=== PATIENT | female | born 1945 | race Caucasian/White ===

== ENCOUNTER 2022-09-14 07:12 | Outpatient (OUT) | payer MEDICARE, OTHER, SELFPAY ==
[2022-09-14 07:46] LABS: Basophils Absolute Auto 0.1 10^3/uL (0.0-0.1); Eosinophils Absolute Auto 0.2 10^3/uL (0.0-0.7); Eosinophils Percent Auto 2.8 % (0.9-7.0); Hematocrit 40.9 % (36.0-48.0); Hemoglobin 13.4 g/dL (12.0-16.0); Immature Granulocytes Abs Auto 0.01 10^3/uL (0.00-0.03); Immature Granulocytes Pct Auto 0.2 % (0.0-0.5); Lymphocytes Percent Auto 17.1 % (20.5-60.0); Mean Corpuscular HGB Conc 32.8 g/dL (29.9-35.2); Mean Corpuscular Hemoglobin 30.2 pg (26.7-34.0); Mean Corpuscular Volume 92.1 fL (81.0-99.0); Mean Platelet Volume 9.7 fL (9.5-13.5); Monocytes Absolute Auto 0.6 10^3/uL (0.3-0.8); Monocytes Percent Auto 9.7 % (1.7-12.0); Neutrophils Percent Auto 69.2 % (43.0-75.0); Platelet Count 236 10^3/uL (150-450); Red Blood Count 4.44 10^6/uL (4.20-5.40); Red Cell Distribution Width 13.9 % (11.0-15.0); White Blood Count 5.8 10^3/uL (4.0-11.0)
[2022-09-14 08:47] LABS: Bilirubin Urine NEGATIVE (NEGATIVE); Blood Urine NEGATIVE (NEGATIVE); Clarity Urine CLEAR (CLEAR); Color Urine LT. YELLOW (YELLOW); Glucose Urine UA NEGATIVE (NEGATIVE); Ketones Urine NEGATIVE (NEGATIVE); Leukocyte Esterase Urine TRACE (NEGATIVE); Nitrite Urine NEGATIVE (NEGATIVE); Protein Urine NEGATIVE (NEG/TRACE); Specific Gravity Urine 1.015 (1.005-1.025); Urobilinogen Urine 0.2 EU/dL (0.2-1.0); pH Urine 6.5 (5.0-9.0)
[2022-09-14 08:56] LABS: Bacteria Urine TRACE #/HPF (NONE SEEN); RBC Urine 0-2 #/HPF (0-2)
[2022-09-14 08:57] LABS: Cast Seen? NONE SEEN #/LPF (NONE SEEN); Crystals Seen? None Seen #/HPF (None Seen); Mucus Urine NONE SEEN (NONE SEEN); Squamous Epithelial Cell Urine RARE #/LPF (NONE/RARE); Urine Culture Indicated NO
[2022-09-14 10:08] LABS: Free T4 1.27 ng/dL (0.76-1.46)
[2022-09-14 10:13] LABS: Alanine Aminotransferase 19 U/L (14-59); Albumin Level 3.9 g/dL (3.4-5.0); Alkaline Phosphatase 87 U/L (46-116); Anion Gap 11.7; Aspartate Amino Transferase 9 U/L (15-37); BUN Creatinine Ratio 12.7; Bilirubin Total 0.4 mg/dL (0.2-1.0); Calcium 9.3 mg/dL (8.5-10.1); Carbon Dioxide 29.2 mmol/L (21.0-32.0); Chloride 101 mmol/L (98-107); Chol HDL Ratio 4.3; Cholesterol 265 mg/dL (<=200); Estimated GFR (African America >60 (>=60); Estimated GFR (Non-African Ame 53 (>=60); Free T3 2.03 pg/mL (2.18-3.98); Glucose 83 mg/dL (74-106); HDL Cholesterol 61 mg/dL (40-60); Potassium 3.9 mmol/L (3.5-5.1); Sodium 138 mmol/L (136-145); Thyroid Stimulating Hormone 2.993 uIU/mL (0.358-3.740); Total Protein 7.9 g/dL (6.4-8.2); Triglycerides 142 mg/dL (<=150); VLDL CHOLESTEROL 28.4 mg/dL
== END 2022-09-14 07:13 | disposition home or self-care (01) ==
LOC: LAB 07:17
PROVIDERS: PCP Nurse Practitioner; Visit Provider Nurse Practitioner
DX: E06.3 Autoimmune thyroiditis (principal); I73.9 Peripheral vascular disease, unspecified; Z72.0 Tobacco use
CPT/HCPCS: 36415; 80053; 80061; 81001; 84439; 84443; 84481; 85025

== ENCOUNTER 2022-09-15 08:51 | Outpatient (OUT) | payer MEDICARE, OTHER, SELFPAY ==
--- NOTE | 2022-09-15 09:15 | MM_ITS ---
Patient: MARGARITA COSME Exam Date: 09/15/2022 : 1945 Gender:F Ordering : BECKY Ruth Humphries [employer]PER[employer] HELPER Admission #: [id number] Family : Order #: [id number] CLICK HERE TO VIEW EXAM RADIOLOGY REPORT PROCEDURE: MM TOMOSYNTHESIS SCREENING BI COMPARISON: MG MAMM SCREEN ISIDRO W CAD, 07/31/2019. MG MAMM SCREEN ISIDRO W CAD, 07/19/2016. INDICATIONS: Screening Calculator Name NCI Breast Cancer Risk Assessment Tool 5 Year Breast Cancer Risk 1.70% Lifetime Breast Cancer Risk 3.50% Personal Breast Cancer No Personal Ovarian Cancer No Treatments None Family Cancers Sister with cervical cancer at age ~30. LOCATION: [facility] BREAST COMPOSITION: Heterogeneously dense,which may obscure small masses. FINDINGS: DIAGNOSTIC CATEGORY 1--NEGATIVE. NO CHANGE FROM COMPARISON ASSESSMENT. Scattered benign-appearing calcifications are present. RIGHT BREAST: No significant suspicious finding. LEFT BREAST: No significant suspicious finding. RECOMMENDATIONS: ROUTINE MAMMOGRAM AND CLINICAL EVALUATION IN 12 MONTHS. PLEASE NOTE: A NORMAL MAMMOGRAM DOES NOT EXCLUDE THE POSSIBILITY OF BREAST CANCER. A CLINICALLY SUSPICIOUS PALPABLE LUMP SHOULD BE BIOPSIED. Dictated by: Ender Hebert MD on 09/15/2022 at 10:16 Approved by: Ender Hebert MD on 09/15/2022 at 10:17
== END 2022-09-15 08:52 | disposition home or self-care (01) ==
LOC: MAMMO 08:51
PROVIDERS: PCP Nurse Practitioner; Visit Provider Nurse Practitioner
DX: Z12.31 Encounter for screening mammogram for malignant neoplasm of breast (principal); Z80.3 Family history of malignant neoplasm of breast
CPT/HCPCS: 77063; 77067

== ENCOUNTER 2023-03-14 12:58 | Outpatient (OUT) | payer MEDICARE, OTHER, SELFPAY ==
--- NOTE | 2023-03-14 13:08 | XR_ITS ---
The [address] [address] Patient Name: MARGARITA COSME MRN: [id number] date: 1945 Sex: F Assigned Patient Location: LAB Current Patient Location: LAB Accession/Order Number: [id number] Exam Date: 03/14/2023 13:15 Report Date: 03/14/2023 14:55 At the request of: CRISTIAN MCCOY Procedure: XR abdomen 1V EXAM: XR chest 2V, XR ribs LT 2V, XR abdomen 1V HISTORY: Left Side Rib Pain R07.81 COMPARISON: CT angiography abdominal aorta dated 02/07/2020. TECHNIQUE: PA and lateral views of the chest were obtained. FINDINGS: Heart and mediastinal contours are unremarkable in appearance. Findings compatible with calcified granuloma in the right midlung field posteriorly. Small faint patchy density overlying the right midlung field laterally on PA view compatible with mild atelectatic, fibrotic and/or minimal infiltrative change. No obvious pneumothorax. Mild degenerative changes in the dorsal spine with slight S-shaped convexity. AP supine view of the abdomen was obtained. FINDINGS: Bowel gas pattern is grossly nonspecific. No evidence of bowel obstruction. Mildly scattered calcifications overlying the pelvis compatible with phleboliths. Moderate degenerative changes about the visualized lower lumbar spine with mild degenerative changes about the hip joints. Left rib series was performed. FINDINGS: No obvious displaced or deforming rib fractures are seen, small undisplaced fractures may be difficult to identify acutely. No obvious focal lytic or sclerotic lesions are identified. No obvious pneumothorax. Slight S-shaped convexity of the thoracic spine. XR/XR abdomen 1V IMPRESSION: 1. Chest study demonstrates small faint patchy density overlying the right midlung field laterally on PA view compatible with mild atelectatic, fibrotic and/or minimal infiltrative changes. 2. Abdomen study demonstrates grossly nonspecific bowel gas pattern. 3. Left rib series fails to demonstrate obvious displaced or deforming fracture. No obvious pneumothorax. 4. Follow-up as needed. Electronically authenticated by: KO CALDERON Date: 03/14/2023 14:55
--- NOTE | 2023-03-14 13:08 | XR_ITS ---
The [address] [address] Patient Name: MARGARITA COSME MRN: [id number] date: 1945 Sex: F Assigned Patient Location: LAB Current Patient Location: LAB Accession/Order Number: [id number] Exam Date: 03/14/2023 13:15 Report Date: 03/14/2023 14:55 At the request of: CRISTIAN MCCOY Procedure: XR ribs LT 2V EXAM: XR chest 2V, XR ribs LT 2V, XR abdomen 1V HISTORY: Left Side Rib Pain R07.81 COMPARISON: CT angiography abdominal aorta dated 02/07/2020. TECHNIQUE: PA and lateral views of the chest were obtained. FINDINGS: Heart and mediastinal contours are unremarkable in appearance. Findings compatible with calcified granuloma in the right midlung field posteriorly. Small faint patchy density overlying the right midlung field laterally on PA view compatible with mild atelectatic, fibrotic and/or minimal infiltrative change. No obvious pneumothorax. Mild degenerative changes in the dorsal spine with slight S-shaped convexity. AP supine view of the abdomen was obtained. FINDINGS: Bowel gas pattern is grossly nonspecific. No evidence of bowel obstruction. Mildly scattered calcifications overlying the pelvis compatible with phleboliths. Moderate degenerative changes about the visualized lower lumbar spine with mild degenerative changes about the hip joints. Left rib series was performed. FINDINGS: No obvious displaced or deforming rib fractures are seen, small undisplaced fractures may be difficult to identify acutely. No obvious focal lytic or sclerotic lesions are identified. No obvious pneumothorax. Slight S-shaped convexity of the thoracic spine. XR/XR ribs LT 2V IMPRESSION: 1. Chest study demonstrates small faint patchy density overlying the right midlung field laterally on PA view compatible with mild atelectatic, fibrotic and/or minimal infiltrative changes. 2. Abdomen study demonstrates grossly nonspecific bowel gas pattern. 3. Left rib series fails to demonstrate obvious displaced or deforming fracture. No obvious pneumothorax. 4. Follow-up as needed. Electronically authenticated by: KO CALDERON Date: 03/14/2023 14:55
--- NOTE | 2023-03-14 13:08 | XR_ITS ---
The [address] [address] Patient Name: MARGARITA COSME MRN: [id number] date: 1945 Sex: F Assigned Patient Location: LAB Current Patient Location: LAB Accession/Order Number: [id number] Exam Date: 03/14/2023 13:15 Report Date: 03/14/2023 14:55 At the request of: CRISTIAN MCCOY Procedure: XR chest 2V EXAM: XR chest 2V, XR ribs LT 2V, XR abdomen 1V HISTORY: Left Side Rib Pain R07.81 COMPARISON: CT angiography abdominal aorta dated 02/07/2020. TECHNIQUE: PA and lateral views of the chest were obtained. FINDINGS: Heart and mediastinal contours are unremarkable in appearance. Findings compatible with calcified granuloma in the right midlung field posteriorly. Small faint patchy density overlying the right midlung field laterally on PA view compatible with mild atelectatic, fibrotic and/or minimal infiltrative change. No obvious pneumothorax. Mild degenerative changes in the dorsal spine with slight S-shaped convexity. AP supine view of the abdomen was obtained. FINDINGS: Bowel gas pattern is grossly nonspecific. No evidence of bowel obstruction. Mildly scattered calcifications overlying the pelvis compatible with phleboliths. Moderate degenerative changes about the visualized lower lumbar spine with mild degenerative changes about the hip joints. Left rib series was performed. FINDINGS: No obvious displaced or deforming rib fractures are seen, small undisplaced fractures may be difficult to identify acutely. No obvious focal lytic or sclerotic lesions are identified. No obvious pneumothorax. Slight S-shaped convexity of the thoracic spine. XR/XR chest 2V IMPRESSION: 1. Chest study demonstrates small faint patchy density overlying the right midlung field laterally on PA view compatible with mild atelectatic, fibrotic and/or minimal infiltrative changes. 2. Abdomen study demonstrates grossly nonspecific bowel gas pattern. 3. Left rib series fails to demonstrate obvious displaced or deforming fracture. No obvious pneumothorax. 4. Follow-up as needed. Electronically authenticated by: KO CALDERON Date: 03/14/2023 14:55
[2023-03-14 13:36] LABS: Bilirubin Urine NEGATIVE (NEGATIVE); Blood Urine NEGATIVE (NEGATIVE); Clarity Urine CLEAR (CLEAR); Color Urine LT. YELLOW (YELLOW); Glucose Urine UA NEGATIVE (NEGATIVE); Ketones Urine NEGATIVE (NEGATIVE); Leukocyte Esterase Urine SMALL (NEGATIVE); Nitrite Urine NEGATIVE (NEGATIVE); Protein Urine NEGATIVE (NEG/TRACE); Urobilinogen Urine 0.2 EU/dL (0.2-1.0); pH Urine 5.5 (5.0-9.0)
[2023-03-14 14:02] LABS: Urine Microscopic Indicated YES
[2023-03-14 14:09] LABS: Bacteria Urine TRACE #/HPF (NONE SEEN); Mucus Urine NONE SEEN (NONE SEEN); RBC Urine NONE SEEN #/HPF (0-2); Squamous Epithelial Cell Urine FEW #/LPF (NONE/RARE)
[2023-03-14 14:10] LABS: Urine Culture Indicated YES
== END 2023-03-14 12:59 | disposition home or self-care (01) ==
LOC: LAB 13:00
PROVIDERS: PCP Nurse Practitioner; Visit Provider Nurse Practitioner
DX: R10.9 Unspecified abdominal pain (principal); R07.81 Pleurodynia; K62.5 Hemorrhage of anus and rectum
CPT/HCPCS: 71046; 71100; 74018; 81001; 87086

== ENCOUNTER 2023-03-16 12:17 | Outpatient (OUT) | payer MEDICARE, OTHER, SELFPAY ==
--- OUTSIDE RECORDS SUMMARY | 2023-03-16 12:20 | XMS_ITS | CCD ---
Author Name Unknown Address [address] [facility] [address] [place] [address] Organization [facility] Care Team Providers Care Data Migration Consultant Name Role Phone House, Sr Kvng Gutierrez Primary Care Provider JARROD BRADLEY Referring Unavailable HOUSE, SR KVNG P Primary Care Unavailable JARROD BRADLEY Referring Unavailable HOUSE, SR KVNG P Primary Care Unavailable JARROD BRADLEY Referring Unavailable HOUSE, SR KVNG P Primary Care Unavailable House DO, Sr Kvng P Primary Care Provider Amber PA-C, Jayla Tavares Attending Unavai lable Coppell, Kvng Primary Care Unavailable Gayhart PA-C, Jayla Tavares Attending Unavai lable Coppell, Kvng Primary Care Unavailable Gayhart PA-C, Jayla Tavares Attending Unavai lable Coppell, Kvng Primary Care Unavailable Cornelio AuD, Angelica Alfaro Attending Unavaila ble Copp[place], [facility] Primary Care Unavailable Eris Hartman, Purnima Sanders Attending Unavailable Coppell, Kvng Primary Care Unavailable Gayhart PA-C, Jayla Tavares Referring Unavasteve Harley MD, Germain Haines Attending Unavailable [place], Kvng Primary Care Unavailable Gayhart PA-C, Jayla Tavares Attending Unavai lable Coppell, Kvng Primary Care Unavailable Gayhart PA-C, Jayla Tavares Attending Unavai lable Gayhart PA-C, Jayla Tavares Referring Unavai lable Coppell, Kvng Primary Care Unavailable Gayhart PA-C, Jayla Tavares Attending Unavai lable Coppell, Kvng Primary Care Unavailable Cornelio AuD, Angelica Alfaro Attending Unavaila ble Coppell, Kvng Primary Care Unavailable Gayhart PA-C, Jayla Tavares Referring Unavai lable Gayhart PA-C, Jayla Tavares Attending [facility], Kvng Primary Care Unavailable Amber RODRIGUEZ, Jayla Tavares Attending [facility], Kvng [facility] Unavailable ULICES CLARKE Attending Unavailable ULICES CLARKE Consulting Unavailable ULICES CLARKE Admitting Unavailable MARICHUY, DR COLON Primary Care Unavailable KRYSTAL WEST Consulting Unavailable ULICES CLARKE Attending Unavailable ULICES CLARKE Consulting Unavailable ULICES CLARKE Admitting Unavailable MARICHUY, DR COLON Primary Care Unavailable DIAB ., BENEDICT Attending Unavailable DIAB ., BENEDICT Admitting Unavailable DRY RUN, DR COLON Primary Care Unavailable ANGEL LA Consulting UnavailNuzhat Nguyen Unavailable Reyna Santos Unavailable Pao Terry Unavailable CRISTIAN MCCOY Attending Unavailable AICCRISTIAN OLIVARES Attending Unavailable AICHCRISTIAN OCAMPO Attending Unavailable Allergies Allergy Classification Reported Allergen(s) Allergy Type Date of Onset Reaction(s) Facility (4 sources) Aluminum aspirin; Translations: [aspirin] Drug Allergy 06-30-19 16 [place] (6 sources) moxifloxacin Drug Allergy 07-17-19 15 Anaphylaxis [place] (3 sources) Sulfamethoxazole / Trimethoprim Drug Allergy 12-09-19 22 Other (See Comments) [facility] Work Phone: (2 sources) moxifloxacin; Translations: [Avelox] Drug Allergy [facility] Repository (1 source) Penicillin; Translations: [penicillin] Drug Allergy [facility] Repository (1 source) Aspirin Drug Allergy [facility] Repository (3 sources) Aspirin Drug Allergy heart rate increased Variable Other (3 sources) Penicillin G Drug Allergy feels funky Variable Other Medications Current Medications Medication Drug Class(es) Dates Sig (Normalized) Sig (Original) acetaminophen 325 mg oral tablet (6 sources) take 1 tablet by dayana th every four hours Tylenol 325 MG 1 tablet as needed Orally every 4 hrs Active take 1 tablet by dayana th every six hours as needed for pain acetaminophen (TYLENOL) 500 MG tablet Ta ke 500 mg by mouth every 6 hours as needed for Pain 0 Active clindamycin 20 mg/ml vaginal cream (1 source) Lincosamide Antibacterial Start: 12-20-2019 clindamycin (CLEOCIN) 2 % vaginal cream Indications: Group B streptococcal infection Place vaginally nightly for 7 nights. 1 Tube 0 12/20/2019 Active clobetasol propionate 0.5 mg/ml topical cream (2 sources) Corticosteroid Start: 08-10-2016 clobetasol (TEMOVATE) 0.05 % cream Indications: Vaginal irritation Apply topically 2 times daily. 1 Tube 1 08/10/2016 Active clopidogrel 75 mg oral tablet (4 sources) P2Y12 Platelet Inhibitor take 1 tablet by mouth every twenty-four hours Plavix 75 MG 1 tablet Orally Once a day Active Clopidogrel Bisu lfate (PLAVIX PO) Take by mouth 0 Active famotidine 20 mg oral tablet (3 sources) Histamine-2 Receptor Antagonist take 1 tablet by mouth every twenty-four hours Pepcid 20 MG 1 tablet at bedtime as needed Orally Once a day Active fluticasone propionate 0.05 mg/actuat metered dose nasal spray (1 source) Corticosteroid Start: take 1 spray(s) nasal route once daily Fluticasone Propionate 50 MCG/ACT 1 spray in each nostril Nasally Once a day for Feb, Active levothyroxine sodium 0.075 mg oral capsule (6 sources) l-Thyroxine Levothyroxine Sodium 75 MCG as directed Orally Active Levothyroxine So dium 75 MCG as directed Orally Active take 1 tablet by mouth once sejal y levothyroxine (SYNTHROID) 50 MCG tablet Take 50 mcg by mouth Daily 0 Active LORazepam 1 mg oral tablet (6 sources) Benzodiazepine Start: 06-27-2015 LORazepam (ATIVAN) 1 MG tablet omeprazole 10 mg delayed release oral capsule (3 sources) Proton Pump Inhibitor take 1 capsule by mouth once daily omeprazole (PRILOSEC) 10 MG capsule Take 10 mg by mouth daily 0 Active Probiotic (3 sources) Completed/Discontinued Medications Medication Drug Class(es) Dates Sig (Normalized) Sig (Original) atorvastatin 40 mg oral tablet (3 sources) HMG-CoA Reductase Inhibitor Start: 03-12-2020 take 1 tablet by mouth every twenty-four hours Atorvastatin Calcium 40 MG 1 tablet Orally Once a day for 30 day(s) Feb, Not-Taking/PRN Problems Problem Classification Problem Date Documented Date Episodic/Chronic Abdominal pain (1 source) Lower abdominal pain, unspecified Episodic Administrative/social admission (4 sources) Encounter for issue of repeat prescription; Translations: [ENC FOR ISSUE REPEAT PRESCRIPTION] Onset: 07-23-2022 Episodic Aortic and peripheral arterial embolism or thrombosis (3 sources) 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; Translations: [Embolism and thrombosis of arteries of the lower extremities] Chronic Chronic kidney disease (3 sources) Chronic kidney disease stage 3; Translations: [Chronic kidney disease, stage 3 (moderate)] Chronic Esophageal disorders (3 sources) Gastroesophageal reflux disease; Translations: [Gastro-esophageal reflux disease without esophagitis] Chronic Genitourinary symptoms and ill-defined conditions (4 sources) Increased frequency of urination; Translations: [Dysuria] Onset: 12-08-2021 Episodic Immunizations and screening for infectious disease (4 sources) Exposure to sexually transmissible disorder; Translations: [Encounter for immunization] Onset: 08-25-2021 Episodic Inflammatory diseases of female pelvic organs (1 source) Infective vaginitis ; Translations: [Vaginal infection] Episodic Other aftercare (1 source) Other retirement (current) drug therapy; Translations: [OTH INTERMEDIATE CURRENT DRUG THERAPY] Onset: 07-26-2022 Episodic Other female genital disorders (1 source) Vaginal irritation; Translations: [Vaginal irritation] Episodic Other upper respiratory infections (4 sources) Streptococcal sore throat; Translations: [Strep throat] Episodic Peripheral and visceral atherosclerosis (3 sources) Peripheral vascular disease; Translations: [Peripheral vascular disease, unspecified] Chronic Substance-related disorders (1 source) Nicotine dependence, cigarettes, uncomplicated; Translations: [NICOTINE DEPEND CIGARETTES UNCOMP] Onset: 07-26-2022 Chronic Thyroid disorders (12 sources) Autoimmune thyroiditis; 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] Onset: 07-16-2014 08-10-2016 Chronic Unclassified (1 source) LOW BACK PAIN, UNSPECIFIED; Translations: [LOW BACK PAIN, UNSPECIFIED] Onset: 08-21-2021 Viral infection (4 sources) COVID-19; Translations: [COVID-19] Onset: 08-21-2021 Results Test Name Value Interpretation Reference Range Facility COVID + FLU Quick Testingon 03-08-2023 SARS-CoV-2 (COVID-19) RNA ISABELA+probe Ql (Unsp spec) Negative Variable Other COVID + FLU Quick Testing Negative Variable Other Urinalysis - AUTOMATEDon Appearance (U) clear [facility] Other Bilirubin Ql (U) Negative [facility] Other Color (U) yellow Variable Other Glucose Ql (U) Negative [facility] Other Hemoglobin Ql (U) Negative [facility] Other Ketones Ql (U) Negative [facility] Other Leukocyte esterase Test strip Ql (U) Negative Variable Other Nitrite Ql (U) Negative [facility] Other pH (U) 5.5 [pH] Variable Other Protein Ql (U) Negative [facility] Other Specific gravity (U) [Rel density] >1.030 Variable Other Urobilinogen (U) [Mass/Vol] 0.2 mg/dL Variable Other Urinalysis - AUTOMATED Variable Other Urinalysis - AUTOMATEDon Appearance (U) cloudy [facility] Other Bilirubin Ql (U) Negative [employer] Other Color (U) yellow Variable Other Glucose Ql (U) Negative [facility] Other Hemoglobin Ql (U) Negative [facility] Other Ketones Ql (U) Negative [facility] Other Leukocyte esterase Test strip Ql (U) trace Variable Other Nitrite Ql (U) Negative [facility] Other pH (U) 6.0 [pH] Variable Other Protein Ql (U) Negative [facility] Other Specific gravity (U) [Rel density] 1.025 Variable Other Urobilinogen (U) [Mass/Vol] 0.2 E.U d/l Variable Other Urinalysis - AUTOMATED Variable Other Otolaryngology Office/Clinic Noteon 05-26-2022 Otolaryngology Office/Clinic Note Chief Complaint Pt states I am here for rt ear. History of Present Illness History of Present Illness HPI: Pt is a 77 yr old female in office for ear drainage. Pt states decreased hearing, since recent infection. This required ear drops and she has improved. HEaring is not quite as good as it was prior to infection Review of Systems General Adult ROS Fatigue: No Appetite change: No Other General: No Weakness: No Weight gain: No Weight Loss: No Cardiovascular Chest pain/pressure: No Claudication: No Edema: No Orthopnea: No Other Cardiovascular: No Palpitations: No Syncope: No EENMT Bleeding gums: No Dental pain: No Ear drainage: No Ear pain: No Facial pain: No Hearing loss: Yes Hoarseness: No Mouth lesions: No Nasal congestion: No Nasal discharge: No Nosebleeds: No Other EENMT: No Postnasal drainage: No Sore_throat: No Tinnitus: No Vision Changes: No Gastrointestinal Abdominal pain: No Constipation: No Diarrhea: No Dysphagia: No Fecal incontinence: No Heartburn: No Nausea: No Other GI: No Stools, black/bloody: No Vomiting: No Vomiting blood: No Genitourinary Decreased urine output: No Dysuria: No Frequency: No Genital irritation: No Hematuria: No Hesitancy: No Impaired urge sensation: No Other Genitourinary: No Polyuria: No Sexual dysfunction: No Urgency: No Urinary Incontinence: No Vaginal discharge: No Hematologic/Lymphatic Musculoskeletal Neurological Psychiatric Respiratory Apnea: No Cough: No Hemoptysis: No Other Respiratory: No Shortness_of_breath: No Snoring: No Sputum production: No Wheezing: No Skin Physical Exam Additional Vitals No qualifying data available. Overall:[Communication mode is clear, normal] [Appearance- no acute distress, appears stated age and is well nourished] Assistive device:[ none] Head:[normocephalic, no trauma, lesions or asymmetry] Ocular appearance:[ Conjuctiva- clear and bright, no drainage or infection. EOM intact] Ears:[ external ear- normal shape, no signs of infection, mass, lesion or asymmetry bilaterally. Ear canal is healthy, free from wax and infection, bilaterally] [Eardrum-healthy, no sign of infection, trauma, perforation or infection, left. RIght has clean dry central TM perf] [Middle ear- healthy, no obvious fluid present or infection] Nose:[ External- healthy, no sign of asymmetry, lesion or infection]]. Mental Status:[Alert and oriented x3][Mood and affect normal][Gait is normal]. Assessment/Plan 1. Perforation of right tympanic membrane Pt has TM perf on the right. Pt reassured there is no infection present. Hole may close and fluid may recur so pt is to notify office if issues arise. Otherwise keep ear clean and dry Medical Decision Making Chronic conditions NOT treated during this visit that affected my overall medical decision making: [] Treatment plans discussed but not opted for at this time: [] Prescribed medication that requires intensive monitoring for toxicity: [] I have reviewed the patient?s medication list for medication interactions/contraindi cations and/or for upcoming procedures: [yes or no] Time Spent with the Patient I have personally spent [23] minutes on this date, directly related to today's patient visit, including pre and post visit work, for this date of service. Time listed does not include time spent on separately billable services. Problem List/Past Medical History Ongoing Acid reflux Sussy disease Historical No qualifying data Procedure/Surgical History appendectomy bowel scar tissue removed hysterectomy Medications clopidogrel 75 mg oral tablet levothyroxine 50 mcg (0.05 mg) oral capsule, 50 mcg= 1 caps, Oral, Daily levothyroxine 75 mcg (0.075 mg) oral tablet LORazepam 0.5 mg oral tablet, 0.5 mg= 1 tabs, Oral, TID, PRN LORazepam 1 mg oral tablet PriLOSEC 20 mg oral delayed release capsule, 20 mg= 1 caps, Oral, Daily Tylenol 325 mg oral capsule, 650 mg= 2 caps, Oral, q4hr, PRN Allergies Avelox (throat swell) aspirin (Tachycardia) penicillin (pt states she felt off) Social History Tobacco 5-9 cigarettes (between 1/4 to 1/2 pack)/day in last 30 days Use:. Cigarettes, 10 per day. 20 year(s). Family History Diabetes mellitus: Mother, Grandchild and Sibling. Heart attack: Father. Electronically signed by ___ Jayla Clark PA-C 05/28/22 22:27 EDT Normal [facility] Otolaryngology Office/Clinic Noteon 05-11-2022 Otolaryngology Office/Clinic Note Chief Complaint Pt states I am here for rt ear drainage. History of Present Illness History of Present Illness HPI: Pt is a 77 yr old female in office for rt ear drainage. Pt denies any other symptoms. Pt has sig hx of ME issues with fluid bilat, she was bordering on and planning for PET placement but she flet her ears pop open and hearing improved. SHe has for the last week however developed right ear drainage. Review of Systems General Adult ROS Fatigue: No Appetite change: No Other General: No Weakness: No Weight gain: No Weight Loss: No Cardiovascular Chest pain/pressure: No Claudication: No Edema: No Orthopnea: No Other Cardiovascular: No Palpitations: No Syncope: No EENMT Bleeding gums: No Dental pain: No Ear drainage: Yes Ear pain: No Facial pain: Yes Hearing loss: No Hoarseness: No Mouth lesions: No Nasal congestion: No Nasal discharge: No Nosebleeds: No Other EENMT: No Postnasal drainage: No Sore_throat: No Tinnitus: No Vision Changes: No Gastrointestinal Abdominal pain: No Constipation: No Diarrhea: No Dysphagia: No Fecal incontinence: No Heartburn: No Nausea: No Other GI: No Stools, black/bloody: No Vomiting: No Vomiting blood: No Genitourinary Decreased urine output: No Dysuria: No Frequency: No Genital irritation: No Hematuria: No Hesitancy: No Impaired urge sensation: No Other Genitourinary: No Polyuria: No Sexual dysfunction: No Urgency: No Urinary Incontinence: No Vaginal discharge: No Hematologic/Lymphatic Musculoskeletal Neurological Psychiatric Respiratory Apnea: No Cough: No Hemoptysis: No Other Respiratory: No Shortness_of_breath: No Snoring: No Sputum production: No Wheezing: No Skin Physical Exam Additional Vitals No qualifying data available. Overall:[Communication mode is clear, normal] [Appearance- no acute distress, appears stated age and is well nourished] Assistive device:[ none] Head:[normocephalic, no trauma, lesions or asymmetry] Ocular appearance:[ Conjuctiva- clear and bright, no drainage or infection. EOM intact] Ears:[ external ear- normal shape, no signs of infection, mass, lesion or asymmetry bilaterally. Ear canal is healthy, free from wax and infection, left. Right has drainage in the canal] [Eardrum-left drum is retracted, right has wetness with perf present] Mental Status:[Alert and oriented x3][Mood and affect normal][Gait is normal]. Assessment/Plan 1. Otorrhea of right ear Pt has chronic ME issues with drainage in the right ear. Perf present and is infected. Drops given to treat this infection. Recheck in 2 weeks to ensure resolution 2. Chronic serous otitis media, bilateral Medical Decision Making Chronic conditions NOT treated during this visit that affected my overall medical decision making: [] Treatment plans discussed but not opted for at this time: [] Prescribed medication that requires intensive monitoring for toxicity: [] I have reviewed the patient?s medication list for medication interactions/contraindi cations and/or for upcoming procedures: [yes or no] Time Spent with the Patient I have personally spent [27] minutes on this date, directly related to today's patient visit, including pre and post visit work, for this date of service. Time listed does not include time spent on separately billable services. Problem List/Past Medical History Ongoing Acid reflux Sussy disease Historical No qualifying data Procedure/Surgical History appendectomy bowel scar tissue removed hysterectomy Medications clopidogrel 75 mg oral tablet levothyroxine 50 mcg (0.05 mg) oral capsule, 50 mcg= 1 caps, Oral, Daily levothyroxine 75 mcg (0.075 mg) oral tablet LORazepam 0.5 mg oral tablet, 0.5 mg= 1 tabs, Oral, TID, PRN LORazepam 1 mg oral tablet PriLOSEC 20 mg oral delayed release capsule, 20 mg= 1 caps, Oral, Daily Tylenol 325 mg oral capsule, 650 mg= 2 caps, Oral, q4hr, PRN Allergies Avelox (throat swell) aspirin (Tachycardia) penicillin (pt states she felt off) Social History Tobacco 5-9 cigarettes (between 1/4 to 1/2 pack)/day in last 30 days Use:. Cigarettes, 10 per day. 20 year(s). Family History Diabetes mellitus: Mother, Grandchild and Sibling. Heart attack: Father. Electronically signed by ___ Jayla Clark PA-C 05/14/22 15:32 EDT Normal [facility] Otolaryngology Office/Clinic Noteon 04-13-2022 Otolaryngology Office/Clinic Note Chief Complaint Pt states I am here for ear check. History of Present Illness History of Present Illness HPI: Pt is a 76 yr old female in office for ears. Pt still cant hear out of ears. SHe has hx of PET multiple times in the past. THe last PET was placed in the office several years ago and while in place she does well. Ears have recently plugged back up and hearing is significantly reduced. Pt states the last time PET placed was incredibly painful when placed Review of Systems General Adult ROS Fatigue: No Appetite change: No Other General: No Weakness: No Weight gain: No Weight Loss: No Cardiovascular Chest pain/pressure: No Claudication: No Edema: No Orthopnea: No Other Cardiovascular: No Palpitations: No Syncope: No EENMT Bleeding gums: No Dental pain: No Ear drainage: No Ear pain: No Facial pain: No Hearing loss: Yes Hoarseness: No Mouth lesions: No Nasal congestion: No Nasal discharge: No Nosebleeds: No Other EENMT: No Postnasal drainage: No Sore_throat: No Tinnitus: No Vision Changes: No Gastrointestinal Abdominal pain: No Constipation: No Diarrhea: No Dysphagia: No Fecal incontinence: No Heartburn: No Nausea: No Other GI: No Stools, black/bloody: No Vomiting: No Vomiting blood: No Genitourinary Decreased urine output: No Dysuria: No Frequency: No Genital irritation: No Hematuria: No Hesitancy: No Impaired urge sensation: No Other Genitourinary: No Polyuria: No Sexual dysfunction: No Urgency: No Urinary Incontinence: No Vaginal discharge: No Hematologic/Lymphatic Musculoskeletal Neurological Psychiatric Respiratory Apnea: No Cough: No Hemoptysis: No Other Respiratory: No Shortness_of_breath: No Snoring: No Sputum production: No Wheezing: No Skin Physical Exam Vitals & Measurements T: 36.8 ?C (Temporal Artery) HT: 160.8 cm WT: 55.8 kg WT: 55.8 kg (Dosing) BMI: 21.58 Additional Vitals No qualifying data available. Overall:[Communication mode is clear, normal] [Appearance- no acute distress, appears stated age and is well nourished] Assistive device:[ none] Head:[normocephalic, no trauma, lesions or asymmetry] Ocular appearance:[ Conjuctiva- clear and bright, no drainage or infection. EOM intact] Ears:[ external ear- normal shape, no signs of infection, mass, lesion or asymmetry bilaterally. Ear canal is healthy, free from wax and infection, bilaterally] [Eardrum-sig retraction bilat ] [Middle ear- fluid bilat] Nose:[ External- healthy, no sign of asymmetry, lesion or infection] Septum:[ Midline, no sign of perforation, infection or deviation] Turbinates:[ normal, no hypertrophy, mass or polyp] Nasal passages:[ clear, no infection, drainage or obstruction] Oral cavity:[ Normal, tongue healthy no mass, lesion or infection. Soft and hard palate normal. Bimanual palpation is normal. Mucosa moist, free from infection][ Benign gingiva, good dental hygiene][Tonsil size is normal, no asymmetry, mass or lesionn][oropharynx- clear, no evidence of post nasal drip, cobblestoning or other abnormalities] Mental Status:[Alert and oriented x3][Mood and affect normal][Gait is normal]. Tympanogram: flat bilat] Assessment/Plan 1. Chronic serous otitis media, bilateral Pt has sig issues with hx of ME issues and multiple PET placed. THe last set placed was significantly uncomfortable to do in office. Once PETs fallout, fluid recurs very quickly. This markedly affects hearing. Discussed options. PETs need replaced. Pt initially insisted on office replacement but T TUbes are needed this time due to repetitive issues, so appt was made with Dr. Harley. AFter some thought due to pain with last placement, sedated T tubes planed.Risk benefit alternative reviewed and informed consent obtained Medical Decision Making Chronic conditions NOT treated during this visit that affected my overall medical decision making: [] Treatment plans discussed but not opted for at this time: [] Prescribed medication that requires intensive monitoring for toxicity: [] I have reviewed the patient?s medication list for medication interactions/contraindi cations and/or for upcoming procedures: [yes or no] Time Spent with the Patient I have personally spent [28] minutes on this date, directly related to today's patient visit, including pre and post visit work, for this date of service. Time listed does not include time spent on separately billable services. Problem List/Past Medical History Ongoing Acid reflux Sussy disease Historical No qualifying data Procedure/Surgical History appendectomy bowel scar tissue removed hysterectomy Medications clopidogrel 75 mg oral tablet levothyroxine 50 mcg (0.05 mg) oral capsule, 50 mcg= 1 caps, Oral, Daily levothyroxine 75 mcg (0.075 mg) oral tablet LORazepam 0.5 mg oral tablet, 0.5 mg= 1 tabs, Oral, TID, PRN LORazepam 1 mg oral tablet PriLOSEC 20 mg oral delayed releas (more content not included)... Normal [facility] Otolaryngology Office/Clinic Noteon 03-29-2022 Otolaryngology Office/Clinic Note Chief Complaint Pt states here for ear cleaning History of Present Illness History of Present Illness HPI: Daphne is here today for ear cleaning. Pt feels she cannot hear well out of her right ear and her left ear has been draining alot. She has hx of PET in the past and is unsure if still in place Review of Systems General Adult ROS Fatigue: No Appetite change: No Other General: No Weakness: No Weight gain: No Weight Loss: No Cardiovascular Chest pain/pressure: No Claudication: No Edema: No Orthopnea: No Other Cardiovascular: No Palpitations: No Syncope: No EENMT Bleeding gums: No Dental pain: No Ear drainage: No Ear pain: No Facial pain: No Hearing loss: No Hoarseness: No Mouth lesions: No Nasal congestion: No Nasal discharge: No Nosebleeds: No Other EENMT: No Postnasal drainage: No Sore_throat: No Tinnitus: No Vision Changes: No Gastrointestinal Abdominal pain: No Constipation: No Diarrhea: No Dysphagia: No Fecal incontinence: No Heartburn: No Nausea: No Other GI: No Stools, black/bloody: No Vomiting: No Vomiting blood: No Genitourinary Decreased urine output: No Dysuria: No Frequency: No Genital irritation: No Hematuria: No Hesitancy: No Impaired urge sensation: No Other Genitourinary: No Polyuria: No Sexual dysfunction: No Urgency: No Urinary Incontinence: No Vaginal discharge: No Hematologic/Lymphatic Musculoskeletal Neurological Psychiatric Respiratory Apnea: No Cough: No Hemoptysis: No Other Respiratory: No Shortness_of_breath: No Snoring: No Sputum production: No Wheezing: No Skin Physical Exam Vitals & Measurements T: 36.8 ?C (Temporal Artery) WT: 56.2 kg WT: 56.2 kg (Dosing) Additional Vitals No qualifying data available. Overall:[Communication mode is clear, normal] [Appearance- no acute distress, appears stated age and is well nourished] Assistive device:[ none] Head:[normocephalic, no trauma, lesions or asymmetry] Ocular appearance:[ Conjuctiva- clear and bright, no drainage or infection. EOM intact] Ears:[ external ear- normal shape, no signs of infection, mass, lesion or asymmetry bilaterally. Ear canal is healthy, free from wax and infection, right. Left has purulence] [Eardrum-right drum is dull, left has patent PET iwth infection noted] [Middle ear- infection noted bilat] Mental Status:[Alert and oriented x3][Mood and affect normal][Gait is normal]. Assessment/Plan 1. Otorrhea of left ear Pt has current left ear drainage. Pt advised PET is in place and currently is infected. Plan to treat with drops. Recheck in 2 weeks to ensure improvement 2. Chronic serous otitis media, bilateral Pt has hearing loss right side. Pt advised,wax is not the issue. ME fluid is present and pt likely needs PET replaced. She states last attempt was very painful. Will discuss further at next appt Orders: ciprofloxacin-dexametha sone otic, 3 drops, Ear-Left, BID, X 10 days, # 7.5 mL, 0 Refill(s), 04/08/22 10:26:00 EST, Pharmacy: [id number] Medical Decision Making Chronic conditions NOT treated during this visit that affected my overall medical decision making: [] Treatment plans discussed but not opted for at this time: [] Prescribed medication that requires intensive monitoring for toxicity: [] I have reviewed the patient?s medication list for medication interactions/contraindi cations and/or for upcoming procedures: [yes or no] Time Spent with the Patient I have personally spent [28] minutes on this date, directly related to today's patient visit, including pre and post visit work, for this date of service. Time listed does not include time spent on separately billable services. Problem List/Past Medical History Ongoing Acid reflux Sussy disease Historical No qualifying data Procedure/Surgical History appendectomy bowel scar tissue removed hysterectomy Medications Ciprodex 0.3%-0.1% otic suspension, 3 drops, Ear-Left, BID clopidogrel 75 mg oral tablet levothyroxine 50 mcg (0.05 mg) oral capsule, 50 mcg= 1 caps, Oral, Daily levothyroxine 75 mcg (0.075 mg) oral tablet LORazepam 0.5 mg oral tablet, 0.5 mg= 1 tabs, Oral, TID, PRN LORazepam 1 mg oral tablet PriLOSEC 20 mg oral delayed release capsule, 20 mg= 1 caps, Oral, Daily Tylenol 325 mg oral capsule, 650 mg= 2 caps, Oral, q4hr, PRN Allergies Avelox (throat swell) aspirin (Tachycardia) penicillin (pt states she felt off) Social History Tobacco 5-9 cigarettes (between 1/4 to 1/2 pack)/day in last 30 days Use:. Cigarettes, 10 per day. 20 year(s). Family History Diabetes mellitus: Mother, Grandchild and Sibling. Heart attack: Father. Electronically signed by ___ Jayla Clark PA-C 04/01/22 12:51 EST Normal [facility] Audiology Office/Clinic Note on 03-11-2022 Audiology Office/Clinic Note Patient was seen today for hearing aid recheck after attempted cerumen removal from the right ear. She notes that her right-sided hearing is poorer than her left, which is consistent with today's tympanometry results of a flat tympanogram for the right ear with normal ear canal volume, suggesting middle ear dysfunction. Patient was scheduled for ear cleaning and evaluation with Jayla Clark PA-C. Hearing evaluation was not completed today, due to abnormal tympanometry results. Hearing aids were cleaned, and wax traps and domes were replaced. Listening check good. No further concerns. Plan: Following ear cleaning and medical management of right ear, return for updated hearing evaluation and programming of hearing aids. $50 paid in full today for hearing aid recheck. Electronically signed by ___ Angelica Sommer 03/11/22 11:20 EST Normal [facility] Audiology Office/Clinic Note HISTORY: Patient was seen today for updated audiological assessment. 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 At patient's most recent appointment with Jayla Clark PA-C, right tube had extruded and middle ear effusion was present; therefore, placement of new PE tube was recommended. Patient was unable to undergo this procedure in the office and would require sedation. She chose not to schedule PE tube placement and was instructed to contact the clinic to schedule this procedure under sedation. PE tube was never placed and now patient returns with complaint of difficulty hearing from the right ear. She is interested in having her hearing aids cleaned and checked, as well. AUDIOMETRICS: Otoscopy suggested near-occluding cerumen in the right ear and minimal cerumen in the left ear. Cerumen removal was attempted for the right ear using lighted curette; however, patient experienced significant discomfort and cerumen was not able to be removed successfully. Extruded PE tube was visible encased in the cerumen. After attempted cerumen removal, right TM was more visible than upon initial otoscopy; therefore, tympanometry was completed. Tympanometry still revealed flat tympanogram with normal ear canal volume for the right ear, even with TM visible and not completely occluded with cerumen, suggesting middle ear dysfunction. Hyper-complaince for the left ear. Additional testing was not completed today, due to abnormal tympanometry results. SUMMARY: Tympanometry results suggest middle ear dysfunction of the right ear; therefore, referral to ENT is recommended, for cerumen removal and medical management of middle ear dysfunction. RECOMMENDATIONS: 1. Referral to ENT for ear cleaning and medical management of right-sided middle ear dysfunction. 2. Return for hearing evaluation and hearing aid recheck following medical management of right ear. Electronically signed by ___ Angelica Sommer 03/11/22 11:14 EST Normal [facility] Otolaryngology Office/Clinic Noteon 09-30-2021 Otolaryngology Office/Clinic Note Chief Complaint Pt states I am here for f/u on rt ear. History of Present Illness History of Present Illness HPI: Pt is a 76 year old women in the office for a follow up on rt ear. Pt wants to get her tube in rt ear looked at. Pt denies any symptoms. SHe feels her right ear may be becoming plugged. She has known ME issues with PET placement and fluid in the past. PReviously unresponsive to medication Review of Systems General Adult ROS Fatigue: No Appetite change: No Other General: No Weakness: No Weight gain: No Weight Loss: No Cardiovascular Chest pain/pressure: No Claudication: No Edema: No Orthopnea: No Other Cardiovascular: No Palpitations: No Syncope: No EENMT Bleeding gums: No Dental pain: No Ear drainage: No Ear pain: No Facial pain: No Hearing loss: No Hoarseness: No Mouth lesions: No Nasal congestion: No Nasal discharge: No Nosebleeds: No Other EENMT: No Postnasal drainage: No Sore_throat: No Tinnitus: No Vision Changes: No Gastrointestinal Abdominal pain: No Constipation: No Diarrhea: No Dysphagia: No Fecal incontinence: No Heartburn: No Nausea: No Other GI: No Stools, black/bloody: No Vomiting: No Vomiting blood: No Genitourinary Decreased urine output: No Dysuria: No Frequency: No Genital irritation: No Hematuria: No Hesitancy: No Impaired urge sensation: No Other Genitourinary: No Polyuria: No Sexual dysfunction: No Urgency: No Urinary Incontinence: No Vaginal discharge: No Hematologic/Lymphatic Musculoskeletal Neurological Psychiatric Respiratory Apnea: No Cough: No Hemoptysis: No Other Respiratory: No Shortness_of_breath: No Snoring: No Sputum production: No Wheezing: No Skin Physical Exam Vitals & Measurements T: 36.9 ?C (Temporal Artery) HT: 161.4 cm WT: 56.2 kg WT: 56.2 kg (Dosing) BMI: 21.57 Additional Vitals No qualifying data available. Overall:[Communication mode is clear, normal] [Appearance- no acute distress, appears stated age and is well nourished] Assistive device:[ none] Head:[normocephalic, no trauma, lesions or asymmetry] Ocular appearance:[ Conjuctiva- clear and bright, no drainage or infection. EOM intact] Ears:[ external ear- normal shape, no signs of infection, mass, lesion or asymmetry bilaterally. Ear canal is healthy, free from wax and infection, bilaterally]Old Right PET in canal, this was removed with microinstrumentation [Eardrum-healthy, no sign of infection, trauma, perforation or infection, left. Right is dull] [Middle ear- healthy, no obvious fluid present or infection, left. right has ME fluid present] Nose:[ External- healthy, no sign of asymmetry, lesion or infection] Septum:[ Midline, no sign of perforation, infection or deviation] Turbinates:[ normal, no hypertrophy, mass or polyp] Nasal passages:[ clear, no infection, drainage or obstruction] Oral cavity:[ Normal, tongue healthy no mass, lesion or infection. Soft and hard palate normal. Bimanual palpation is normal. Mucosa moist, free from infection][ Benign gingiva, good dental hygiene][Tonsil size is normal, no asymmetry, mass or lesionn][oropharynx- clear, no evidence of post nasal drip, cobblestoning or other abnormalities] Mental Status:[Alert and oriented x3][Mood and affect normal][Gait is normal]. Assessment/Plan 1. Chronic serous otitis media, right ear Pt has chronic issues with right ear and ME fluid presence in the past with PET placement in the past.Symptoms are recurring at this point, exam confirms ME fluid. Suggest replacement of PET for fluid removal. pt was intolerant to have this done in the office and would likely needed sedated. She wishes to consider this and will let office know if wanting to proceed Medical Decision Making Chronic conditions NOT treated during this visit that affected my overall medical decision making: [] Treatment plans discussed but not opted for at this time: [] Prescribed medication that requires intensive monitoring for toxicity: [] I have reviewed the patient?s medication list for medication interactions/contraindi cations and/or for upcoming procedures: [yes or no] Time Spent with the Patient I have personally spent [22] minutes on this date, directly related to today's patient visit, including pre and post visit work, for this date of service. Time listed does not include time spent on separately billable services. Problem List/Past Medical History Ongoing Acid reflux Sussy disease Historical No qualifying data Procedure/Surgical History appendectomy bowel scar tissue removed hysterectomy Medications levothyroxine 50 mcg (0.05 mg) oral capsule, 50 mcg= 1 caps, Oral, Daily LORazepam 0.5 mg oral tablet, 0.5 mg= 1 tabs, Oral, TID, PRN PriLOSEC 20 mg oral delayed release capsule, 20 mg= 1 caps, Oral, Daily Tylenol 325 mg oral capsule, 650 mg= 2 caps, Oral, q4hr, PRN Allergies Avelox (throat swell) aspirin (Tachyc (more content not included)... Normal [facility] Covid-19 PCR (CVDTBH)on 07-30 SARS-CoV-2 (COVID-19) RNA ISABELA+probe Ql (Unsp spec) Detected Critically abnormal NOT DETECTED The [facility] Comment on above: Result Comment: This test is not yet approved or cleared by the [place] FDA. When there are no FDA-approved or cleared tests available, and other criteria are met, FDA can make tests available under an emergency access mechanism called an Emergency Use Authorization (EUA). The EUA for this test is supported by the [place] C[employer] of Health and Human Service's declaration that circumstances exist to justify the emergency use of in vitro diagnostics for the detection and/or diagnosis of the virus that causes COVID-19. This EUA will remain in effect for the duration of the COVID-19 declaration justifying emergency of IVDs, unless it is terminated or revoked by the FDA (after which the test may no longer be used). Performed By: #### C VDTB #### [facility] [address] [place] [address] Dr. Dirk Patton ER URINE PROFILEon 2 Bilirubin Ql (U) Negative Normal NEGATIVE [facility] Comment on above: Performed By: #### E RUR #### [facility] [address] [place] [address] Dr. Dirk Patton Clarity (U) CLEAR Normal CLEAR [facility] Comment on above: Performed By: #### E RUR #### [facility] [address] [place] [address] Dr. Dirk Patton Color (U) YELLOW Normal YELLOW [facility] Comment on above: Performed By: #### E RUR #### [facility] [address] [place] [address] Dr. Dirk JARRELLAraceli A micrscopic examination will be performed if indicated. Normal [facility] Comment on above: Performed By: #### E RUR #### [facility] [address] [place] [address] Dr. Dirk Patton Glucose Ql (U) Negative Normal NEGATIVE [facility] Comment on above: Performed By: #### E RUR #### [facility] [address] [place] [address] Dr. Dirk Patton Hemoglobin Ql (U) Negative Normal NEGATIVE [facility] Comment on above: Performed By: #### E RUR #### [facility] [address] [place] [address] Dr. Dirk Patton Ketones Ql (U) Negative Normal NEGATIVE [facility] Comment on above: Performed By: #### E RUR #### [facility] [address] [place] [address] Dr. Dirk Patton LEUKOCYTES Negative Normal NEGATIVE [facility] Comment on above: Performed By: #### E RUR #### [facility] [address] [place] [address] Dr. Dirk Patton Nitrite Ql (U) Negative Normal NEGATIVE [facility] Comment on above: Performed By: #### E RUR #### [facility] [address] [place] [address] Dr. Dirk Patton pH (U) 6.0 [pH] Normal 5-9 [facility] Comment on above: Performed By: #### E RUR #### [facility] [address] [place] [address] Dr. Dirk Patton SPEC GRAVITY 1.015 Normal 1.005-<=1.02 5 [facility] Comment on above: Performed By: #### E RUR #### [facility] [address] [place] [address] Dr. Dirk Patton UA PROTEIN Negative Normal NEGATIVE/ TRACE [facility] Comment on above: Performed By: #### E RUR #### [facility] [address] [place] [address] Dr. Dirk Patton UR MICRO IND NOT INDICATED Normal [facility] Comment on above: Performed By: #### E RUR #### [facility] [address] [place] [address] Dr. Dirk Patton Urobilinogen Qn (U) 0.2 {Jairo'U}/dL Normal 0.2 - 1.0 [facility] Comment on above: Performed By: #### E RUR #### [facility] [address] [place] [address] Dr. Dirk Patton XR LSPINE 2_3 VIEWSon 2021 XR LSPINE 2_3 VIEWS EXAM: XR LSPINE 2_3 VIEWS INDICATION: Pain COMPARISON: None. TECHNIQUE: Lumbar spine - frontal and lateral views FINDINGS: Diffuse osteopenia. The lumbar spine is normally aligned. No vertebral compression fracture. The disc spaces are preserved. Mild to moderate facet joint degenerative changes, worse in the lower lumbar spine. Mild degenerative changes of the sacroiliac joints. IMPRESSION: 1. No acute lumbar spine fracture or malalignment. 2. 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 Electronically authenticated by: KRYSTAL WEST Date: 2021-08-20 08:50 Normal [facility] Otolaryngology Office/Clinic Noteon 07-01-2021 Otolaryngology Office/Clinic Note Chief Complaint Pt states Im here for a follow up History of Present Illness History of Present Illness HPI: 76yr old Female presents to clinic for an evaluation of her right ear. Pt states that this is just a follow up and her ear just needs to be checked.NO further drainage Review of Systems General Adult ROS Fatigue: No Weakness: No Weight gain: No Weight Loss: No Cardiovascular EENMT Ear drainage: No Ear pain: No Hearing loss: No Hoarseness: No Nasal congestion: No Nasal discharge: No Nosebleeds: No Postnasal drainage: No Sore_throat: No Tinnitus: No Gastrointestinal Genitourinary Hematologic/Lymphatic Musculoskeletal Neurological Psychiatric Respiratory Cough: No Shortness_of_breath: No Skin Physical Exam Vitals & Measurements T: 36.4 ?C (Temporal Artery) HT: 157 cm WT: 57.2 kg WT: 57.2 kg (Dosing) BMI: 23.21 Additional Vitals No qualifying data available. Overall:[Communication mode is clear, normal] [Appearance- no acute distress, appears stated age and is well nourished] Assistive device:[ none] Head:[normocephalic, no trauma, lesions or asymmetry] Ocular appearance:[ Conjuctiva- clear and bright, no drainage or infection. EOM intact] Ears:[ external ear- normal shape, no signs of infection, mass, lesion or asymmetry bilaterally. Ear canal is healthy, free from wax and infection, bilaterally] [Eardrum-healthy, no sign of infection, trauma, perforation or infection, left. Right drum is retracted with PET extruding] [Middle ear- healthy, no obvious fluid present or infection] Mental Status:[Alert and oriented x3][Mood and affect normal][Gait is normal]. Assessment/Plan 1. Dysfunction of both eustachian tubes Pt has resolving ET issues, PET extruding and infection cleared. Plan to monitor for recurrence.Recheck in 3 m Medical Decision Making Chronic conditions NOT treated during this visit that affected my overall medical decision making: [] Treatment plans discussed but not opted for at this time: [] Prescribed medication that requires intensive monitoring for toxicity: [] I have reviewed the patient?s medication list for medication interactions/contraindi cations and/or for upcoming procedures: [yes or no] Time Spent with the Patient I have personally spent [15] minutes on this date, directly related to today's patient visit, including pre and post visit work, for this date of service. Time listed does not include time spent on separately billable services. Problem List/Past Medical History Ongoing Acid reflux Sussy disease Historical No qualifying data Procedure/Surgical History appendectomy bowel scar tissue removed hysterectomy Medications levothyroxine 50 mcg (0.05 mg) oral capsule, 50 mcg= 1 caps, Oral, Daily LORazepam 0.5 mg oral tablet, 0.5 mg= 1 tabs, Oral, TID, PRN PriLOSEC 20 mg oral delayed release capsule, 20 mg= 1 caps, Oral, Daily Tylenol 325 mg oral capsule, 650 mg= 2 caps, Oral, q4hr, PRN Allergies Avelox (throat swell) aspirin (Tachycardia) Social History Tobacco 5-9 cigarettes (between 1/4 to 1/2 pack)/day in last 30 days Use:. Cigarettes, 10 per day. 20 year(s). Family History Diabetes mellitus: Mother, Grandchild and Sibling. Heart attack: Father. Electronically signed by ___ Jayla Clark PA-C 07/02/21 09:20 EDT Normal [facility] Otolaryngology Office/Clinic Noteon 06-17-2021 Otolaryngology Office/Clinic Note Chief Complaint I am in for rt ear issues. History of Present Illness History of Present Illness HPI: Pt is in for rt ear pain & drainage. Pt states she had drainage about 1 wk ago for 1 1/2 days. She complains of hearing loss and occasional ear pain. She has hx of ear issues with PET placement in the past. Hearing is reduced and there is an odor. No other associated symptoms noted Review of Systems General Adult ROS Fatigue: No Appetite change: No Other General: No Weakness: No Weight gain: No Weight Loss: No Cardiovascular Chest pain/pressure: No Claudication: No Edema: No Orthopnea: No Other Cardiovascular: No Palpitations: No Syncope: No EENMT Bleeding gums: No Dental pain: No Ear drainage: No Ear pain: Yes Facial pain: No Hearing loss: Yes Hoarseness: No Mouth lesions: No Nasal congestion: No Nasal discharge: No Nosebleeds: No Other EENMT: No Postnasal drainage: No Sore_throat: No Tinnitus: No Vision Changes: No Gastrointestinal Genitourinary Hematologic/Lymphatic Musculoskeletal Neurological Psychiatric Respiratory Apnea: No Cough: No Hemoptysis: No Other Respiratory: No Shortness_of_breath: No Snoring: No Sputum production: No Wheezing: No Skin Physical Exam Vitals & Measurements T: 36.9 ?C (Temporal Artery) HT: 155.5 cm WT: 57.3 kg WT: 57.3 kg (Dosing) BMI: 23.7 Additional Vitals No qualifying data available. Overall:[Communication mode is clear, normal] [Appearance- no acute distress, appears stated age and is well nourished] Assistive device:[ none] Head:[normocephalic, no trauma, lesions or asymmetry] Ocular appearance:[ Conjuctiva- clear and bright, no drainage or infection. EOM intact] Ears:[ external ear- normal shape, no signs of infection, mass, lesion or asymmetry bilaterally. Ear canal is healthy, free from wax and infection,left. Right has drainage] [Eardrum-healthy, no sign of infection, trauma, perforation or infection, left. right unable to be viewed] [Middle ear- healthy, no obvious fluid present or infection, left. right unable to be viewed] Nose:[ External- healthy, no sign of asymmetry, lesion or infection] Septum:[ Midline, no sign of perforation, infection or deviation] Turbinates:[ normal, no hypertrophy, mass or polyp] Nasal passages:[ clear, no infection, drainage or obstruction] Oral cavity:[ Normal, tongue healthy no mass, lesion or infection. Soft and hard palate normal. Bimanual palpation is normal. Mucosa moist, free from infection][ Benign gingiva, good dental hygiene][Tonsil size is normal, no asymmetry, mass or lesionn][oropharynx- clear, no evidence of post nasal drip, cobblestoning or other abnormalities] Nasopharynx:[ unable to view with mirror due to gagging] Larynx:[ Unable to view with mirror due to gagging] Neck:[ Salivary gland exam is normal, no enlargement or tenderness. No lymph node enlargement. TMJ exam is normal, no tenderness noted][ Thyroid exam is normal, no masses or tenderness] Mental Status:[Alert and oriented x3][Mood and affect normal][Gait is normal]. Assessment/Plan 1. Otorrhea of right ear Pt has recent onset of draining right ear with hx of PET placement in the past. Unable to determine if still in place due to level of inflammation. Plan to treat with drops and recheck in several weeks to identify improvement. Keep ear dry and avoid qtips Orders: tobramycin-dexamethason e ophthalmic, 3 drops, Ear-Right, Daily, X 10 days, # 5 mL, 0 Refill(s), 06/27/21 13:12:00 EDT, [facility]acy: [facility] Medical Decision Making Chronic conditions NOT treated during this visit that affected my overall medical decision making: [] Treatment plans discussed but not opted for at this time: [] Prescribed medication that requires intensive monitoring for toxicity: [] I have reviewed the patient?s medication list for medication interactions/contraindi cations and/or for upcoming procedures: [yes or no] Time Spent with the Patient I have personally spent [30] minutes on this date, directly related to today's patient visit, including pre and post visit work, for this date of service. Time listed does not include time spent on separately billable services. Problem List/Past Medical History Ongoing Acid reflux Sussy disease Historical No qualifying data Procedure/Surgical History appendectomy bowel scar tissue removed hysterectomy Medications levothyroxine 50 mcg (0.05 mg) oral capsule, 50 mcg= 1 caps, Oral, Daily LORazepam 0.5 mg oral tablet, 0.5 mg= 1 tabs, Oral, TID, PRN PriLOSEC 20 mg oral delayed release capsule, 20 mg= 1 caps, Oral, Daily Tobradex 0.3%-0.1% ophthalmic suspension, 3 drops, Ear-Right, Daily Tylenol 325 mg oral capsule, 650 mg= 2 caps, Oral, q4hr, PRN Allergies Avelox (throat swell) aspirin (Tachycardia) Social History Tobacco 5-9 cigarettes (between 1/4 to 1/2 pack)/day in last 30 days Use:. Cigarettes, 10 per day. 20 year( (more content not included)... Normal [facility] US carotid doppler BIon - US carotid doppler BI [facility] [place] [address] Ultrasound Report Signed Patient: Daphne Fermin MR#: [id number] 6 : 1945 Acct:[id number] Age/Sex: 75 / F ADM Date: 05/22/20 Loc: [facility] Room: Type: [facility] Attending Dr: Montana Mora MD Ordering Provider: Montana Mora MD Date of Service: 05/22/20 US/US carotid doppler BI: I65.23 Copies to: Montana Mora MD CAROTID DUPLEX INDICATION: Carotid bruit PROCEDURE: Color-flow duplex scanning is used to interrogate the extracranial carotid arterial system, as well as both vertebral arteries. The proximal right internal carotid artery shows a highest peak systolic velocity of 65.1 cm/s with an end-diastolic velocity of 24 cm/s . The mid internal carotid artery measures 75.6 cm/s peak systolic with an end-diastolic velocity of 31.7 cm/s . The distal segment measures 75.6 cm/s peak systolic with an end diastolic velocity of 29.3 cm/s . The velocities of the right common carotid artery are 73.3 cm/s peak systolic and 13.5 cm/s end- diastolic proximally and 75.6 cm/s peak systolic and 25.8 cm/s end-diastolic distally. The peak systolic velocity ratio of the internal to the common carotid artery is 1 . The right external carotid artery measures 117 cm/s peak systolic. The right vertebral artery is patent at 43.4 cm/s peak systolic and with antegrade flow. The proximal left internal carotid artery shows a highest peak systolic velocity of 75 cm/s with an end-diastolic velocity of 29.3 cm/s . The mid internal carotid artery measures 88.8 cm/s peak systolic with an end-diastolic velocity of 34.6 cm/s . The velocities of the left common carotid artery are 78 cm/s peak systolic and 25.8 cm/s end-diastolic proximally and 65.7 cm/s peak systolic and 28.1 cm/s end-diastolic distally. The peak systolic velocity ratio of the internal to the common carotid artery is 1.14 . The left external carotid artery measures 78 cm/s peak systolic. The left vertebral artery is patent at 47.5 cm/s peak systolic with antegrade flow. US/US carotid doppler BI IMPRESSION: NO HEMODYNAMICALLY SIGNIFICANT STENOSIS OF EITHER EXTRACRANIAL INTERNAL CAROTID ARTERY. BOTH VERTEBRAL ARTERIES ARE PATENT WITH ANTEGRADE FLOW. Impression dictated by: Montana Mora MD05/23/2020 4:31 PM Dictation Location: [place] [address] Tech: Dorie Rossi Transcribed By: [facility] 05/23/20 163 Dictated By: Montana Mora MD 05/23/20 1630 Signed By: 05/23/20 163 [facility] Cult,Genitalon 05-18-2020 Cult,Genital Specimen Description .VAGINA Special Requests NOT REPORTED Culture NORMAL URO-GENITAL KARLENE NEGATIVE FOR NEISSERIA GONORRHOEAE NEGATIVE FOR BETA HEMOLYTIC STREPTOCOCCI Report Status FINAL 05/18/2020 [facility] Comment on above: Performed By: #### G EC #### [facility] [address] [place] [address] [phone] Landscaping Supervisor: Tim Blair MD [facility] [address] [place] [address] Landscaping Supervisor: Ender Thomas MD Cult,Urineon 05-17-2020 Cult,Urine Specimen Description .CLEAN CATCH URINE Special Requests NOT REPORTED Culture NO GROWTH Report Status FINAL 05/16/2020 [facility] Comment on above: Performed By: #### U RC #### [facility] [address] [place] [address] [phone] Landscaping Supervisor: Tim Blair MD [facility] [address] [place] [address] Landscaping Supervisor: Ender Thomas MD Chlamydia/GC,DNA Ampon 05-16 Chlamydia Probe Negative Normal NEG [facility] Comment on above: Result Comment: CHLA MYDIA TRACHOMATIS DNA not detected by nucleic acid amplification. This test is intended for medical purposes only and is not valid for the evaluation of suspected sexual abuse or for other forensic purposes. In certain contexts, culture may be required to meet applicable laws and regulations for diagnosis of C. trachomatis and N. gonorrhoeae infections. Per 2014 CDC recommendations, this test does not include confirmation of positive results by an alternative nucleic acid target. Performed By: #### S WCGP #### [address] [phone] Landscaping Supervisor: Tim Blair MD Gonorrhea Probe Negative Normal [place] Comment on above: Result Comment: NEIS SERIA GONORRHOEAE DNA not detected by nucleic acid amplification. This test is intended for medical purposes only and is not valid for the evaluation of suspected sexual abuse or for other forensic purposes. In certain contexts, culture may be required to meet applicable laws and regulations for diagnosis of C. trachomatis and N. gonorrhoeae infections. Per 2014 CDC recommendations, this test does not include confirmation of positive results by an alternative nucleic acid target. Performed By: #### S WCGP #### [address] [phone] Landscaping Supervisor: Tim Blair MD Microscopic Urinalysison Amorphous, UA NOT REPORTED None [facility] Work Phone: Bacteria, UA 1+ Abnormal None [facility] Work Phone: Casts UA NOT REPORTED /LPF [facility] Work Phone: Crystals, UA NOT REPORTED None /HPF [employer] [facility] Work Phone: Epithelial Cells UA 0 TO 2 [facility] Work Phone: Interpretation and review of laboratory results Abnormal [facility] Work Phone: Mucus, UA NOT REPORTED None [facility] Work Phone: Other Observations UA NOT REPORTED NOT REQ. [facility] Work Phone: RBC (U) [#/Vol] None [employer] [facility] Work Phone: Renal Epithelial, UA NOT REPORTED 0 /HPF [facility] [employer] Work Phone: Trichomonas, UA NOT REPORTED None [facility] Work Phone: WBC, UA 10 TO 20 [facility] Work Phone: Yeast, UA NOT REPORTED None [facility] Work Phone: - [facility] Work Phone: UA w/Reflex Cultureon 2020 Acetoacetic Acid,Ur Negative Normal NEG [facility] Comment on above: Performed By: #### U MICAO, UAX #### [facility] [address] [place] [address] Dr. [place], [place] [phone] Landscaping Supervisor: Ender Thomas MD Bilirubin, SemiQt,Ur Negative Normal NEG [facility] Comment on above: Performed By: #### U MICAO, UAX #### [facility] [address] [place] [address] Dr. [place], [place] [phone] Landscaping Supervisor: Ender Thomas MD Color (U) YELLOW Normal YEL [facility] Comment on above: Performed By: #### U MICAO, UAX #### [facility] [address] [place] [address] [place] [address] Landscaping Supervisor: Ender Thomas MD Glucose Ql (U) Negative Normal NEG [facility] Comment on above: Performed By: #### U MICAO, UAX #### [facility] [address] [place], [place] [phone] Landscaping Supervisor: Ender Thomas MD Hemoglobin, Ur Negative Normal NEG [facility] Comment on above: Performed By: #### U MICAO, UAX #### [facility] [address] [place], [place] [phone] Landscaping Supervisor: Ender Thomas MD Leukocyte esterase Test strip Ql (U) MODERATE Abnormal NEG [facility] Comment on above: Performed By: #### U MICAO, UAX #### [facility] [address] [place], [place] [phone] Landscaping Supervisor: Ender Thomas MD Nitrite,Ur Negative Normal NEG [facility] Comment on above: Performed By: #### U MICAO, UAX #### [facility] [address] [place] [address] Dr. [place], [place] [phone] Landscaping Supervisor: Ender Thomas MD pH (U) 6.0 [pH] Normal 5.0-9.[address] [facility] Comment on above: Performed By: #### U MICAO, UAX #### [facility] [address] [place] [address] Dr. [place], [place] [phone] Landscaping Supervisor: Ender Thomas MD Protein Ql (U) Negative Normal NEG [facility] in Hospital Comment on above: Performed By: #### U MICAO, UAX #### [facility] [address] [place] [address] Dr. [place], [place] [phone] Landscaping Supervisor: Ender Thomas MD Specific gravity (U) [Rel density] 1.020 Normal 1.010-1.[address] [facility] Comment on above: Performed By: #### U MICAO, UAX #### [facility] [address] [place] [address] Dr. [place], [place] [phone] Landscaping Supervisor: Ender Thomas MD Turbidity CLEAR Normal CLEAR [facility] Comment on above: Performed By: #### U MICAO, UAX #### [facility] [address] [place] [address] Dr. [place], [place] [phone] Landscaping Supervisor: Ender Thomas MD Urobilinogen,Ur Normal Normal NORM [facility] Comment on above: Performed By: #### U MICAO, UAX #### [facility] [address] [place] [address] Landscaping Supervisor: Ender Thomas MD Comment NOT REPORTED Normal [facility] Comment on above: Performed By: #### U MICAO, UAX #### [facility] [address] [place] [address] Landscaping Supervisor: Ender Thomas MD Urinalysis Reflex to Culture on 05-15-2020 Bilirubin Urine Negative NEGATIVE [facility] Work Phone: Color, UA YELLOW YELLOW [facility] [employer] Work Phone: Glucose, Ur Negative NEGATIVE [facility] Work Phone: Interpretation and review of laboratory results Abnormal [facility] [employer] Work Phone: Ketones Ql (U) Negative NEGATIVE [facility] Work Phone: Leukocyte esterase Test strip Ql (U) MODERATE Abnormal NEGATIVE [facility] Phone: Nitrite, Urine Negative NEGATIVE [facility] Work Phone: pH, UA 6.0 [facility] Work Phone: Protein (U) [Mass/Vol] Negative NEGATIVE [facility] [employer] Phone: Specific [place], UA 1.020 [facility] Work Phone: Turbidity UA CLEAR CLEAR [facility] Phone: Urinalysis Comments NOT REPORTED [facility] Phone: Urine Hgb Negative NEGATIVE [facility] [employer] Work Phone: Urobilinogen, Urine Normal Normal [facility] Work Phone: Urinalysis,Microon 1 ----- Normal [facility] Comment on above: Performed By: #### U MICAO, UAX #### [facility] [address] [place], [place] [phone] Landscaping Supervisor: Ender Thomas MD Bacteria LM.HPF (Urine sed) [#/Area] 1+ Abnormal [facility] Comment on above: Performed By: #### U MICAO, UAX #### [facility] [address] [place], [place] [phone] Landscaping Supervisor: Ender Thomas MD Epithelial cells LM.HPF (Urine sed) [#/Area] 0 TO 2 Normal 0-[address] [facility] Comment on above: Performed By: #### U MICAO, UAX #### [address] [place], [place] [phone] Landscaping Supervisor: Ender Thomas MD RBC (U) [#/Vol] None Normal 0-2 [facility] Comment on above: Performed By: #### U MICAO, UAX #### [address] [place], [place] [phone] Landscaping Supervisor: Ender Thomas MD WBC (U) [#/Vol] 10 TO 20 Normal 0-5 [facility] Comment on above: Performed By: #### U MICAO, UAX #### [address] [place], [place] [phone] Landscaping Supervisor: Ender Thomas MD Amorphous sediment LM Ql (Urine sed) NOT REPORTED Normal [facility] Comment on above: Performed By: #### U MICAO, UAX #### [facility] [address] [place], [place] [phone] Landscaping Supervisor: Ender Thomas MD Casts LM.LPF (Urine sed) [#/Area] NOT REPORTED Normal [facility] Comment on above: Performed By: #### U MICAO, UAX #### [facility] [address] [place], [place] [phone] Landscaping Supervisor: Ender Thomas MD Crystals LM Nom (Urine sed) NOT REPORTED Normal NONE [facility] Comment on above: Performed By: #### U OSMELO, UAX #### [facility] [address] [place], [place] [phone] Landscaping Supervisor: Ender Thomas MD Epithelial, Renal NOT REPORTED Normal [address] [facility] Comment on above: Performed By: #### U MICAO, UAX #### [facility] [address] [place] [address] Landscaping Supervisor: Ender Thomas MD Mucus Strands NOT REPORTED Normal [facility] Comment on above: Performed By: #### U OSMELO, UAX #### [facility] [address] [place] [address] Landscaping Supervisor: Ender Thomas MD Other Observations NOT REPORTED Normal NREQ [facility] Comment on above: Performed By: #### U OSMELO, UAX #### [facility] [address] [place] [address] Landscaping Supervisor: Ender Thomas MD Trichomonas NOT REPORTED Normal [facility] Comment on above: Performed By: #### U OSMELO, UAX #### [facility] [address] [place], [place] [phone] Landscaping Supervisor: Ender Thomas MD Yeast LM Ql (Urine sed) NOT REPORTED Normal [facility] Comment on above: Performed By: #### U MICAO, UAX #### [facility] [address] [place], [place] [phone] Landscaping Supervisor: Ender Thomas MD US ankle/arm indiceson 04-03 US ankle/arm indices [facility] Main [address] [address] Ultrasound Report Signed Patient: Daphne Fermin MR#: [id number] 6 : 1945 Acct:[id number] Age/Sex: 74 / F ADM Date: 04/03/20 Loc: Room: Type: [facility] Attending Dr: Montana Mora MD Ordering Provider: Montana Mora MD Date of Service: 04/03/20 US/US ankle/arm indices: I70.213 Copies to: Montana Mora MD Bilateral lower extremity arterial study at rest INDICATIONS: Leg pain FINDINGS: Right leg: Right arm brachial pressure is 1 17 mmHg. Ankle pressures 86 mmHg. The right lower extremity GENEVIEVE is 0.72. Biphasic waveforms are identified distally. Left leg: Left arm blood pressure is 1 20 mmHg. Left ankle pressure is 1 16 mmHg. The left lower extremity GENEVIEVE is 0.97. Multiphasic waveforms are identified distally. US/US ankle/arm indices Impression: Right leg: Moderate peripheral artery disease present. Left leg: Mild peripheral artery disease present. Impression dictated by: Montana Mora MD04/03/2020 1:38 PM Dictation Location: [place] [address] Tech: Daphne Hernandez Transcribed By: HAIDER 04/03/20 1338 Dictated By: Montana Mora MD 04/03/20 1330 Signed By: 04/03/20 1338 [facility] Cult,Genitalon 12-20-2019 Cult,Genital Specimen Description .VAGINA Special Requests NOT REPORTED Culture STREPTOCOCCI, BETA HEMOLYTIC GROUP B MODERATE GROWTH NORMAL URO-GENITAL KARLENE NEGATIVE FOR NEISSERIA GONORRHOEAE Report Status FINAL 12/20/[address] [facility] Comment on above: Performed By: #### G EC #### [facility] [employer] [address] [place] [address] Landscaping Supervisor: Tim Blair MD [facility] [address] [place] [address] Landscaping Supervisor: Juarez Skinner MD Vital Signs Date Time Vital Sign Value Performing Clinician Facility 03-08-2023 16:15-0500 Body height 158.75 cm Pao Harrison Other Variable Other 03-08-2023 16:15-0500 Body mass index (BMI) [Ratio] 23.83 kg/m2 Pao Harrison Other Variable Other 03-08-2023 16:15-0500 Body temperature 98.3 [degF] Pao Harrison Other Variable Other 03-08-2023 16:15-0500 Body weight 60.06 kg Pao Harrison Other Variable Other 03-08-2023 16:15-0500 Respiratory rate 18 /min Pao Harrison Other Variable Other 03-08-2023 16:15-0500 SaO2% (BldA) [Mass fraction] 96 % Pao Harrison Other Variable Other 12-02-2022 14:45-0400 Body height 158.75 cm Reyna Santos Other Variable Other 12-02-2022 14:45-0400 Body mass index (BMI) [Ratio] 23.9 kg/m2 Reyna Santos Other Variable Other 12-02-2022 14:45-0400 Body temperature 98.1 [degF] Reyna Santos Other Variable Other 12-02-2022 14:45-0400 Body weight 60.24 kg Reyna Santos Other Variable Other 12-02-2022 14:45-0400 Diastolic blood pressure 88 mm[Hg] Reyna Santos Other Variable Other 12-02-2022 14:45-0400 Respiratory rate 18 /min Reyna Santos Other Variable Other 12-02-2022 14:45-0400 SaO2% (BldA) [Mass fraction] 100 % Reyna Bartholomewley Other Variable Other 12-02-2022 14:45-0400 Systolic blood pressure 152 mm[Hg] Reyna Danielle Other Variable Other 07-29-2022 16:15-0400 Body height 158.75 cm Nuzhat Liz Other Variable Other 07-29-2022 16:15-0400 Body mass index (BMI) [Ratio] 23.22 kg/m2 Nuzhat Liz Other Variable Other 07-29-2022 16:15-0400 Body temperature 97.7 [degF] Nuzhat Liz Other Variable Other 07-29-2022 16:15-0400 Body weight 58.51 kg Nuzhat Liz Other Variable Other 07-29-2022 16:15-0400 Respiratory rate 18 /min Nuzhat Liz Other Variable Other 07-29-2022 16:15-0400 SaO2% (BldA) [Mass fraction] 92 % Nuzhat Liz Other Variable Other Encounters Encounter Date Encounter Type Care Provider Facility Start: 03-14-2023 End: 03-14-2023 ambulatory CRISTIAN AICHHOLZ Not Available Start: 03-10-2023 End: 03-10-2023 ambulatory CRISTIAN AICHHOLZ Not Available Start: 03-08-2023 End: 03-08-2023 ambulatory Pao Harrison Other Variable Other Start: 03-08-2023 Office outpatient vi sit 15 minutes Pao Harrison [facility] Start: 01-24-2023 End: 01-24-2023 ambulatory CRISTIAN MCCOY Not Available Start: 12-02-2022 End: 12-02-2022 ambulatory Reyna Santos Other Variable Other Start: 12-02-2022 Office outpatient vi sit 15 minutes Reyna Santos [facility] Start: 11-24-2022 ambulatory Jayla brown PA-C Facility[facility] Start: 07-29-2022 End: 07-29-2022 ambulatory Nuzhat Liz Other Variable Other Start: 07-29-2022 Office outpatient vi sit 15 minutes Nuzhat Liz [facility] Start: 07-23-2022 End: 07-23-2022 ambulatory BENEDICT DIAB . Facility:[facility] Start: 05-26-2022 End: 05-27-2022 ambulatory Jayla Clark PA-C Facility[facility] Start: 05-11-2022 End: 05-12-2022 ambulatory Jayla Clark PA-C Facility[facility] Start: 04-20-2022 ambulatory Germain Harley MD Facilit y:[facility] Start: 04-13-2022 End: 04-14-2022 ambulatory Jayla Clark PA-C Facility[facility] Start: 03-29-2022 End: 03-30-2022 ambulatory Jayla Clark PA-C Facility[facility] Start: 03-11-2022 End: 03-12-2022 ambulatory Angelica Hartman Facility:[facility] Start: 12-08-2021 End: 12-09-2021 [facility] Start: 12-08-2021 End: 12-08-2021 Subsequent hospital visit by physician Sr Marichuy MIRANDA Work Phone: [facility] Laboratory Comment on above: Dysuria Start: 09-30-2021 End: 10-01-2021 ambulatory Jayla Clark PA-C Facility[facility] Start: 08-21-2021 End: 08-21-2021 ambulatory ULICES CLARKE Facility:[facility] Start: 08-20-2021 End: 08-20-2021 ambulatory ULICES Charles FEMIKERON Facility:[facility] Start: 07-01-2021 End: 07-02-2021 ambulatory Jayla Anusha Clark PA-C Facility[facility] Start: 06-17-2021 End: 06-18-2021 ambulatory Jayla Clark PA-C Facility[facility] Start: 05-15-2020 End: 05-16-2020 Patient encounter procedure [facility] Start: 05-15-2020 End: 05-15-2020 Subsequent hospital visit by physician Sr Urbina [facility] Laboratory Comment on above: Frequency of urinati on; Vaginal infection; STD exposure Start: 12-17-2019 End: 12-18-2019 Patient encounter procedure [facility] Start: 12-17-2019 End: 12-17-2019 Subsequent hospital visit by physician Sr Urbina [facility] Laboratory Comment on above: Vaginal irritation Procedures Date Procedure Procedure Detail Performing Clinician Start: 05-15-2020 Urinalysis microscop ic only Jarrod Bradley Work Phone: Start: 05-15-2020 Urnls dip stick/tabl et rgnt auto w/o microscopy Jarrod Bradley Work Phone: Start: 12-17-2019 Cul bact xcpt urine blood/stool aerobic isol JARROD BRADLEY Plan of Treatment Date Care Activity Detail Author Start: 09-28-2021 Influenza vaccination Flu vaccine (# 1) [facility] Start: 09-04-2021 DTaP/Tdap/Td vaccine (2 - Td or Tdap) DTaP/Tdap/Td vaccine (2 - Td or Tdap) [facility] Start: 09-04-2021 DTaP/Tdap/Td vaccine (2 - Td) DTaP/Tdap/Td vaccine (2 - Td) [place] Start: 10-30-2019 Influenza vaccination Flu vaccine (# 1) [place] Start: 08-20-2018 Annual Wellness Visi t (AWV) Annual Wellness Visit (AWV) [facility] Start: 05-07-2011 Pneumococcal 65+ yea rs Vaccine (1 of 1 - PPSV23) Pneumococcal 65+ years Vaccine (1 of 1 - PPSV23) [place], [place] Start: 2001 Screening for osteoporosis DEXA (modify frequency per FRAX score) [facility] Start: 1996 Screening for malign ant neoplasm of breast Breast cancer screen [place], [place] Start: 1996 Screening for malign ant neoplasm of colon Colon cancer screen colonoscopy [place], [place] Start: 1996 Shingles Vaccine (1 of 2) Shingles Vaccine (1 of 2) [facility] Start: 05-07-1991 Screening for malign ant neoplasm of colon [facility] Start: 1986 Lipid panel [facility] Start: 1962 COVID-19 Vaccine (1) COVID-19 Vaccin e (1) [facility] [employer] Phone: Start: 1958 Depression Screen Depression Screen [facility] Start: 1952 Pneumococcal 65+ yea rs Vaccine (1 - PCV) Pneumococcal 65+ years Vaccine (1 - PCV) [facility] Start: 1945 COVID-19 Vaccine (#1) COVID-19 Vacci ne (#1) [facility] Start: 1945 TSH Qn TSH testing [place], [place] End: 05-15-2020 C.trachomatis N.gonorrhoeae DNA C.trachomatis N.gonorrhoeae DNA Microbiology Routine Once for 1 Occurrences starting 05/15/2020 until 05/15/2020 [facility] [employer] Phone: Comment on above: Once for 1 Occurrenc es starting 05/15/2020 until 05/15/2020 C.trachomatis N.gonorrhoeae DNA C.trachomatis N.gonorrhoeae DNA Microbiology Routine 05/15/2020 11:57 AM EDT [employer] Phone: End: 12-17-2019 Culture, Genital Culture, Genital Microbiology Routine Vaginal irritation 1 Occurrences starting 12/17/2019 until 12/17/2019 [place] Comment on above: 1 Occurrences starti ng 12/17/2019 until 12/17/2019 Culture, Genital [place], [place] End: 05-15-2020 Culture, Genital Culture, Genital Microbiology Routine Vaginal infection STD exposure 1 Occurrences starting 05/15/2020 until 05/15/2020 [employer] Phone: Comment on above: 1 Occurrences starti ng 05/15/2020 until 05/15/2020 End: 05-15-2020 Culture, Urine Culture, Urine Microbiology Routine Once for 1 Occurrences starting 05/15/2020 until 05/15/2020 [employer] Phone: Comment on above: Once for 1 Occurrenc es starting 05/15/2020 until 05/15/2020 Culture, Urine Culture, Urine Microbiology Routine 05/15/2020 12:54 PM EDT [employer] Phone: End: 12-08-2021 Culture, Urine [facility] [employer] Phone: Comment on above: 1 Occurrences starti ng 12/08/2021 until 12/08/2021 Immunizations Immunization Date Immunization Notes Care Provider Niurka mcallister 09-05-2011 tetanus toxoid, redu latisha diphtheria toxoid, and acellular pertussis vaccine, adsorbed Sr [place], [place] Payers Date Payer Category Payer Unknown [id number] [id number] [id number] 2014 Unknown 2011 Medicare 1958 Medicare [id number] 1959 Unknown [id number] 1946 Unknown [id number] 2.16.8 [id number] 1946 Unknown [id number] 2.16.8 [id number] 1946 Unknown [id number] 2.16.8 [id number] 1946 Unknown [id number] 2.16. [id number] 1946 Unknown [id number] 2.16. [id number] 1946 Unknown [id number] 2.16. [id number] 1946 Unknown [id number] 2.16. [id number] 1946 Unknown [id number] 2.16. [id number] 1946 Unknown [id number] 2.16. [id number] 1945 Unknown [id number] 2.16. 840.1.711691.3.579.2.196 1945 Unknown [id number] 2.16. 840.1.557562.3.579.2.196 1945 Unknown [id number] 2.16. 840.1.309693.3.579.2.196 1945 Unknown [id number] 2.16. 840.1.423925.3.579.2.196 1945 Unknown [id number] 2.16. 840.1.417287.3.579.2.196 1945 Unknown [id number] 2.16. 840.1.419621.3.579.2.196 1945 Unknown [id number] 2.16.84 0.1.303705.3.579.2.593 1945 Unknown [id number] 2.16.84 0.1.299005.3.579.2.593 1945 Unknown [id number] 2.16.84 0.1.067020.3.579.2.593 1945 Unknown [id number] 2.16.84 0.1.758956.3.579.2.1259 1945 Unknown [id number] 2.16.84 0.1.038451.3.579.2.1259 1945 Unknown [id number] 2.16.840 .1.763638.3.579.2.1259 Self-pay Social History Date Type Detail Facility Start: 12-17-2019 End: 12-08-2021 Tobacco smoking status NHIS Current every day [facility] Start: 12-17-2019 End: 12-08-2021 Tobacco use and exposure Never used [place] Start: 12-17-2019 End: 12-08-2021 Alcohol intake Current drinker of alcohol (finding) [place] Start: 1945 Sex Assigned At Not on file [place] Start: 12-08-2021 Alcohol intake STEVEN GUERIN [facility] [employer] Work Phone: Sex Assigned At Sex Assigned At [facility] Variable Other Evaluation note 03-08-2023 Note Date & Type Note Facility 03-08-2023 Evaluation note Encounter Date Diagnosis Assessment Notes Feb, Contact with and (suspected) exposure to other viral communicable diseases (ICD-10 - Z20.828) Feb, Viral URI (ICD-10 - J06.9) Rest. Drink plenty of fluids. Avoid excess dairy. Take Tylenol for pain or discomfort. Use the Flonase nasal spray one spray each nostril daily for 14 days. Follow up with your primary care provider on for your scheduled appointment. Patient is a 77 yo female who presents with complaints of cough, congestion, runny nose and mild sinus tenderness for the past 3 days. Patient endorses pain the left side on the ribs with coughing, reproducible with palpation, not present with deep breathing. Patient state Tylenol helps the pain. She was tested for covid and flu in the office and tested negative. She is being diagnosed with a viral URI. She is prescribed Flonase nasal spray once daily for 14 days for her nasal congestion. She is following up with her PCP on with a scheduled appointment. Variable Other Evaluation note 12-02-2022 Note Date & Type Note Facility 12-02-2022 Evaluation note Encounter Date Diagnosis Assessment Notes Nov, Lower abdominal pain (ICD-10 - R10.30) Reassured UA without abnormality. No signs of UTI. Discussed left lower quadrant tenderness is consistent with recent GI spasms, diarrhea. Diarrhea has improved. Discussed may use probiotic supplement. Discussed bland diet. May use Tylenol as needed for discomfort. Abdominal discomfort should be improving as diarrhea continues to improve. Follow-up with PCP if not improving over the next 5 days or any significantly worsening pain. Patient verbalized understanding of treatment plan. Variable Other Evaluation note 07-29-2022 Note Date & Type Note Facility 07-29-2022 Evaluation note Encounter Date Diagnosis Assessment Notes Jul, Urinary frequency (ICD-10 - R35.0) Discussed diagnosis and dipstick findings with patient. Will hold off on treatment at this time. Offered to send patient culture, however, patient declines at this time. Patient instructed to push fluids. Patient symptoms should improve in the next 48 hours, if symptoms persist follow up with PCP. Immediate eval by ER if back or flank pain, fever, chills, N/V, or any other concerning symptoms arise. Patient verbalizes understanding and is agreeable to treatment plan Variable Other Evaluation note Note Date & Type Note Facility Evaluation note Diagnosis Dysuria documented in this encounter [facility] [employer] Phone: History general Narrative - Reported Note Date & Type Note Facility History general Narrative - Reported Type Medical History anxiety Medical History Esophageal reflux Medical History Hypothyroidism Medical History peripheral vascular disease Surgical History appendectomy Surgical History partial hysterectomy Surgical History bowel surgery Surgical History colonoscopy Hospitalization History see above Hospitalization History abdominal pain Variable Other Assessments Diagnosis Vaginal irritation Unspecified noninflammatory disorder of vagina Diagnosis Frequency of urination Urinary frequency Vaginal infection Vaginitis and vulvovaginitis, unspecified STD exposure Advance Directives No Advanced Directives Records FoundDocuments on File Type Date Recorded Patient Compliance Associate Expl anation ACP-Advance Directive 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 Summary Purpose Family History No Family History Records FoundNo Family History Records FoundNo Family History Records FoundNo Family History Records FoundNo Family History Records FoundNo Family History Records Found Additional Source Comments INFORMATION SOURCE (unrecogn ized section and content) DATE CREATED AUTHOR 05/18/2020 [facility] DATE CREATED AUTHOR AUTHOR'S ORGANIZ ATION 03/18/2021 [facility] DATE CREATED AUTHOR AUTHOR'S ORGANIZ ATION 12/08/2021 [facility] DATE CREATED AUTHOR AUTHOR'S ORGANIZ ATION 05/30/2022 [facility] DATE CREATED AUTHOR AUTHOR'S ORGANIZ ATION 08/06/2022 [facility] DATE CREATED AUTHOR AUTHOR'S ORGANIZ ATION 03/14/2023 [facility] [employer] Care Teams (unrecognized sec tion and content) Data Migration Consultant Relationship Specialty Start Date End Date Sr Kvng U[place], DO [address] [place] [address] PCP - General Family Medicine 06/30/15 REASON FOR VISIT (unrecogniz ed section and content) utiBLADDER INFECTIONPOSS SIN US INFECTION, RIB PAIN FOR RECORDS PERTAINING TO PATIENTS WHO ARE OR HAVE BEEN ENROLLED IN A CHEMICAL DEPENDENCY/SUBSTANCEABUSE PROGRAM, SOME INFORMATION MAY BE OMITTED. This clinical summary was aggregated from multiple sources. Caution should be exercised in using it in the provision of clinical care. This summary normalizes information from multiple sources, and as a consequence, information in this document may materially change the coding, format and clinical context of patient data. In addition, data may be omitted in some cases. CLINICAL DECISIONS SHOULD BE BASED ON THE PRIMARY CLINICAL RECORDS. [employer] [facility]. provides no warranty or guarantee of the accuracy or completeness of information in this document.
--- NOTE | 2023-03-16 13:21 | CA_ITS ---
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: : 1945 Requested By: CRISTIAN MCCOY Order Number: [id number] Reading MD: JAIMIE CUMMINGS Interpretive Statements Biphasic doppler waveforms PVR waveforms with normal upstroke, blunted amplitude and loss of dicrotic notch Right: - no significant pressure gradient between cuffs - normal GENEVIEVE and TBI Left: - significant pressure gradient between the calf and DP cuff - abnormal GENEVIEVE w/ normal TBI Impression: - normal arterial evaluation of the right lower extremity without hemodynamic impairment of the right lower extremity at rest (right GENEVIEVE 0.97) - significant left outflow (tibioperoneal) arterial disease with mild hemodynamic impairment of the left lower extremity at rest (left GENEVIEVE 0.96) Electronically Signed On 03-17-2023 7:15:58 EST by JAIMIE CUMMINGS
== END 2023-03-16 12:18 | disposition home or self-care (01) ==
LOC: CARD 12:18
PROVIDERS: PCP Nurse Practitioner; Visit Provider Nurse Practitioner
DX: I73.9 Peripheral vascular disease, unspecified (principal)
CPT/HCPCS: 93923

== ENCOUNTER 2023-03-24 10:42 | Outpatient (OUT) | payer MEDICARE, OTHER, SELFPAY ==
--- NOTE | 2023-03-24 10:45 | US_ITS ---
The [address] [address] Patient Name: MARGARITA COSME MRN: [id number] date: 1945 Sex: F Assigned Patient Location: [place] Current Patient Location: [place] Accession/Order Number: [id number] Exam Date: 03/24/2023 11:00 Report Date: 03/24/2023 12:47 At the request of: CRISTIAN MCCOY Procedure: US arterial duplex LE LT EXAMINATION: US arterial duplex LE LT HISTORY: peripheral vascular disease I73.9 COMPARISON: No relevant comparison available. TECHNIQUE: Color duplex Doppler ultrasound evaluation analysis was performed in the usual manner. FINDINGS: No significant soft or calcific atherosclerotic plaque is observed Flow velocities range from 53 cm/s in the proximal common femoral artery to 62 cm/s in the distal posterior tibial artery. Normal triphasic waveforms proximally with biphasic waveform in and distal to the popliteal artery US/US arterial duplex LE LT IMPRESSION: No focal flow significant stenosis, occlusion or aneurysm Mild ischemic biphasic waveform within and distal to the popliteal artery Electronically authenticated by: JUWAN NAVA Date: 03/24/2023 12:47
--- OUTSIDE RECORDS SUMMARY | 2023-03-24 10:45 | XMS_ITS | CCD ---
Author Name Unknown Address [address] [facility] [address] [place] [address] Organization [facility] Care Team Providers Care Reed Fixer Name Role Phone House, Sr Kvng Gutierrez Primary Care Provider JARROD BRADLEY Referring Unavailable HOUSE, SR KVNG P Primary Care Unavailable JARROD BRADLEY Referring Unavailable HOUSE, SR KVNG P Primary Care Unavailable JARROD BRADLEY Referring Unavailable HOUSE, SR KVNG P Primary Care Unavailable House DO, Sr Kvng P Primary Care Provider [phone] Amber PA-C, Jayla Tavares Attending Unavai lable [place], Kvng Primary Care Unavailable Gayhart PA-C, Jayla Tavares Attending Unavai lable [place], Kvng Primary Care Unavailable Gayhart PA-C, Jayla Tavares Attending Unavai lable [place], Kvng Primary Care Unavailable Cornelio AuD, Angelica Alfaro Attending Unavaila ble [place], [facility] Primary Care Unavailable Eris Hartman, Purnima Sanders Attending Unavailable [place], Kvng Primary Care Unavailable Gayhart PA-C, Jayla Tavares Referring Unavasteve Harley MD, Germain Haines Attending Unavailable [place], Kvng Primary Care Unavailable Gayhart PA-C, Jayla Tavares Attending Unavai lable [place], Kvng Primary Care Unavailable Gayhart PA-C, Jayla Tavares Attending Unavai lable Gayhart PA-C, Jayla Tavares Referring Unavai lable [place], Kvng Primary Care Unavailable Gayhart PA-C, Jayla Tavares Attending Unavai lable [place], Kvng Primary Care Unavailable Cornelio AuD, Angelica Alfaro Attending Unavaila ble [place], Kvng Primary Care Unavailable Gayhart PA-C, Jayla Tavares Referring Unavai lable Gayhart PA-C, Jayla Tavares Attending [facility], Kvng Primary Care Unavailable Amber RODRIGUEZ, Jayla Tavares Attending [facility], Kvng [facility] Unavailable ULICES CLARKE Attending Unavailable ULICES CLARKE Consulting Unavailable ULICES CLARKE Admitting Unavailable MARICHUY, DR COLON Primary Care Unavailable KRYSTAL WEST Consulting Unavailable ULICES CLARKE Attending Unavailable ULICES CLARKE Consulting Unavailable ULICES CLARKE Admitting Unavailable MARICHUY, DR COLON Primary Care Unavailable DIAB ., BENEDICT Attending Unavailable DIAB ., BENEDICT Admitting Unavailable [place] CAPISTRANO, DR COLON Primary Care Unavailable ANGEL LA Consulting UnavailNuzhat Nguyen Unavailable Reyna Santos Unavailable Pao Terry Unavailable CRISTIAN MCCOY Attending Unavailable AICCRISTIAN OLIVARES Attending Unavailable AICHCRISTIAN OCAMPO Attending Unavailable Allergies Allergy Classification Reported Allergen(s) Allergy Type Date of Onset Reaction(s) Facility (4 sources) Aluminum aspirin; Translations: [aspirin] Drug Allergy 06-30-19 16 [place], [place] (6 sources) moxifloxacin Drug Allergy 07-17-19 15 Anaphylaxis [place], [place] (3 sources) Sulfamethoxazole / Trimethoprim Drug Allergy 12-09-19 22 Other (See Comments) [facility] Work Phone: (2 sources) moxifloxacin; Translations: [Avelox] Drug Allergy [facility] Repository (1 source) Penicillin; Translations: [penicillin] Drug Allergy [facility] Repository (1 source) Aspirin Drug Allergy [facility] Repository (3 sources) Aspirin Drug Allergy heart rate increased [facility] Other (3 sources) Penicillin G Drug Allergy feels funky [facility] Other Medications Current Medications Medication Drug Class(es) [...] infection] Episodic Other aftercare (1 source) Other half-way (current) drug therapy; Translations: [OTH [facility] CURRENT DRUG THERAPY] Onset: 07-26-2022 Episodic Other [...] (COVID-19) RNA ISABELA+probe Ql (Unsp spec) Negative [facility] Other COVID + FLU Quick Testing Negative [facility] Other Urinalysis - AUTOMATEDon Appearance (U) clear [facility] Other Bilirubin Ql (U) Negative [employer] Other Color (U) yellow [facility] Other Glucose Ql (U) Negative [facility] Other Hemoglobin Ql (U) Negative [employer] Other Ketones Ql (U) Negative [facility] Other Leukocyte esterase Test strip Ql (U) Negative [facility] Other Nitrite Ql (U) Negative [employer] Other pH (U) 5.5 [pH] [facility] Other Protein Ql (U) Negative [employer] Other Specific gravity (U) [Rel density] >1.030 [facility] Other Urobilinogen (U) [Mass/Vol] 0.2 mg/dL [facility] Other Urinalysis - AUTOMATED [facility] Other Urinalysis - AUTOMATEDon Appearance (U) cloudy [facility] Other Bilirubin Ql (U) Negative [employer] Other Color (U) yellow [facility] Other Glucose Ql (U) Negative [facility] Other Hemoglobin Ql (U) Negative [employer] Other Ketones Ql (U) Negative [employer] Other Leukocyte esterase Test strip Ql (U) trace [facility] Other Nitrite Ql (U) Negative [employer] Other pH (U) 6.0 [pH] [facility] Other Protein Ql (U) Negative [employer] Other Specific gravity (U) [Rel density] 1.025 [facility] Other Urobilinogen (U) [Mass/Vol] 0.2 E.U d/l [facility] Other Urinalysis - AUTOMATED [facility] Other Otolaryngology Office/Clinic Noteon 05-26-2022 Otolaryngology Office/Clinic [...] Jayla Clark PA-C 05/28/22 22:27 EDT Normal [facility] Otolaryngology Office/Clinic Noteon 05-11-2022 Otolaryngology Office/Clinic [...] Jayla Clark PA-C 05/14/22 15:32 EDT Normal [facility] Otolaryngology Office/Clinic Noteon 04-13-2022 Otolaryngology Office/Clinic [...] delayed releas (more content not included)... Normal [facility] Otolaryngology Office/Clinic Noteon 03-29-2022 Otolaryngology Office/Clinic [...] mL, 0 Refill(s), 04/08/22 10:26:00 EST, Pharmacy: [facility] #[id number] Medical Decision Making Chronic conditions NOT treated [...] Jayla Clark PA-C 04/01/22 12:51 EST Normal [facility] Audiology Office/Clinic Note on 03-11-2022 Audiology [...] ___ Angelica Sommer 03/11/22 11:20 EST Normal [facility] Audiology Office/Clinic Note HISTORY: Patient was [...] ___ Angelica Sommer 03/11/22 11:14 EST Normal [facility] Otolaryngology Office/Clinic Noteon 09-30-2021 Otolaryngology Office/Clinic [...] aspirin (Tachyc (more content not included)... Normal [facility] Covid-19 PCR (CVDTBH)on 07-30 SARS-CoV-2 (COVID-19) RNA ISABELA+probe Ql (Unsp spec) Detected Critically abnormal NOT DETECTED [facility] Comment on above: Result Comment: This test is not yet approved or cleared by the [place] FDA. When there are no FDA-approved or cleared tests available, and other criteria are met, FDA can make tests available under an emergency access mechanism called an Emergency Use Authorization (EUA). The EUA for this test is supported by the Supervisor [employer] of Health and Human Service's declaration that [...] used). Performed By: #### C VDTB #### [facility] [address] [place] [address] Dr. Dirk Patton ER URINE PROFILEon 2 Bilirubin Ql (U) Negative Normal NEGATIVE [facility] Comment on above: Performed By: #### E RUR #### [facility] [address] [place] [address] Dr. Dirk Patton Clarity (U) CLEAR Normal CLEAR [facility] Comment on above: Performed By: #### E RUR #### [facility] [address] [place] [address] Dr. Dirk Patton Color (U) YELLOW Normal YELLOW [facility] Comment on above: Performed By: #### E RUR #### [facility] [address] [place] [address] Dr. Dirk JARRELLAraceli A micrscopic examination will be performed if indicated. Normal [facility] Comment on above: Performed By: #### E RUR #### [facility] [address] [place] [address] Dr. Dirk Patton Glucose Ql (U) Negative Normal NEGATIVE [facility] Comment on above: Performed By: #### E RUR #### [facility] [address] [place] [address] Dr. Dirk Patton Hemoglobin Ql (U) Negative Normal NEGATIVE [facility] Comment on above: Performed By: #### E RUR #### [facility] [address] [place] [address] Dr. Dirk Patton Ketones Ql (U) Negative Normal NEGATIVE [facility] Comment on above: Performed By: #### E RUR #### [facility] [address] [place] [address] Dr. Dirk Patton LEUKOCYTES Negative Normal NEGATIVE [facility] Comment on above: Performed By: #### E RUR #### [facility] [address] [place] [address] Dr. Dirk Patton Nitrite Ql (U) Negative Normal NEGATIVE [facility] Comment on above: Performed By: #### E RUR #### [facility] [address] [place] [address] Dr. Dirk Patton pH (U) 6.0 [pH] Normal 5-9 [facility] Comment on above: Performed By: #### E RUR #### [facility] [address] [place] [address] Dr. Dirk Patton SPEC GRAVITY 1.015 Normal 1.005-<=1.02 5 [facility] Comment on above: Performed By: #### E RUR #### [facility] [address] [place] [address] Dr. Dirk Patton UA PROTEIN Negative Normal NEGATIVE/ TRACE [facility] Comment on above: Performed By: #### E RUR #### [facility] [address] [place] [address] Dr. Dirk Patton UR MICRO IND NOT INDICATED Normal [facility] Comment on above: Performed By: #### E RUR #### [facility] [address] [place] [address] Dr. Dirk Patton Urobilinogen Qn (U) 0.2 {Jairo'U}/dL Normal 0.2 - 1.0 [facility] Comment on above: Performed By: #### E RUR #### [facility] [address] [place] [address] Dr. Dirk Patton XR LSPINE 2_3 VIEWSon [...] KRYSTAL WEST Date: 2021-08-20 08:50 Normal [facility] Otolaryngology Office/Clinic Noteon 07-01-2021 Otolaryngology Office/Clinic [...] Jayla Clark PA-C 07/02/21 09:20 EDT Normal [facility] Otolaryngology Office/Clinic Noteon 06-17-2021 Otolaryngology Office/Clinic [...] 06/27/21 13:12:00 EDT, Pharmacy: [facility] Medical Decision Making Chronic conditions NOT treated [...] 20 year( (more content not included)... Normal [facility] US carotid doppler BIon - US carotid doppler BI [facility] [place] [address] Ultrasound Report Signed Patient: Daphne Fermin MR#: [id number] 6 : 1945 Acct:[id number] Age/Sex: 75 / F ADM Date: 05/22/20 [facility]: [facility] Room: Type[facility] Attending Dr: Montana Mora MD Ordering [...] Montana Mora MD05/23/2020 4:31 PM Dictation Location: [place] [address] Tech: Dorie Rossi Transcribed By: [facility] 05/23/20 163 Dictated By: Montana Mora MD 05/23/20 1630 Signed By: 05/23/20 163 [facility] Cult,Genitalon 05-18-2020 Cult,Genital Specimen Description .VAGINA Special Requests NOT REPORTED Culture NORMAL URO-GENITAL KARLENE NEGATIVE FOR NEISSERIA GONORRHOEAE NEGATIVE FOR BETA HEMOLYTIC STREPTOCOCCI Report Status FINAL 05/18/2020 [facility] Comment on above: Performed By: #### G EC #### [employer] [address] [place] [address] [phone] Top Stop Attacher: Tim Blair MD [facility] [address] [place] [address] Top Stop Attacher: Ender Thomas MD Cult,Urineon 05-17-2020 Cult,Urine Specimen Description .CLEAN CATCH URINE Special Requests NOT REPORTED Culture NO GROWTH Report Status FINAL 05/16/2020 [facility] Comment on above: Performed By: #### U RC #### [employer] [address] [place] [address] [phone] Top Stop Attacher: Tim Blair MD [facility] [address] [place] [place] [address] Top Stop Attacher: Ender Thomas MD Chlamydia/GC,DNA Ampon 05-16 Chlamydia Probe Negative Normal NEG [facility] Comment on above: Result Comment: CHLA [...] target. Performed By: #### S WCGP #### [address] [phone] Top Stop Attacher: Tim Blair MD Gonorrhea Probe Negative Normal [facility] Comment on above: Result Comment: NEIS SERIA [...] target. Performed By: #### S WCGP #### [address] [phone] Top Stop Attacher: Tim Blair MD Microscopic Urinalysison Amorphous, UA NOT REPORTED None [facility] Work Phone: Bacteria, UA 1+ Abnormal None [facility] Work Phone: Casts UA NOT REPORTED /LPF [facility] Work Phone: Crystals, UA NOT REPORTED None /HPF [employer] [facility] Work Phone: Epithelial Cells UA 0 TO 2 [facility] Work Phone: Interpretation and review of laboratory results Abnormal [facility] Work Phone: Mucus, UA NOT REPORTED None [facility] Work Phone: Other Observations UA NOT REPORTED NOT REQ. [facility] Work Phone: RBC (U) [#/Vol] None [employer] [facility] Work Phone: Renal Epithelial, UA NOT REPORTED 0 /HPF [facility] [employer] Work Phone: Trichomonas, UA NOT REPORTED None [facility] Work Phone: WBC, UA 10 TO 20 [facility] Work Phone: Yeast, UA NOT REPORTED None [facility] Work Phone: - [facility] Work Phone: UA w/Reflex Cultureon 2020 Acetoacetic Acid,Ur Negative Normal NEG [facility] Comment on above: Performed By: #### U MICAO, UAX #### [facility] [address] [place] [address] Dr[place], [place] [phone] Top Stop Attacher: Ender Thomas MD Bilirubin, SemiQt,Ur Negative Normal NEG [facility] Comment on above: Performed By: #### U MICAO, UAX #### [facility] [address] [place] [address] Dr. [place], [place] [phone] Top Stop Attacher: Ender Thomas MD Color (U) YELLOW Normal YEL [facility] Comment on above: Performed By: #### U MICAO, UAX #### [facility] [address] [place] [address] [place] [address] Top Stop Attacher: Ender Thomas MD Glucose Ql (U) Negative Normal NEG [facility] Comment on above: Performed By: #### U MICAO, UAX #### [facility] [address] [place], [place] [phone] Top Stop Attacher: Ender Thomas MD Hemoglobin, Ur Negative Normal NEG [facility] Comment on above: Performed By: #### U MICAO, UAX #### [facility] [address] [place], [place] [phone] Top Stop Attacher: Ender Thomas MD Leukocyte esterase Test strip Ql (U) MODERATE Abnormal NEG [facility] Comment on above: Performed By: #### U MICAO, UAX #### [facility] [address] [place], [place] [phone] Top Stop Attacher: Ender Thomas MD Nitrite,Ur Negative Normal NEG [facility] Comment on above: Performed By: #### U MICAO, UAX #### [facility] [address] [place] [address] Dr. [place], [place] [phone] Top Stop Attacher: Ender Thomas MD pH (U) 6.0 [pH] Normal 5.0-9.0 [facility] Comment on above: Performed By: #### U MICAO, UAX #### [facility] [address] [place] [address] Dr. [place], [place] [phone] Top Stop Attacher: Ender Thomas MD Protein Ql (U) Negative Normal NEG [facility] Comment on above: Performed By: #### U MICAO, UAX #### [facility] [address] [place] [address] Dr. [place], [place] [phone] Top Stop Attacher: Ender Thomas MD Specific gravity (U) [Rel density] 1.020 Normal 1.010-1.020 [facility] Comment on above: Performed By: #### U MICAO, UAX #### [facility] [address] [place] [address] Dr. [place], [place] [phone] Top Stop Attacher: Ender Thomas MD Turbidity CLEAR Normal CLEAR [facility] Comment on above: Performed By: #### U MICAO, UAX #### [facility] [address] [place] [address] Dr[place], [place] [phone] Top Stop Attacher: Ender Thomas MD Urobilinogen,Ur Normal Normal NORM [facility] Comment on above: Performed By: #### U MICAO, UAX #### [facility] [address] [place] [address] Top Stop Attacher: Ender Thomas MD Comment NOT REPORTED Normal [facility] Comment on above: Performed By: #### U MICAO, UAX #### [facility] [address] [place] [address] Top Stop Attacher: Ender Thomas MD Urinalysis Reflex to Culture on 05-15-2020 Bilirubin Urine Negative NEGATIVE [facility] [place] [facility] Work Phone: Color, UA YELLOW YELLOW [facility] [employer] Work Phone: Glucose, Ur Negative NEGATIVE [facility] Work Phone: Interpretation and review of laboratory results Abnormal [facility] [employer] Work Phone: Ketones Ql (U) Negative NEGATIVE [facility] Work Phone: Leukocyte esterase Test strip Ql (U) MODERATE Abnormal NEGATIVE [facility] Phone: Nitrite, Urine Negative NEGATIVE [facility] Work Phone: pH, UA 6.0 [employer] Work Phone: Protein (U) [Mass/Vol] Negative NEGATIVE [facility] [employer] Phone: Specific [place], UA 1.020 [employer] Work Phone: Turbidity UA CLEAR CLEAR [facility] Phone: Urinalysis Comments NOT REPORTED [facility] Phone: Urine Hgb Negative NEGATIVE [facility] [employer] Work Phone: Urobilinogen, Urine Normal Normal [facility] Work Phone: Urinalysis,Microon 1 ----- Normal [facility] Comment on above: Performed By: #### U MICAO, UAX #### [facility] [address] [place], [place] [phone] Top Stop Attacher: Ender Thomas MD Bacteria LM.HPF (Urine sed) [#/Area] 1+ Abnormal [facility] Comment on above: Performed By: #### U MICAO, UAX #### [facility] [address] [place], [place] [phone] Top Stop Attacher: Ender Thomas MD Epithelial cells LM.HPF (Urine sed) [#/Area] 0 TO 2 Normal 0-25 [facility] Comment on above: Performed By: #### U MICAO, UAX #### [address] [place], [place] [phone] Top Stop Attacher: Ender Thomas MD RBC (U) [#/Vol] None Normal 0-2 [facility] Comment on above: Performed By: #### U MICAO, UAX #### [address] [place], [place] [phone] Top Stop Attacher: Ender Thomas MD WBC (U) [#/Vol] 10 TO 20 Normal 0-5 [facility] Comment on above: Performed By: #### U MICAO, UAX #### [address] [place], [place] [phone] Top Stop Attacher: Ender Thomas MD Amorphous sediment LM Ql (Urine sed) NOT REPORTED Normal [facility] Comment on above: Performed By: #### U MICAO, UAX #### [facility] [address] [place], [place] [phone] Top Stop Attacher: Ender Thomas MD Casts LM.LPF (Urine sed) [#/Area] NOT REPORTED Normal [facility] Comment on above: Performed By: #### U MICAO, UAX #### [facility] [address] [place], [place] [phone] Top Stop Attacher: Ender Thomas MD Crystals LM Nom (Urine sed) NOT REPORTED Normal NONE [facility] Comment on above: Performed By: #### U OSMLEO, UAX #### [facility] [address] [place], [place] [phone] Top Stop Attacher: Ender Thomas MD Epithelial, Renal NOT REPORTED Normal 0 [facility] Comment on above: Performed By: #### U MICAO, UAX #### [facility] [address] [place] [address] Top Stop Attacher: Ender Thomas MD Mucus Strands NOT REPORTED Normal [facility] Comment on above: Performed By: #### U OSMELO, UAX #### [facility] [address] [place] [address] Top Stop Attacher: Ender Thomas MD Other Observations NOT REPORTED Normal NREQ [facility] Comment on above: Performed By: #### U OSMELO, UAX #### [facility] [address] [place] [address] Top Stop Attacher: Ender Thomas MD Trichomonas NOT REPORTED Normal [facility] Comment on above: Performed By: #### U OSMELO, UAX #### [facility] [address] [place], [place] [phone] Top Stop Attacher: Ender Thomas MD Yeast LM Ql (Urine sed) NOT REPORTED Normal [facility] Comment on above: Performed By: #### U MICAO, UAX #### [facility] [address] [place], [place] [phone] Top Stop Attacher: Ender Thomas MD US ankle/arm indiceson 04-03 US ankle/arm indices [facility] [address] [address] Ultrasound Report Signed Patient: Daphne Fermin MR#: [id number] 6 : 1945 Acct:[id number] Age/Sex: 74 / F ADM Date: 04/03/20 Loc: Room: Type: [facility] Attending Dr: Montana Mora MD Ordering [...] Montana Mora MD04/03/2020 1:38 PM Dictation Location: [place] [address] Tech: Daphne Hernandez Transcribed By: HAIDER 04/03/20 1338 Dictated By: Montana Mora MD 04/03/20 1330 Signed By: 04/03/20 1338 [facility] Cult,Genitalon 12-20-2019 Cult,Genital Specimen Description .VAGINA Special Requests NOT REPORTED Culture STREPTOCOCCI, BETA HEMOLYTIC GROUP B MODERATE GROWTH NORMAL URO-GENITAL KARLENE NEGATIVE FOR NEISSERIA GONORRHOEAE Report Status FINAL 12/20/2019 Normal [facility] Comment on above: Performed By: #### G EC #### [facility] [address] [place] [address] Top Stop Attacher: Tim Blair MD [facility] [address] [place] [address] Top Stop Attacher: Juarez Skinner MD Vital Signs Date Time Vital Sign Value Performing Clinician Facility 03-08-2023 16:15-0500 Body height 158.75 cm Pao Harrison Other [facility] Other 03-08-2023 16:15-0500 Body mass index (BMI) [Ratio] 23.83 kg/m2 Pao Harrison Other [facility] Other 03-08-2023 16:15-0500 Body temperature 98.3 [degF] Pao Harrison Other [facility] Other 03-08-2023 16:15-0500 Body weight 60.06 kg Pao Harrison Other [facility] Other 03-08-2023 16:15-0500 Respiratory rate 18 /min Pao Harrison Other [facility] Other 03-08-2023 16:15-0500 SaO2% (BldA) [Mass fraction] 96 % Pao Harrison Other [facility] Other 12-02-2022 14:45-0400 Body height 158.75 cm Reyna Santos Other [facility] Other 12-02-2022 14:45-0400 Body mass index (BMI) [Ratio] 23.9 kg/m2 Reyna Santos Other [facility] Other 12-02-2022 14:45-0400 Body temperature 98.1 [degF] Reyna Santos Other [facility] Other 12-02-2022 14:45-0400 Body weight 60.24 kg Reyna Santos Other [facility] Other 12-02-2022 14:45-0400 Diastolic blood pressure 88 mm[Hg] Reyna Santos Other [facility] Other 12-02-2022 14:45-0400 Respiratory rate 18 /min Reyna Santos Other [facility] Other 12-02-2022 14:45-0400 SaO2% (BldA) [Mass fraction] 100 % Reyna Bartholomewley Other [facility] Other 12-02-2022 14:45-0400 Systolic blood pressure 152 mm[Hg] Reyna Danielle Other [facility] Other 07-29-2022 16:15-0400 Body height 158.75 cm Nuzhat Liz Other [facility] Other 07-29-2022 16:15-0400 Body mass index (BMI) [Ratio] 23.22 kg/m2 Nuzhat Liz Other [facility] Other 07-29-2022 16:15-0400 Body temperature 97.7 [degF] Nuzhat Liz Other [facility] Other 07-29-2022 16:15-0400 Body weight 58.51 kg Nuzhat Liz Other [facility] Other 07-29-2022 16:15-0400 Respiratory rate 18 /min Nuzhat Liz Other [facility] Other 07-29-2022 16:15-0400 SaO2% (BldA) [Mass fraction] 92 % Nuzhat Liz Other [facility] Other Encounters Encounter Date Encounter Type Care Provider Facility Start: 03-14-2023 End: 03-14-2023 ambulatory CRISTIAN AICHHOLZ Not Available Start: 03-10-2023 End: 03-10-2023 ambulatory CRISTIAN AICHHOLZ Not Available Start: 03-08-2023 End: 03-08-2023 ambulatory Pao Harrison Other [facility] Start: 03-08-2023 Office outpatient vi sit 15 minutes Pao Harrison [facility] Start: 01-24-2023 End: 01-24-2023 ambulatory CRISTIAN MCCOY Not Available Start: 12-02-2022 End: 12-02-2022 ambulatory Reyna Santos Other [facility] Start: 12-02-2022 Office outpatient vi sit 15 minutes Reyna Santos [facility] Start: 11-24-2022 ambulatory Jayla brown PA-C [facility] Start: 07-29-2022 End: 07-29-2022 ambulatory Nuzhat Liz Other [facility] Start: 07-29-2022 Office outpatient vi sit [...] Start: 12-08-2021 End: 12-09-2021 [facility] Start: 12-08-2021 End: 12-08-2021 Subsequent hospital visit by physician Sr Marichuy MIRANDA Work Phone: [facility] Laboratory Comment on above: Dysuria Start: 09-30-2021 End: 10-01-2021 ambulatory Jayla Clark PA-C Facility[facility] Start: 08-21-2021 End: 08-21-2021 ambulatory ULICES CLARKE Facility:[facility] Start: 08-20-2021 End: 08-20-2021 ambulatory ULICES Charles FEMIKERON Facility:[facility] Start: 07-01-2021 End: 07-02-2021 ambulatory Jayla Anusha Clark PA-C Facility[facility] Start: 06-17-2021 End: 06-18-2021 ambulatory Jayla Clark PA-C Facility[facility] Start: 05-15-2020 End: 05-16-2020 Patient encounter procedure [facility] Start: 05-15-2020 End: 05-15-2020 Subsequent hospital visit by physician Sr Urbina [facility] Laboratory Comment on above: Frequency of urinati on; Vaginal infection; STD exposure Start: 12-17-2019 End: 12-18-2019 Patient encounter procedure [facility] Start: 12-17-2019 End: 12-17-2019 Subsequent hospital visit by physician Sr Urbina [facility] Laboratory Comment on above: Vaginal irritation Procedures [...] 09-28-2021 Influenza vaccination Flu vaccine (# 1) [facility] Start: 09-04-2021 DTaP/Tdap/Td vaccine (2 - Td or Tdap) DTaP/Tdap/Td vaccine (2 - Td or Tdap) [facility] Start: 09-04-2021 DTaP/Tdap/Td vaccine (2 - Td) DTaP/Tdap/Td vaccine (2 - Td) [place] Start: 10-30-2019 Influenza vaccination Flu vaccine (# 1) [place] Start: 08-20-2018 Annual Wellness Visi t (AWV) Annual Wellness Visit (AWV) [facility] Start: 05-07-2011 Pneumococcal 65+ yea rs Vaccine (1 of 1 - PPSV23) Pneumococcal 65+ years Vaccine (1 of 1 - PPSV23) [place], [place] Start: 2001 Screening for osteoporosis DEXA (modify frequency per FRAX score) [facility] Start: 1996 Screening for malign ant neoplasm of breast Breast cancer screen [place], [place] Start: 1996 Screening for malign ant neoplasm of colon Colon cancer screen colonoscopy [place], [place] Start: 1996 Shingles Vaccine (1 of 2) Shingles Vaccine (1 of 2) [facility] Start: 05-07-1991 Screening for malign ant neoplasm of colon [facility] Start: 1986 Lipid panel [facility] Start: 1962 COVID-19 Vaccine (1) COVID-19 Vaccin e (1) [facility] [employer] Phone: Start: 1958 Depression Screen Depression Screen [facility] Start: 1952 Pneumococcal 65+ yea rs Vaccine (1 - PCV) Pneumococcal 65+ years Vaccine (1 - PCV) [facility] Start: 1946 COVID-19 Vaccine (#1) COVID-19 Vacci ne (#1) [facility] Start: 1946 TSH Qn TSH testing [place], [place] End: 05-15-2020 C.trachomatis N.gonorrhoeae DNA C.trachomatis N.gonorrhoeae DNA Microbiology Routine Once for 1 Occurrences starting 05/15/2020 until 05/15/[address] [facility] [employer] Phone: Comment on above: Once for 1 Occurrenc es starting 05/15/2020 until 05/15/2020 C.trachomatis N.gonorrhoeae DNA C.trachomatis N.gonorrhoeae DNA Microbiology Routine 05/15/2020 11:57 AM EDT [email or web address] Phone: End: 12-17-2019 Culture, Genital Culture, Genital Microbiology Routine Vaginal irritation 1 Occurrences starting 12/17/2019 until 12/17/2019 [place], [place] Comment on above: 1 Occurrences starti ng 12/17/2019 until 12/17/2019 Culture, Genital [place], [place] End: 05-15-2020 Culture, Genital Culture, Genital Microbiology Routine Vaginal infection STD exposure 1 Occurrences starting 05/15/2020 until 05/15/2020 [email or web address] Phone: Comment on above: 1 Occurrences starti ng 05/15/2020 until 05/15/2020 End: 05-15-2020 Culture, Urine Culture, Urine Microbiology Routine Once for 1 Occurrences starting 05/15/2020 until 05/15/2020 [email or web address] Phone: Comment on above: Once for 1 Occurrenc es starting 05/15/2020 until 05/15/2020 Culture, Urine Culture, Urine Microbiology Routine 05/15/2020 12:54 PM EDT [email or web address] Phone: End: 12-08-2021 Culture, Urine [facility] [employer] Phone: Comment on above: 1 Occurrences starti ng 12/08/2021 until 12/08/2021 Immunizations Immunization Date Immunization Notes Care Provider Niurka mcallister 09-05-2011 tetanus toxoid, redu latisha diphtheria toxoid, and acellular pertussis vaccine, adsorbed Sr [place] Payers Date Payer Category Payer Unknown [id number] 1.2.8 [id number] 2014 Unknown 2011 Medicare 1958 Medicare [id number] 1959 Unknown [id number] 1946 Unknown [id number] 2.16.8 40.1.606100.3.579.2.173 1946 Unknown [id number] 2.16.8 40.1.434841.3.579.2.173 1946 Unknown [id number] 2.16.8 40.1.066628.3.579.2.174 1946 Unknown [id number] 2.16. 840.1.527816.3.579.2.196 1946 Unknown [id number] 2.16. 840.1.736873.3.579.2.196 1946 Unknown [id number] 2.16. 840.1.367943.3.579.2.196 1946 Unknown [id number] 2.16. 840.1.695904.3.579.2.196 1946 Unknown [id number] 2.16. 840.1.458429.3.579.2.196 1946 Unknown [id number] 2.16. 840.1.628039.3.579.2.196 1946 Unknown [id number] 2.16. 840.1.745413.3.579.2.196 1946 Unknown [id number] 2.16. 840.1.595812.3.579.2.196 1946 Unknown [id number] 2.16. 840.1.502399.3.579.2.196 1946 Unknown [id number] 2.16. 840.1.738190.3.579.2.196 1946 Unknown [id number] 2.16. 840.1.649629.3.579.2.196 1946 Unknown [id number] 2.16. 840.1.435233.3.579.2.196 1946 Unknown [id number] 2.16.84 0.1.537910.3.579.2.593 1946 Unknown [id number] 2.16.84 0.1.706338.3.579.2.593 1946 Unknown [id number] 2.16.84 0.1.287046.3.579.2.593 1946 Unknown [id number] 2.16.84 0.1.147157.3.579.2.1259 1946 Unknown [id number] 2.16.84 0.1.793827.3.579.2.1259 1946 Unknown [id number] 2.16.840 .1.716159.3.579.2.1259 Self-pay Social History Date Type Detail Facility Start: 12-17-2019 End: 12-08-2021 Tobacco smoking status NHIS Current every day [facility] Start: 12-17-2019 End: 12-08-2021 Tobacco use and exposure Never used [place], [place] Start: 12-17-2019 End: 12-08-2021 Alcohol intake Current drinker of alcohol (finding) [place], [place] Start: 1945 Sex Assigned At Not on file [place], [place] Start: 12-08-2021 Alcohol intake [facility] [employer] Work Phone: Sex Assigned At Sex Assigned At [facility] Other Evaluation note 03-08-2023 Note Date & [...] her PCP on with a scheduled appointment. [facility] Evaluation note 12-02-2022 Note Date & [...] pain. Patient verbalized understanding of treatment plan. [facility] Other Evaluation note 07-29-2022 Note Date & [...] understanding and is agreeable to treatment plan [facility] Other Evaluation note Note Date & Type Note Facility Evaluation note Diagnosis Dysuria documented in this encounter [facility] [employer] Phone: History general Narrative - Reported Note Date & Type Note Facility History general Narrative - Reported Type Medical History anxiety Medical History Esophageal reflux Medical History Hypothyroidism Medical History peripheral vascular disease Surgical History appendectomy Surgical History partial hysterectomy Surgical History bowel surgery Surgical History colonoscopy Hospitalization History see above Hospitalization History abdominal pain [facility] Other Assessments Diagnosis Vaginal irritation Unspecified noninflammatory disorder of vagina Diagnosis Frequency of urination Urinary frequency Vaginal infection Vaginitis and vulvovaginitis, unspecified STD exposure Advance Directives No Advanced Directives Records FoundDocuments on File Type Date Recorded Patient 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 Expl anation ACP-Advance Directive ACP-Power of Picking Supervisor Summary Purpose Family History No Family History Records FoundNo Family History Records FoundNo Family History Records FoundNo Family History Records FoundNo Family History Records FoundNo Family History Records Found Additional Source Comments INFORMATION SOURCE (unrecogn ized section and content) DATE CREATED AUTHOR 05/18/2020 [facility] DATE CREATED AUTHOR AUTHOR'S ORGANIZ ATION 03/18/2021 [facility] DATE CREATED AUTHOR AUTHOR'S ORGANIZ ATION 12/08/2021 [facility] DATE CREATED AUTHOR AUTHOR'S ORGANIZ ATION 05/30/2022 [facility] DATE CREATED AUTHOR AUTHOR'S ORGANIZ ATION 08/06/2022 [facility] DATE CREATED AUTHOR AUTHOR'S ORGANIZ ATION 03/14/2023 [facility] [employer] Care Teams (unrecognized sec tion and content) Reed Fixer Relationship Specialty Start Date End Date Sr Kvng Urbina, DO [address] [place] [address] PCP - General Family Medicine 06/30/15 REASON [...] BE BASED ON THE PRIMARY CLINICAL RECORDS. [employer] [facility]. provides no warranty or guarantee of the accuracy or completeness of information in this document.
== END 2023-03-24 10:43 | disposition home or self-care (01) ==
LOC: US 10:42
PROVIDERS: PCP Nurse Practitioner; Visit Provider Nurse Practitioner
DX: I73.9 Peripheral vascular disease, unspecified (principal)
CPT/HCPCS: 93926

== ENCOUNTER 2023-06-04 11:26 | Emergency (ER) | payer MEDICARE, OTHER, SELFPAY ==
--- OUTSIDE RECORDS SUMMARY | 2023-06-04 11:34 | XMS_ITS | CCD ---
Author Organization [facility] Care Team Providers Care Mri Technologist Name Role Phone House, Sr Kvng Gutierrez Primary Care Provider JARROD BRADLEY Referring Unavailable HOUSE, SR KVNG Gutierrez Primary Care Unavailable JARROD BRADLEY Referring Unavailable HOUSE, SR KVNG Gutierrez Primary Care Unavailable JARROD BRADLEY Referring Unavailable HOUSE, SR KVNG Gutierrez Primary Care Unavailable House DO, Sr Kvng Gutierrez Primary Care Provider [phone] ULICES CLARKE Attending Unavailable ULICES CLARKE Consulting Unavailable ULICES CLARKE Admitting Unavailable HOUSE, DR COLON Primary Care Unavailable KRYSTAL WEST Consulting Unavailable ULICES CLARKE Attending Unavailable ULICES CLARKE Consulting Unavailable ULICES CLARKE Admitting Unavailable HOUSE, DR COLON Primary Care Unavailable STEVEN .BENEDICT Attending Unavailable DIAB .BENEDICT Admitting Unavailable HOUSE, DR COLON Primary Care Unavailable GRECHNY ., ANGEL FLORES Consulting UnavailNuzhat Nguyen Unavailable Reyna Satnos Unavailable Pao Terry Unavailable Norman Matias MD Primary Care Provider Rebecca AuD, No Minaya Attending Unavai lable House DO, Kvng Alfaro Primary Care Aretha Fernandez AuD, No Minaya Attending Unavai lable Mize DO, Kvng Alfaro Primary Care Aretha Clark PA-C, Jayla Tavares Attending Unavai lable Mize DO, Kvng Alfaro Primary Care Unavai lable Mize DO, Kvng Dominic Primary Care Jennyvasteve Fernandez AuD, No Minaya Attending Unavai lable Mize DO, Kvng Alfaro Primary Care Aretha Clark PA-C, Jayla Tavares Attending Unavai lable House DO, [facility] Primary Care Unavai lable Amber RODRIGUEZ, Jayla Tavares Attending Unavai lable Amber RODRIGUEZ, Jayla Tavares Attending Unavai lable House DO, [facility] Primary Care Unavai lable Jones AuD, Isabelle Attending Unavailable House DO, [facility] Unavai lable House DO, [facility] Unavai lable Jones AuD, Isabelle Attending Unavailable House DO, [facility] Primary [facility] [place] Unavai lable Edgarton AuD, No Minaya Attending Unavai lable AICHHOLZ, RUTH Attending Unavailable AICHHOLZ, RUTH Attending Unavailable AICHHOLZ, RUTH Attending Unavailable AICHHOLZ, RUTH Attending Unavailable AICHHOLZ, RUTH Attending Unavailable Allergies Allergy Classification Reported Allergen(s) Allergy Type Date of Onset Reaction(s) Facility (8 sources) Aluminum aspirin; Translations: [aspirin] Drug Allergy 06-30-19 16 TACHYCARDIA, heart rate increased [place], [place] (10 sources) moxifloxacin Drug Allergy 07-17-19 15 Anaphylaxis [place], [place] (6 sources) Sulfamethoxazole / Trimethoprim Drug Allergy 12-09-19 22 Other (See Comments) STEVEN [employer]EL[employer] [facility] Work Phone: (1 source) Aspirin Drug Allergy [facility] Repository (2 sources) moxifloxacin; Translations: [Avelox] Drug Allergy [facility] Repository (3 sources) Aspirin Drug Allergy heart rate increased [facility] Other (4 sources) Penicillin G Drug Allergy 05-26-19 24 feels funky [facility] (1 source) Penicillin; Translations: [penicillin] Drug Allergy [facility] Repository (1 source) Sulfamethoxazole Drug Allergy 05-26-19 24 patient states will not take it because it killed her si... [facility] (1 source) Trimethoprim Drug Allergy 05-26-19 24 patient states will not take it because it killed her si... [facility] Medications Current Medications Medication Drug Class(es) Dates Sig (Normalized) Sig (Original) acetaminophen 325 mg oral tablet (9 sources) acetaminophen (T ylenol) 325 MG tablet Take by mouth. 0 Active take 1 tablet by dayana th every six hours as needed for pain acetaminophen (TYLENOL) 500 MG tablet Ta ke 500 mg by mouth every 6 hours as needed for Pain 0 Active azithromycin 250 mg oral tablet (3 sources) Macrolide Antimicrobial Start: 03-10-2023 End: 04-13-2023 azithromycin (Zithromax) 250 MG tablet Indications: Other acute sinusitis, recurrence not specified 2 pills day #1, 1 pill day #2-#5 6 tablet 0 03/10/2023 04/13/2023 Discontinued (Therapy completed) clindamycin 20 mg/ml vaginal cream (1 source) Lincosamide Antibacterial Start: 12-20-2019 clindamycin (CLEOCIN ) 2 % vaginal cream Indications: Group B streptococcal infection Place vaginally nightly for 7 nights. 1 Tube 0 12/20/2019 Active clobetasol propionate 0.5 mg/ml topical cream (2 sources) Corticosteroid Start: 08-10-2016 clobetasol (TE MOVATE) 0.05 % cream Indications: Vaginal irritation Apply topically 2 times daily. 1 Tube 1 08/10/2016 Active clopidogrel 75 mg oral tablet (8 sources) P2Y12 Platelet Inhibitor Start: 05-26-2023 Clopidogrel Active M G PO May 26, 2023 12:00am clopidogrel (Wali vix) 75 MG tablet Take by mouth Daily. 0 Active Clopidogrel Bisu lfate (PLAVIX PO) Take by mouth 0 Active Famotidine (7 sources) Histamine-2 Receptor Antagonist Start: 05-26-2023 famotidine (Pepcid) Active PO May 26, 2023 12:00am famotidine (Pepc id) 10 MG tablet Take by mouth. 0 Active take 1 tablet by dayana th every twenty-four hours Pepcid 20 MG 1 tablet at bedtime as need ed Orally Once a day Active fluticasone propionate 0.05 mg/actuat metered dose nasal spray (1 source) Corticosteroid Start: 03-08-2023 take 1 spray(s) nasal route once daily Fluticasone Propionate 50 MCG/ACT 1 spray in each nostril Nasally Once a day for 14 Feb, Active ibuprofen 600 mg oral tablet (1 source) Nonsteroidal Anti-inflammatory Drug Start: 09-04-2019 Ibuprofen Active 600 MG PO Every 6 hours September 04, 2019 12:00am do not exceed 4 doses in a 24 hour period levothyroxine sodium 0.075 mg oral tablet (10 sources) l-Thyroxine Start: 05-26-2023 Levothyroxine Active MCG PO May 26, 2023 12:00am levothyroxine (S ynthroid, Levoxyl) 75 MCG tablet Take by mouth Daily before meals. 0 Active Levothyroxine So dium 75 MCG as directed Orally Active Levothyroxine So dium 75 MCG as directed Orally Active take 1 tablet by mouth once sejal y levothyroxine (SYNTHROID) 50 MCG tablet Take 50 mcg by mouth Daily 0 Active loratadine 10 mg oral tablet (2 sources) Start: 04-13-2023 End: 05-13-2023 take 1 tablet by mouth in the morning loratadine (Claritin) 10 MG tablet Indications: Dysfunction of both eustachian tubes Take 1 tablet (10 mg) by mouth in the morning. 30 tablet 2 04/13/2023 05/13/2023 Active LORazepam 1 mg oral tablet (12 sources) Benzodiazepine Start: 09-04-2019 End: 05-13-2023 take 1 tablet by mouth every eight hours as needed for anxiety and anxiety and anxiety LORazepam (Ativan) 1 MG tablet Indications: Anxiety Take 1 tablet (1 mg) by mouth every 8 (eight) hours if needed for anxiety Take by mouth. 90 tablet 2 04/13/2023 05/13/2023 Active Start: 06-27-2015 End: 04-13-2023 LORazepam (ATIVAN) 1 MG tabl et omeprazole 10 mg delayed release oral capsule (3 sources) Proton Pump Inhibitor take 1 capsule by mouth once daily omeprazole (PRILOSEC) 10 MG capsule Take 10 mg by mouth daily 0 Active Probiotic (3 sources) tiZANidine 2 mg oral tablet (4 sources) Central alpha-2 Adrenergic Agonist Start: 05-26-2023 Tizanidine Active MG PO May 26, 2023 12:00am Start: 03-14-2023 take 1 tablet by mouth once ti ZANidine (Zanaflex) 2 MG tablet Indications: Rib pain on left side Take 1 tablet (2 mg) by mouth every 12 (twelve) hours if needed for muscle spasms for up to 7 days 14 tablet 0 03/14/2023 Active Completed/Discontinued Medications Medication Drug Class(es) Dates Sig (Normalized) Sig (Original) acetaminophen 325 mg / HYDROcodone bitartrate 5 mg oral tablet (1 source) Opioid Agonist Start: 09-04-2019 End: 05-26-2023 take 1 tablet by mouth every four to six hours Hydrocodone-Acetam inophen (Hildreth) 5-325 mg Tablet Discontinued 1 TAB PO EVERY 4-6 HOURS 7 3 September 04, 2019 May 26, 2023 5:13pm atorvastatin 40 mg oral tablet (3 sources) HMG-CoA Reductase Inhibitor Start: 03-12-2020 take 1 tablet by mouth every twenty-four hours Atorvastatin Calcium 40 MG 1 tablet Orally Once a day for 30 day(s) Feb, Not-Taking/PRN Problems Problem Classification Problem Date Documented Da te Episodic/Chronic Abdominal pain (4 sources) Lower abdominal pain, unspecified; Translations: [Flank pain] Onset: 4 Episodic Administrative/social admission (4 sources) Encounter for issue of repeat prescription; Translations: [ENC FOR ISSUE REPEAT PRESCRIPTION] Onset: 3 Episodic Anxiety disorders (5 sources) Anxiety; Translations: [Anxiety disorder, unspecified] Onset: 3 01-24-2023 Chronic Aortic and peripheral arterial embolism or thrombosis (3 sources) 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; Translations: [Embolism and thrombosis of arteries of the lower extremities] Chronic Chronic kidney disease (3 sources) Chronic kidney disease stage 3; Translations: [Chronic kidney disease, stage 3 (moderate)] Chronic Disorders of lipid metabolism (4 sources) Mixed hyperlipidemia; Translations: [Mixed hyperlipidemia] Onset: 4 04-13-2023 Chronic Esophageal disorders (6 sources) Gastroesophageal reflux disease; Translations: [Gastro-esophageal reflux disease without esophagitis] Onset: 4 04-13-2023 Chronic Gastrointestinal hemorrhage (3 sources) Rectal hemorrhage; Translations: [Hemorrhage of anus and rectum] Onset: 4 03-14-2023 Episodic Genitourinary symptoms and ill-defined conditions (5 sources) Increased frequency of urination; Translations: [Dysuria] Onset: 2 Episodic Immunizations and screening for infectious disease (4 sources) Exposure to sexually transmissible disorder; Translations: [Encounter for immunization] Onset: 2 Episodic Inflammatory diseases of female pelvic organs (1 source) Infective vaginitis ; Translations: [Vaginal infection] Episodic Osteoarthritis (3 sources) Arthritis; Translations: [Unspecified osteoarthritis, unspecified site] Onset: 4 04-13-2023 Chronic Other acquired deformities (3 sources) Contracture of joint of right ankle; Translations: [Contracture, right ankle] Onset: 3 01-24-2023 Chronic Other aftercare (1 source) Other long term care phlebotomist (current) drug therapy; Translations: [OTH VAMP PRESSER CURRENT DRUG THERAPY] Onset: 3 Episodic Other circulatory disease (3 sources) Raynaud's disease; Translations: [Raynaud's syndrome without gangrene] Onset: 3 01-24-2023 Chronic Other ear and sense organ disorders (3 sources) Mixed conductive and sensorineural hearing loss, bilateral; Translations: [Mixed conductive and sensorineural hearing loss, bilateral] Onset: 3 01-24-2023 Chronic Other ear and sense organ disorders (3 sources) Sensorineural hearing loss; Translations: [Unspecified sensorineural hearing loss] Onset: 4 04-13-2023 Chronic Other female genital disorders (1 source) Vaginal irritation; Translations: [Vaginal irritation] Episodic Other lower respiratory disease (3 sources) Rib pain; Translations: [Pleurodynia] Onset: 4 Resolved: 4 03-14-2023 Episodic Other upper respiratory disease (3 sources) Chronic rhinitis; Translations: [Chronic rhinitis] Onset: 3 01-24-2023 Chronic Other upper respiratory infections (7 sources) Streptococcal sore throat; Translations: [Strep throat] Onset: 4 Episodic Otitis media and related conditions (5 sources) Dysfunction of eustachian tube; Translations: [Unspecified Eustachian tube disorder, unspecified ear] Onset: 4 04-13-2023 Episodic Peripheral and visceral atherosclerosis (8 sources) Peripheral vascular disease; Translations: [Peripheral vascular disease, unspecified] Onset: 3 01-24-2023 Chronic Residual codes; unclassified (3 sources) Tobacco user; Translations: [Tobacco use] Onset: 4 03-10-2023 Episodic Residual codes; unclassified (3 sources) Body mass index 20-24 - normal; Translations: [Body mass index (BMI) 24.0-24.9, adult] Onset: 4 03-10-2023 Episodic Substance-related disorders (1 source) Nicotine dependence, cigarettes, uncomplicated; Translations: [NICOTINE DEPEND CIGARETTES UNCOMP] Onset: 3 Chronic Superficial injury; contusion (1 source) Contusion of rib; Translations: [Contusion of unspecified front wall of thorax, initial encounter] 02-09-2023 Episodic Thyroid disorders (20 sources) Autoimmune thyroiditis; 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 Binaural hearing aid user. Patient reported her ears cleared up and her hearing aids are now too loud. Assessment Hearing aids connected to the fitting software and programmed to settings from 09/21/22. Patient requested a slight increase in volume from these settings; therefore, overall gain increased 3 additional steps. No feedback elicited in office. Patient able to increase and decrease the volume manually. Advised an updated hearing test for more precise hearing aid programming. Patient expressed understanding and agreement, but would like to schedule at a later date. Plan Follow up for hearing test and hearing aid recheck as needed. $50 Electronically signed by Isabelle Kenney 05/05/23 10:54 EST Normal [facility] Audiology Office/Clinic Note on 04-21-2023 Audiology Office/Clinic Note Discussion Patient was seen for a hearing aid recheck. Binaural hearing aid user. Patient was seen by Devan Noland, yesterday and updated hearing test and hearing aid settings completed. Patient was advised at that time that to see either ENT or her PCP due to suspected bilateral ear infections. Patient presented today stating she could not hear despite the change in her hearing aid settings from yesterday. Assessment Otoscopy revealed abnormal tympanic membranes and drainage in the right ear canal. Hearing aids were attempted to connect to the fitting software. When the left hearing aid did not connect, it was restarted. Prior to changing any hearing aid settings, patient reported she was hearing well again. Once hearing aids connected to the fitting software, it was shown that the left battery was low. During conversation, the battery . Once replaced, patient stated she was able to hear well again. No programming changes made today. Strongly recommended patient be seen by ENT or call her PCP when able to be seen for her suspected ear infections. Plan Follow up for further programming once ears are clear. No change today as no programming or changes were made. Electronically signed by Isabelle Kenney 04/21/23 14:02 EST Normal [facility] Audiology Office/Clinic Note on 04-20-2023 Audiology Office/Clinic Note Patient seen today for hearing aid recheck appointment. Patient was seen prior to this appointment for an updated audiological assessment. Audiological assessment suggested her hearing has changed. Hearing Aids: Hearing aids were reprogrammed for today's hearing test results. Patient was advised, if her otitis media resolves, the hearing aids will most likely be too loud. She was advised to call in for adjustments when that occurs. Plan: 1. Return for adjustments as needed. Electronically signed by No Donato 04/20/23 16:01 EST Normal [facility] Audiology Office/Clinic Note History: Patient seen today for an audiological assessment. She reported a significant change in hearing since a recent sinus infection that is not resolving. Patient's most recent hearing test was completed in 2018. Results suggested a mild sloping to severe sensorineural hearing loss, bilaterally. Patient has history of otitis media. She also reported her left ear has been itching and is getting worse. She is interested in being fit with a pair of earplugs for showering. Otoscopy: Right Ear:Abnormal tympanic membrane Left Ear: Abnormal tympanic membrane. Possible green drainage. Tympanometry: Right Ear: Type B tympanogram, suggesting abnormal middle ear function. Left Ear: Type B tympanogram, suggesting abnormal middle ear function. Test Results: Right Ear:Pure tone audiometry suggested a moderately severe to profound mixed hearing loss. Word recognition score was good at 80%. Left Ear: Pure tone audiometry suggested a moderately severe to profound mixed hearing loss. Word recognition score was good at 84% Summary: Results were reviewed with patient/family. Patient is a candidate for amplification. Patient was encouraged to schedule with ENT due to abnormal tympanometry, decrease in hearing, mixed hearing loss and itchy ear. She prefers to follow up with her family PCP for treatment. Plan: 1. Follow up with hearing aid recheck. 2. She was counseled to schedule earmold impressions for swim plugs following medical management of her ears. Electronically signed by No Donato 04/20/23 17:07 EST Normal [facility] Audiology Office/Clinic Note on 04-05-2023 Audiology Office/Clinic Note Patient seen today for hearing aid recheck appointment. She reported she recently had a sinus infection and has not been able to hear well. She would like to be able to hear better with her hearing aids. She has binaural [employer] hearing aids that were fit in a practice in [place]. Patient has history of bilateral middle ear effusion. She was seen by ENT in this past year but decided not to proceed with PE tubes. Hearing Aids: Hearing aids were cleaned and wax traps were replaced. Listening check was good. Overall gain was increased x4. Patient reported she was able to hear better.Otoscopy suggested dull tympanic membranes, bilaterally. Plan: 1. Return for updated hearing test and further adjustments if necessary. $50 hearing aids out of warranty. Electronically signed by Rebecca No Hartman 04/05/23 16:28 EST Normal [facility] COVID + FLU Quick Testingon 03-08-2023 SARS-CoV-2 (COVID-19) RNA ISABELA+probe Ql (Unsp spec) Negative [facility] Other COVID + FLU Quick Testing Negative [facility] Other Urinalysis - AUTOMATEDon Appearance (U) clear [employer] Other Bilirubin Ql (U) Negative [employer] Other Color (U) yellow [facility] Other Glucose Ql (U) Negative [employer] Other Hemoglobin Ql (U) Negative [employer] Other Ketones Ql (U) Negative [employer] Other Leukocyte esterase Test strip Ql (U) Negative [facility] Other Nitrite Ql (U) Negative [employer] Other pH (U) 5.5 [pH] [facility] Other Protein Ql (U) Negative [employer] Other Specific gravity (U) [Rel density] >1.030 [facility] Other Urobilinogen (U) [Mass/Vol] 0.2 mg/dL [facility] Other Urinalysis - AUTOMATED [facility] Other Audiology Office/Clinic Note on 09-21-2022 Audiology Office/Clinic Note Patient seen today for hearing aid recheck appointment. Patient reported the right button was not communicating with the left hearing aid. Both hearing aids were cleaned, wax traps and domes were replaced. Listening check was good. Batteries were replaced. Following all of this changes, the right hearing aid was able to communicate with the left hearing aid. Plan: Return as needed. $50 for recheck. Electronically signed by [place] No Hartman 09/21/22 17:55 EDT Normal [facility] Urinalysis - AUTOMATEDon Appearance (U) cloudy [employer] Other Bilirubin Ql (U) Negative [employer] [facility] [employer] Other Color (U) yellow [facility] Other Glucose Ql (U) Negative [employer] Other Hemoglobin Ql (U) Negative [employer] Other Ketones Ql (U) Negative [employer] Other Leukocyte esterase Test strip Ql (U) trace [facility] Other Nitrite Ql (U) Negative [employer] Other pH (U) 6.0 [pH] [facility] Other Protein Ql (U) Negative [employer] Other Specific gravity (U) [Rel density] 1.025 [facility] Other Urobilinogen (U) [Mass/Vol] 0.2 E.U d/l [facility] Other Urinalysis - AUTOMATED [facility] Other Otolaryngology Office/Clinic Noteon 05-26-2022 Otolaryngology Office/Clinic [...] No Urinary Incontinence: No Vaginal discharge: No Hematologic/Lymphat ic Musculoskeletal Neurological Psychiatric Respiratory Apnea: No Cough: No Hemoptysis: No Other Respiratory: No Shortness_of_breath : No Snoring: No Sputum production: No Wheezing: No Skin Physical Exam Additional Vitals No qualifying data available. Overall:[Communicat ion mode is clear, normal] [Appearance- no acute distress, appears stated age and is well nourished] Assistive device:[ none] Head:[normocephalic , no trauma, lesions or asymmetry] Ocular appearance:[ [...] reviewed the patient?s medication list for medication interactions/contra indications and/or for upcoming procedures: [yes or no] [...] Sibling. Heart attack: Father. Electronically signed by Amber RODRIGUEZ Jayla Anusha 05/28/22 22:27 EDT Normal [facility] Otolaryngology Office/Clinic Noteon 05-11-2022 Otolaryngology Office/Clinic Note [...] No Urinary Incontinence: No Vaginal discharge: No Hematologic/Lymphat ic Musculoskeletal Neurological Psychiatric Respiratory Apnea: No Cough: No Hemoptysis: No Other Respiratory: No Shortness_of_breath : No Snoring: No Sputum production: No Wheezing: No Skin Physical Exam Additional Vitals No qualifying data available. Overall:[Communicat ion mode is clear, normal] [Appearance- no acute distress, appears stated age and is well nourished] Assistive device:[ none] Head:[normocephalic , no trauma, lesions or asymmetry] Ocular appearance:[ [...] reviewed the patient?s medication list for medication interactions/contra indications and/or for upcoming procedures: [yes or no] [...] Sibling. Heart attack: Father. Electronically signed by Amber RODRIGUEZ Jayla Almodovarn 05/14/22 15:32 EDT Normal [facility] SARS-CoV-2 (COVID-19) RNA ISABELA+probe Ql (Unsp spec) Detected Critically abnormal NOT DETECTED [facility] Comment on above: Result Comment: This test is not yet approved or cleared by the [place] FDA. When there are no FDA-approved or cleared tests available, and other criteria are met, FDA can make tests available under an emergency access mechanism called an Emergency Use Authorization (EUA). The EUA for this test is supported by the Environmental Lawyer of Health and Human Service's declaration that [...] longer be used). Performed By: #### C VDTBH #### [facility] [address] [place] [address] Dr. Dirk Patton ER URINE PROFILEon 2 Bilirubin Ql (U) Negative Normal NEGATIVE [facility] Comment on above: Performed By: #### E RUR #### [facility] [address] [place] [address] Dr. Dirk Patton Clarity (U) CLEAR Normal CLEAR [facility] Comment on above: Performed By: #### E RUR #### [facility] [address] [place] [address] Dr. Dirk Patton Color (U) YELLOW Normal YELLOW [facility] Comment on above: Performed By: #### E RUR #### [facility] [address] [place] [address] Dr. Dirk PATEL A micrscopic examination will be performed if indicated. Normal [facility] Comment on above: Performed By: #### E RUR #### [facility] [address] [place] [address] Dr. Dirk Patton Glucose Ql (U) Negative Normal NEGATIVE [facility] Comment on above: Performed By: #### E RUR #### [facility] [address] [place] [address] Dr. Dirk Patton Hemoglobin Ql (U) Negative Normal NEGATIVE [facility] Comment on above: Performed By: #### E RUR #### [facility] [address] [place] [address] Dr. Dirk Patton Ketones Ql (U) Negative Normal NEGATIVE The [facility] Comment on above: Performed By: #### E RUR #### [facility] [address] [place] [address] Dr. Dirk Patton LEUKOCYTES Negative Normal NEGATIVE [facility] Comment on above: Performed By: #### E RUR #### [facility] [address] [place] [address] Dr. Dirk Patton Nitrite Ql (U) Negative Normal NEGATIVE [facility] Comment on above: Performed By: #### E RUR #### [facility] [address] [place] [address] Dr. Dirk Patton pH (U) 6.0 [pH] Normal 5-9 [facility] Comment on above: Performed By: #### E RUR #### [facility] [address] [place] [address] Dr. Dirk Patton SPEC GRAVITY 1.015 Normal 1.005-<=1.025 [facility] Comment on above: Performed By: #### E RUR #### [facility] [address] [place] [address] Dr. Dirk Patton UA PROTEIN Negative Normal NEGATIVE/ TRACE [facility] Comment on above: Performed By: #### E RUR #### [facility] [address] [address] [address] Dirk Patton UR MICRO IND NOT INDICATED Normal [facility] Comment on above: Performed By: #### E RUR #### [facility] [address] [address] [address] Dirk Patton Urobilinogen Qn (U) 0.2 {Jaior'U}/dL Normal 0.2 - 1. 0 [facility] Comment on above: Performed By: #### E RUR #### [facility] [address] [address] [address] Dirk Patton XR LSPINE 2_3 VIEWSon [...] by: KRYSTAL WEST Date: 2021-08-20 08:50 Normal [facility] US carotid doppler BIon 03-2 US carotid doppler BI [facility] Main [place] [address] [place] [address] Ultrasound Report Signed Patient: Daphne Fermin MR#: [id number] 6 : 1945 Acct:[id number] Age/Sex: 75 / F ADM Date: 05/22/20 Loc: [facility] Room: Type: [facility] Attending Dr: Montana Mora MD Ordering [...] Montana Mora MD05/23/2020 4:31 PM Dictation Location: RAD-DOC-04 Tech: Dorie Enid Transcribed By: HAIDER 05/23/201630 Dictated By: Montana Mora MD 05/23/20 163 Signed By: 05/23/20 163 [facility] Cult,Genitalon 05-18-2020 Cult,Genital Specimen Description .VAGINA Special Requests NOT REPORTED Culture NORMAL URO-GENITAL KARLENE NEGATIVE FOR NEISSERIA GONORRHOEAE NEGATIVE FOR BETA HEMOLYTIC STREPTOCOCCI Report Status FINAL 05/18/[address] [facility] Comment on above: Performed By: #### G #### [address] [id number] Sheet Metal Apprentice: Tim Blair MD [facility] [address] [place] [address] Sheet Metal Apprentice: Ender Thomas MD Cult,Urineon 05-17-2020 Cult,Urine Specimen Description .CLEAN CATCH URINE Special Requests NOT REPORTED Culture NO GROWTH Report Status FINAL 05/16/[address] [facility] Comment on above: Performed By: #### U #### [address] [id number] Sheet Metal Apprentice: Tim Blair MD [facility] [address] [place] [address] Sheet Metal Apprentice: Ender Thomas MD Chlamydia/GC,DNA Ampon 05-16 Chlamydia Probe Negative Normal [facility] Comment on above: Result Comment: CHLA [...] nucleic acid target. Performed By: #### S WC #### [address] [id number] Sheet Metal Apprentice: Tim Blair MD Gonorrhea Probe Negative Normal [facility] Comment on above: Result Comment: NEIS [...] nucleic acid target. Performed By: #### S WC #### [facility] [address] [place] [address] Sheet Metal Apprentice: Tim Blair MD Microscopic Urinalysison Amorphous, UA NOT REPORTED None [employer] Work Phone: Bacteria, UA 1+ Abnormal None [facility] Work Phone: Casts UA NOT REPORTED /LPF [employer] Work Phone: Crystals, UA NOT REPORTED None /HPF angelMD [facility] Work Phone: Epithelial Cells UA 0 TO 2 [employer] Work Phone: Interpretation and review of laboratory results Abnormal [employer] Work Phone: Mucus, UA NOT REPORTED None [employer] Phone: Other Observations UA NOT REPORTED NOT REQ. [employer] Work Phone: RBC (U) [#/Vol] None [employer] [facility] Work Phone: Renal Epithelial, UA NOT REPORTED 0 /HPF [employer] Work Phone: Trichomonas, UA NOT REPORTED None angel[employer] Work Phone: WBC, UA 10 TO 20 [employer] Work Phone: Yeast, UA NOT REPORTED None [facility] Work Phone: - [employer] Work Phone: UA w/Reflex Cultureon 2020 Acetoacetic Acid,Ur Negative Normal NEG [facility] Comment on above: Performed By: #### U MICAO, UAX #### [facility] [address] [place] [address] Sheet Metal Apprentice: Ender Thomas MD Bilirubin, SemiQt,Ur Negative Normal NEG [facility] Comment on above: Performed By: #### U MICAO, UAX #### [facility] [address] [place], [place] [phone] Sheet [employer] Apprentice: Ender Thomas MD Color (U) YELLOW Normal YEL [facility] Comment on above: Performed By: #### U MICAO, UAX #### [facility] [address] [place], [place] [phone] Sheet Metal Apprentice: Ender Thomas MD Glucose Ql (U) Negative Normal NEG [facility] Comment on above: Performed By: #### U MICAO, UAX #### [facility] [address] [place], [place] [phone] Sheet Metal Apprentice: Ender Thomas MD Hemoglobin, Ur Negative Normal NEG [facility] Comment on above: Performed By: #### U MICAO, UAX #### [facility] [address] [place] [address] Dr. [place], [place] [id number] Sheet [employer] Apprentice: Ender Thomas MD Leukocyte esterase Test strip Ql (U) MODERATE Abnormal NEG [facility] Comment on above: Performed By: #### U MICAO, UAX #### [address] [place], [place] [phone] Sheet Metal Apprentice: Ender Thomas MD Nitrite,Ur Negative Normal NEG [facility] Comment on above: Performed By: #### U MICAO, UAX #### [facility] [address] [place], [place] [phone] Sheet Metal Apprentice: Ender Thomas MD pH (U) 6.0 [pH] Normal 5.0-9.0 [facility] Comment on above: Performed By: #### U MICAO, UAX #### [facility] [address] [place], [place] [phone] Sheet [employer] Apprentice: Ender Thomas MD Protein Ql (U) Negative Normal NEG [facility] Comment on above: Performed By: #### U MICAO, UAX #### [facility] [address] [place], [place] [phone] Sheet [employer] Apprentice: Ender Thomas MD Specific gravity (U) [Rel density] 1.020 Normal 1.010-1.020 [facility] Comment on above: Performed By: #### U MICAO, UAX #### [facility] [address] [place], [place] [phone] Sheet [employer] Apprentice: Ender Thomas MD Turbidity CLEAR Normal CLEAR [facility] Comment on above: Performed By: #### U MICAO, UAX #### [facility] [address] [place], [place] [phone] Sheet [employer] Apprentice: Ender Thomas MD Urobilinogen,Ur Normal Normal NORM [facility] Comment on above: Performed By: #### U MICAO, UAX #### [facility] [address] [place], [place] [phone] Sheet [employer] Apprentice: Ender Thomas MD Comment NOT REPORTED Normal [facility] Comment on above: Performed By: #### U MICAO, UAX #### [facility] [address] [place], [place] [phone] Sheet [employer] Apprentice: Ender Thomas MD Urinalysis Reflex to Culture on 05-15-2020 Bilirubin Urine Negative NEGATIVE [facility] Work Phone: Color, UA YELLOW YELLOW [facility] Work Phone: Glucose, Ur Negative NEGATIVE [facility] Work Phone: Interpretation and review of laboratory results Abnormal [facility] Work Phone: Ketones Ql (U) Negative NEGATIVE [facility] Work Phone: Leukocyte esterase Test strip Ql (U) MODERATE Abnormal NEGATIVE [facility] Work Phone: Nitrite, Urine Negative NEGATIVE [facility] Work Phone: pH, UA 6.0 [facility] Work Phone: Protein (U) [Mass/Vol] Negative NEGATIVE [facility] [employer] Phone: Specific [place], UA 1.020 [facility] [employer] Phone: Turbidity UA CLEAR CLEAR [facility] [employer] Phone: Urinalysis Comments NOT REPORTED [facility] [employer] Phone: Urine Hgb Negative NEGATIVE [facility] [employer] Phone: Urobilinogen, Urine Normal Normal [facility] [employer] Phone: Urinalysis,Microon 1 ----- Normal [facility] Comment on above: Performed By: #### U MICAO, UAX #### [facility] [address] [place] [address] [place] [address] Sheet Metal Apprentice: Ender Thomas MD Bacteria LM.HPF (Urine sed) [#/Area] 1+ Abnormal [facility] Comment on above: Performed By: #### U MICAO, UAX #### [address] [place] [address] Sheet Metal Apprentice: Ender Thomas MD Epithelial cells LM.HPF (Urine sed) [#/Area] 0 TO 2 Normal 0-25 [facility] Comment on above: Performed By: #### U MICAO, UAX #### [facility] [address] [place] [address] [place] [address] Sheet Metal Apprentice: Ender Thomas MD RBC (U) [#/Vol] None Normal 0-2 [facility] Comment on above: Performed By: #### U MICAO, UAX #### [address] [place] [address] Sheet Metal Apprentice: Ender Thomas MD WBC (U) [#/Vol] 10 TO 20 Normal 0-5 [facility] Comment on above: Performed By: #### U MICAO, UAX #### [facility] [address] [place] [address] Sheet [employer] Apprentice: Ender hTomas MD Amorphous sediment LM Ql (Urine sed) NOT REPORTED Normal NONE [facility] Comment on above: Performed By: #### U MICAO, UAX #### [facility] [address] [place], [place] [phone] Sheet [employer] Apprentice: Ender Thomas MD Casts LM.LPF (Urine sed) [#/Area] NOT REPORTED Normal [facility] Comment on above: Performed By: #### U MICAO, UAX #### [facility] [address] [place], [place] [phone] Sheet [employer] Apprentice: Ender Thomas MD Crystals LM Nom (Urine sed) NOT REPORTED Normal NONE [facility] Comment on above: Performed By: #### U MICAO, UAX #### [facility] [address] [place] [address] Sheet [employer] Apprentice: Ender Thomas MD Epithelial, Renal NOT REPORTED Normal 0 [facility] Comment on above: Performed By: #### U MICAO, UAX #### [facility] [address] [place] [address] Sheet [employer] Apprentice: Ender Thomas MD Mucus Strands NOT REPORTED Normal NONE [facility] Comment on above: Performed By: #### U MICAO, UAX #### [facility] [address] [place] [address] Sheet Metal Apprentice: Ender Thomas MD Other Observations NOT REPORTED Normal NREQ [facility] Comment on above: Performed By: #### U MICAO, UAX #### [facility] [address] [place], [place] [phone] Sheet [employer] Apprentice: Ender Thomas MD Trichomonas NOT REPORTED Normal NONE [facility] Comment on above: Performed By: #### U MICAO, UAX #### [facility] [address] [place], [place] [phone] Sheet Metal Apprentice: Ender Thomas MD Yeast LM Ql (Urine sed) NOT REPORTED Normal NONE [facility] Comment on above: Performed By: #### U MICAO, UAX #### [facility] [address] [place] [address] Sheet [employer] Apprentice: Ender Thomas MD US ankle/arm indiceson 04-03 US ankle/arm indices [facility] [place] [address] [place] [address] Ultrasound Report Signed Patient: Daphne Fermin MR#: [id number] 6 : 1945 Acct:[id number] Age/Sex: 74 / F ADM Date: 04/03/20 Loc: Room: Type: [facility] Attending Dr: Montana Mora MD Ordering Provider: [...] Montana Mora MD04/03/2020 1:38 PM Dictation Location: [address] [address] Tech: Daphne Hernandez Transcribed By: HAIDER 04/03/20 1338 Dictated By: Montana Mora MD 04/03/201329 Signed By: 04/03/20 1338 Normal [facility] Cult,Genitalon 12-20-2019 Cult,Genital Specimen Description .VAGINA Special Requests NOT REPORTED Culture STREPTOCOCCI, BETA HEMOLYTIC GROUP B MODERATE GROWTH NORMAL URO-GENITAL KARLENE NEGATIVE FOR NEISSERIA GONORRHOEAE Report Status FINAL 12/20/2019 Normal [facility] Comment on above: Performed By: #### G EC #### [facility] [address] [place] [address] Sheet Metal Apprentice: Tim Blair MD [facility] [address] [place] [address] Sheet Metal Apprentice: Juarez Skinner MD Vital Signs Date Time Vital Sign Value Performing Clinician Facility 05-26-2023 17:24-0400 Diastolic blood pressure 68 mm[Hg] [facility] 05-26-2023 17:24-0400 Systolic blood pressure 120 mm[Hg] [facility] 05-26-2023 17:06-0400 Body height 158.75 cm [facility] 05-26-2023 17:06-0400 Body mass index (BMI) [Ratio] 23.3 kg/m2 [facility] 05-26-2023 17:06-0400 Body temperature 97.4 [degF] [facility] 05-26-2023 17:06-0400 Body weight 58.96 kg [facility] 05-26-2023 17:06-0400 Heart rate 79 /min [facility] 05-26-2023 17:06-0400 Respiratory rate 16 /min [facility] 05-26-2023 17:06-0400 SaO2% (BldA) [Mass fraction] 97 % [facility] 04-13-2023 08:48-0500 Body height 158.8 cm Ruth Humphries CURING SUPERVISOR Work Phone: [facility] 04-13-2023 08:48-0500 Body mass index (BMI) [Ratio] 23.72 kg/m2 Ruth Humphries CURING SUPERVISOR Work Phone: [facility] 04-13-2023 08:48-0500 Body temperature 97.3 [degF] Ruth Humphries CURING SUPERVISOR Work Phone: [facility] 04-13-2023 08:48-0500 Body weight 59.78 kg Ruth Humphries CURING SUPERVISOR Work Phone: [facility] 04-13-2023 08:48-0500 Diastolic blood pressure 78 mm[Hg] Ruth Humphries CURING SUPERVISOR Work Phone: [facility] 04-13-2023 08:48-0500 Heart rate 76 /min Ruth Humphries CURING SUPERVISOR Work Phone: [facility] 04-13-2023 08:48-0500 Respiratory rate 18 /min Ruth Humphries CURING SUPERVISOR Work Phone: [facility] 04-13-2023 08:48-0500 SaO2% (BldA) [Mass fraction] 99 % Ruth Humphries CURING SUPERVISOR Work Phone: [facility] 04-13-2023 08:48-0500 Systolic blood pressure 122 mm[Hg] Ruth Humphries CURING SUPERVISOR Work Phone: [facility] 03-08-2023 16:15-0500 Body height 158.75 cm Pao Harrison Other [facility] 03-08-2023 16:15-0500 Body mass index (BMI) [Ratio] 23.83 kg/m2 Pao Harrison Other [facility] [employer] Other 03-08-2023 16:15-0500 Body temperature 98.3 [degF] Pao Harrison Other [employer] Other 03-08-2023 16:15-0500 Body weight 60.06 kg Pao Harrison Other [employer] Other 03-08-2023 16:15-0500 Body weight 60.05 kg [facility] 03-08-2023 16:15-0500 Respiratory rate 18 /min Pao Harrison Other [employer] [facility] [employer] Other 03-08-2023 16:15-0500 SaO2% (BldA) [Mass fraction] 96 % Paomoses Terry Other [employer] Other 12-02-2022 14:45-0400 Body height 158.75 cm Reyna Santos Other [employer] Other 12-02-2022 14:45-0400 Body mass index (BMI) [Ratio] 23.9 kg/m2 Reyna Santos Other [employer] Other 12-02-2022 14:45-0400 Body temperature 98.1 [degF] Reyna Santos Other [employer] Other 12-02-2022 14:45-0400 Body weight 60.24 kg Reyna Santos Other [employer] Other 12-02-2022 14:45-0400 Diastolic blood pressure 88 mm[Hg] Reyna Santos Other [employer] Other 12-02-2022 14:45-0400 Respiratory rate 18 /min Reyna Santos Other [employer] Other 12-02-2022 14:45-0400 SaO2% (BldA) [Mass fraction] 100 % Reyna Santos Other [employer] Other 12-02-2022 14:45-0400 Systolic blood pressure 152 mm[Hg] Reyna Santos Other [employer] Other 07-29-2022 16:15-0400 Body height 158.75 cm Nuzhat Liz Other [employer] Other 07-29-2022 16:15-0400 Body mass index (BMI) [Ratio] 23.22 kg/m2 Nuzhat Liz Other [employer] Other 07-29-2022 16:15-0400 Body temperature 97.7 [degF] Nuzhat Liz Other [employer] Other 07-29-2022 16:15-0400 Body weight 58.51 kg Nuzhat Liz Other [employer] Other 07-29-2022 16:15-0400 Respiratory rate 18 /min Nuzhat Liz Other [employer] Other 07-29-2022 16:15-0400 SaO2% (BldA) [Mass fraction] 92 % Nuzhat Liz Other [employer] Other Encounters Encounter Date Encounter Type Care Provider Facility Start: 05-31-2023 End: 05-31-2023 ambulatory RUTH HUMPHRIES Not Available Start: 05-26-2023 End: 05-26-2023 ambulatory [facility] Work Phone: Start: 05-26-2023 End: 05-26-2023 Patient encounter procedure [facility] Work Phone: Start: 05-05-2023 End: 2023 ambulatory [facility] DO Facility:[facility] Start: 04-21-2023 End: 04-22-2023 ambulatory Isabelle Jones AuD Facility:[facility] Start: 04-20-2023 End: 04-21-2023 ambulatory [facility] DO Facility:[facility] Start: 04-13-2023 Bamboo flowsheet Ruth Humphries CURING SUPERVISOR Work Phone: [facility] Start: 04-13-2023 Bamboo flowsheet Ruth Aichholz CURING SUPERVISOR Work Phone: [facility] Start: 04-13-2023 End: 04-13-2023 ambulatory RUTH AICHHOLZ Not Available Start: 04-13-2023 End: 04-13-2023 Office outpatient visit 25 minutes Ruth Aichholz CURING SUPERVISOR Work Phone: [facility] Comment on above: Dysfunction of both eustachian tubes (Primary Dx); PVD (peripheral vascular disease) (CMS/HCC); Anxiety; Mixed hyperlipidemia (CMS/HCC) Start: 04-05-2023 End: 04-06-2023 ambulatory No Fernandez AuD Facility:[facility] Start: 03-14-2023 End: 03-14-2023 ambulatory RUTH AICHHOLZ Not Available Start: 03-10-2023 End: 03-10-2023 ambulatory RUTH AICHHOLZ Not Available Start: 03-08-2023 End: 03-08-2023 ambulatory Pao Harrison Other [employer] Other Start: 03-08-2023 Office outpatient vi sit 15 minutes Paomoses Hassanb [facility] Start: 03-08-2023 End: 03-08-2023 Patient encounter procedure [facility] Work Phone: Start: 01-24-2023 End: 01-24-2023 ambulatory RUTH AICHHOLZ Not Available Start: 12-02-2022 End: 12-02-2022 ambulatory Reyna Santos Other [employer] Other Start: 12-02-2022 Office outpatient vi sit 15 minutes Reyna Santos [facility] Start: 11-24-2022 ambulatory Jayla brown PA-C Facility:[facility] Start: 09-21-2022 End: 09-22-2022 ambulatory No Fernandez AuD Facility:[facility] Start: 07-29-2022 End: 07-29-2022 ambulatory Nuzhat Liz Other [facility] [employer] Other Start: 07-29-2022 Office outpatient vi sit 15 minutes Nuzhat Liz [facility] Start: 07-23-2022 End: 07-23-2022 ambulatory BENEDICT HARRIS . Facility:[facility]1 Start: 05-26-2022 End: 05-27-2022 [facility] Start: 05-11-2022 End: 05-12-2022 [facility] Start: 12-08-2021 End: 12-09-2021 [facility] Start: 12-08-2021 End: 12-08-2021 Subsequent hospital visit by physician Sr Carlitos MIRANDA Work Phone: [facility] Laboratory Comment on above: Dysuria Start: 08-21-2021 End: 08-21-2021 ambulatory ULICES CLARKE Facility:[facility]1 Start: 08-20-2021 End: 08-20-2021 ambulatory ULICES CLARKE Facility:[facility] Start: 05-15-2020 End: 05-16-2020 Patient encounter procedure [facility] Start: 05-15-2020 End: 05-15-2020 Subsequent hospital visit by physician Sr Urbina [facility] Laboratory Comment on above: Frequency of urinati on; Vaginal infection; STD exposure Start: 12-17-2019 End: 12-18-2019 Patient encounter procedure [facility] Start: 12-17-2019 End: 12-17-2019 Subsequent hospital visit by physician Sr Carlitos MASON Laboratory Comment on above: Vaginal irritation Procedures Date Procedure Procedure Detail Performing Clinician Start: 05-15-2020 Urinalysis microscop ic only Jarrod Bradley Work Phone: Start: 05-15-2020 Urnls dip stick/tabl et rgnt auto w/o microscopy Jarrod Bradley Work Phone: Start: 12-17-2019 Cul bact xcpt urine blood/stool aerobic isol JARROD BRADLEY Plan of Treatment Date Care Activity Detail Author Start: 10-26-2023 Medicare Annual Wellness (AWV) Medicare Annual Wellness (AWV) [facility] Start: 07-12-2023 End: 07-12-2023 Patient encounter procedure 07/12/2023 9:20 AM EDT Office Visit [facility] [address] [place] [phone] Ruth Humphries, CURING SUPERVISOR [address] [place] [phone] [facility] Start: 04-26-2023 End: 04-26-2023 Patient encounter procedure 04/26/2023 9:20 AM EST Office Visit [facility] [address] [place] [phone] Ruth Humphries, CURING SUPERVISOR [address] [place] [phone] [facility] Start: 09-28-2021 Influenza vaccination Flu vaccine (# 1) [facility] Start: 09-04-2021 DTaP/Tdap/Td vaccine (2 - Td or Tdap) DTaP/Tdap/Td vaccine (2 - Td or Tdap) [facility] Start: 09-04-2021 DTaP/Tdap/Td vaccine (2 - Td) DTaP/Tdap/Td vaccine (2 - Td) [place], [place] Start: 10-30-2019 Influenza vaccination Flu vaccine (# 1) [place], [place] Start: 08-20-2018 Annual Wellness Visi t (AWV) Annual Wellness Visit (AWV) [facility] Start: 05-07-2011 Pneumococcal 65+ yea rs Vaccine (1 of 1 - PPSV23) Pneumococcal 65+ years Vaccine (1 of 1 - PPSV23) [place], [place] Start: 2001 Screening for osteoporosis DEXA (modify frequency per FRAX score) [facility] Start: 1996 Screening for malign ant neoplasm of breast Breast cancer screen [place], [place] Start: 1996 Screening for malign ant neoplasm of colon Colon cancer screen colonoscopy [place], [place] Start: 1996 Shingles Vaccine (1 of 2) Shingles Vaccine (1 of 2) [facility] Start: 05-07-1991 Screening for malign ant neoplasm of colon [facility] Start: 1986 Lipid panel [facility] Start: 1962 COVID-19 Vaccine (1) COVID-19 Vaccin e (1) [facility] Phone: Start: 1958 Depression Screen Depression Screen [facility] Start: 1952 Pneumococcal 65+ yea rs Vaccine (1 - PCV) Pneumococcal 65+ years Vaccine (1 - PCV) [facility] Start: 1946 COVID-19 Vaccine (#1) COVID-19 Vacci ne (#1) [facility] Start: 1946 TSH Qn TSH testing [place], [place] End: 05-15-2020 C.trachomatis N.gonorrhoeae DNA C.trachomatis N.gonorrhoeae DNA Microbiology Routine Once for 1 Occurrences starting 05/15/2020 until 05/15/2020 [facility] Phone: Comment on above: Once for 1 Occurrenc es starting 05/15/2020 until 05/15/2020 C.trachomatis N.gonorrhoeae DNA C.trachomatis N.gonorrhoeae DNA Microbiology Routine 05/15/2020 11:57 AM EDT [facility] [employer] Phone: End: 12-17-2019 Culture, Genital Culture, Genital Microbiology Routine Vaginal irritation 1 Occurrences starting 12/17/2019 until 12/17/2019 [place], [place] Comment on above: 1 Occurrences starti ng 12/17/2019 until 12/17/2019 Culture, Genital [place], [place] End: 05-15-2020 Culture, Genital Culture, Genital Microbiology Routine Vaginal infection STD exposure 1 Occurrences starting 05/15/2020 until 05/15/2020 [facility] Comment on above: 1 Occurrences starti ng 05/15/2020 until 05/15/2020 End: 05-15-2020 Culture, Urine Culture, Urine Microbiology Routine Once for 1 Occurrences starting 05/15/2020 until 05/15/2020 [email or web address] Phone: Comment on above: Once for 1 Occurrenc es starting 05/15/2020 until 05/15/2020 Culture, Urine Culture, Urine Microbiology Routine 05/15/2020 12:54 PM EDT [email or web address] Phone: End: 12-08-2021 Culture, Urine [employer] Phone: Comment on above: 1 Occurrences starti ng 12/08/2021 until 12/08/2021 Immunizations Immunization Date Immunization Notes Care Provider Niurka mcallister 09-05-2011 tetanus toxoid, redu latisha diphtheria toxoid, and acellular pertussis vaccine, adsorbed [place], [place] Payers Date Payer Category Payer Unknown [id number] [id number] [id number] 2014 Unknown 2011 Medicare [id number] 1959 Medicare [id number] 1959 Unknown [id number] 1945 Unknown [id number] 2.16.8 40.1.083579.3.579.2.173 1945 Unknown [id number] 2.16.8 40.1.580018.3.579.2.173 1945 Unknown [id number] 2.16.8 40.1.536494.3.579.2.174 1945 Unknown [id number] 2.16.84 0.1.131143.3.579.2.593 1945 Unknown [id number] 2.16.84 0.1.711766.3.579.2.593 1945 Unknown [id number] 2.16.84 0.1.424203.3.579.2.593 1945 Unknown [id number] 2.16. 840.1.756488.3.579.2.196 1945 Unknown [id number] 2.16. 840.1.998413.3.579.2.196 1945 Unknown [id number] 2.16. 840.1.431167.3.579.2.196 1946 Unknown [id number] 2.16. 840.1.870375.3.579.2.196 1946 Unknown [id number] 2.16. 840.1.951148.3.579.2.196 1945 Unknown [id number] 2.16 840.1.735513.3.579.2.196 1946 Unknown [id number] 2.16. 840.1.415620.3.579.2.196 1945 Unknown [id number] 2.16. 840.1.365391.3.579.2.196 1945 Unknown [id number] 2.16. 840.1.332629.3.579.2.196 1945 Unknown [id number] 2.16. 840.1.584114.3.579.2.196 1945 Unknown [id number] 2.16.84 0.1.833209.3.579.2.1259 1945 Unknown [id number] 2.16.84 0.1.018509.3.579.2.1259 1945 Unknown [id number] 2.16.84 0.1.725012.3.579.2.1259 1945 Unknown [id number] 2.16.84 0.1.112317.3.579.2.1259 1945 Unknown [id number] 2.16.840 .1.296033.3.579.2.1259 Self-pay Social History Date Type Detail Facility Start: 12-17-2019 End: 01-24-2023 Tobacco smoking status NHIS [facility] Start: 12-17-2019 End: 12-08-2021 Tobacco use and exposure Never used [facility] [employer] [place] Start: 12-17-2019 End: 12-08-2021 Alcohol intake Current drinker of alcohol (finding) [place], [place] Start: 1945 Sex Assigned At Not on file [place], [place] Start: 12-08-2021 End: 01-24-2023 Alcohol intake [facility] Start: 01-24-2023 End: 04-13-2023 Sex Assigned At [facility] History of tobacco use Cigarette Smoker [facility] Start: 01-24-2023 Tobacco use and exposure User of smokeless tobacco [facility] Start: 04-13-2023 Alcohol intake Ex-drinker (finding) [facility] Within the last year , have you been afraid of your partner or ex-partner? No [facility] Do you belong to any clubs or organizations such as gnosticism groups, unions, fraternal or athletic groups, or school groups? Yes [facility] Are you now , , , , never or living with a partner? [facility] How often to you hav e a drink containing alcohol? Monthly or less [facility] How many standard dr inks containing alcohol do you have on a typical day? 1 or 2 [facility] How often do you hav e 6 or more drinks on 1 occasion? Never [facility] How hard is it for y ou to pay for the very basics like food, housing, medical care, and heating Not hard at all [facility] Do you feel stress - tense, restless, nervous, or anxious, or unable to sleep at night because your mind is troubled all the time - these days [OSQ] Not at all [facility] (I/We) worried wheth er (my/our) food would run out before (I/we) got money to buy more. Never true [facility] Start: 02-27-2023 Alcohol Comment 1-2 drinks mon thly or less, caffeine more than 4 cups per day [facility] Start: 09-04-2019 Tobacco smoking stat us NHIS Smoker (finding) [facility] Start: 1945 Sex Assigned At Female F [facility] History of Present illness Narrative 04-13-2023 Ruth Humphries NP - 04/13/2023 9:23 AM Sergio Humphries NP - 04/13/2023 9:22 AM Sergio Humphries NP - 04/13/2023 9:22 AM Sergio Humphries NP - 04/13/2023 9:21 AM EST Note Date & Type Note Facility 04-13-2023 History of Presen t illness Narrative Associated Problem(s): ETD (eustachian tube dysfunction) Stopped flonase d/t sore in nose Will trial loratadine Cont working with ENT and adiology Associated Problem(s): Mixed hyperlipidemia (CMS/HCC) Reviewed labs from 08/2022, refuses statin use, and does not want to try zetia at this time Associated Problem(s): Anxiety Has been on ativan for many years, will continue with this OARRS was reviewed Fu in 3 months Associated Problem(s): PVD (peripheral vascular disease) (CMS/HCC) Reviewed results of testing Declines any pain or symptoms at this time Got her hearing aids looked at last week and not still can not hear out of both ears. Pt thinks she's either having continuing sinus issues or allergies. Pt has also had diarrhea in the past week and pain the the sternum area pt also thought this could be her gallbladder. When pt went to go get her hearing aids done they told her they are not going to put tubes in her ears this time and it is all scar tissue. Pt is going back on the and getting a hearing test done. Images from the original note were not included. Daphne Fermin is a 77 y.o. female presents with chief complaint of No chief complaint on file. HPI: Still working w ENT and audiology regarding her ears, still with diff hearing Had some diarrhea for about a week, no blood, no fever, took immodium yesterday, no diarrhea so far today Anxiety Presents for follow-up visit. Symptoms include chest pain, excessive worry, irritability and nervous/anxious behavior. Patient reports no dizziness, nausea, palpitations, shortness of breath or suicidal ideas. Symptoms occur most days. The severity of symptoms is moderate. Compliance with medications is 76-100%. SUBJECTIVE: MEDICATIONS: Current Outpatient Medications Medication Instructions acetaminophen (Tylenol) 325 MG tablet Oral azithromycin (Zithromax) 250 MG tablet 2 pills day #1, 1 pill day #2-#5 clopidogrel (Plavix) 75 MG tablet Oral, Daily famotidine (Pepcid) 10 MG tablet Oral levothyroxine (Synthroid, Levoxyl) 75 MCG tablet Oral, Daily before breakfast LORazepam (Ativan) 1 MG tablet Oral tiZANidine (ZANAFLEX) 2 mg, Oral, Every 12 hours PRN ALLERGIES: Allergies Allergen Reactions Aspirin Avelox [Moxifloxacin] Bactrim [Sulfamethoxazole-Trimethoprim] REVIEW OF SYMPTOMS: Review of Systems Constitutional: Positive for irritability. Negative for appetite change, chills and fever. HENT: Positive for hearing loss. Negative for congestion, ear pain and sore throat. Eyes: Negative for pain, discharge, redness and visual disturbance. Respiratory: Negative for cough, shortness of breath and wheezing. Cardiovascular: Positive for chest pain. Negative for palpitations and leg swelling. Gastrointestinal: Positive for diarrhea. Negative for abdominal pain, blood in stool, constipation, nausea and vomiting. Genitourinary: Negative for difficulty urinating, dysuria and frequency. Musculoskeletal: Negative for arthralgias, back pain, joint swelling and myalgias. Skin: Negative for rash and wound. Neurological: Negative for dizziness, tremors, seizures, syncope and headaches. Psychiatric/Behavioral: Negative for behavioral problems, self-injury and suicidal ideas. The patient is nervous/anxious. Hematological: Does not bruise/bleed easily. Endocrine: Negative for polydipsia, polyphagia and polyuria. Allergic/Immunologic: Negative for environmental allergies and food allergies. PAST MEDICAL HISTORY Past Medical History: Diagnosis Date Anxiety Arthritis ETD (eustachian tube dysfunction) 04/13/2023 GERD (gastroesophageal reflux disease) Sussy's thyroiditis (CMS/HCC) SNHL (sensorineural hearing loss) Thyroid nodule (CMS/HCC) Tobacco user 03/10/2023 Visual impairment Past Surgical History: Procedure Laterality Date APPENDECTOMY HYSTERECTOMY OTHER SURGICAL HISTORY r/o bowel adhesions, BMT x 4 family history includes Diabetes in her mother and sister; Heart disease in her brother and father; Hypertension in her sister. OBJECTIVE: Visit Vitals BP 122/78 (BP Location: Left arm, Patient Position: Sitting, BP Cuff Size: Adult long) Pulse 76 Temp 97.3 F (Temporal) Resp 18 Ht 5' 2.5 Wt 131 lb 12.8 oz LMP (LMP Unknown) SpO2 99% BMI 23.72 kg/m OB Status Postmenopausal Smoking Status Every Day BSA 1.62 m Physical Exam Vitals reviewed. Constitutional: General: She is not in acute distress. Appearance: Normal appearance. HENT: Head: Normocephalic and atraumatic. Right Ear: Ear canal and external ear normal. Left Ear: Ear canal and external ear normal. Ears: Comments: Bilat TM's with scarring, +effusions noted bilat Nose: Congestion (boggy and pallor) present. Mouth/Throat: Mouth: Mucous membranes are moist. Eyes: Extraocular Movements: Extraocular movements intact. Conjunctiva/sclera: Conjunctivae normal. Cardiovascular: Rate and Rhythm: Normal rate and regular rhythm. Pulses: Normal pulses. Heart sounds: Normal heart sounds. Pulmonary: Effort: Pulmonary effort is normal. Breath sounds: Normal breath sounds. Abdominal: General: Bowel sounds are normal. There is no distension. Palpations: Abdomen is soft. There is no mass. Tenderness: There is no abdominal tenderness. Musculoskeletal: General: Normal range of motion. Cervical back: Normal range of motion and neck supple. Skin: General: Skin is warm and dry. Capillary Refill: Capillary refill takes 2 to 3 seconds. Findings: No rash. Neurological: General: No focal deficit present. Mental Status: She is alert and oriented to person, place, and time. Psychiatric: Mood and Affect: Mood normal. Behavior: Behavior normal. Thought Content: Thought content normal. Judgment: Judgment normal. ASSESSMENT AND PLAN: No follow-ups on file. Problem List Items Addressed This Visit PVD (peripheral vascular disease) ([facility]) - Primary Reviewed results of testing Declines any pain or symptoms at this time Anxiety Has been on ativan for many years, will continue with this OARRS was reviewed Fu in 3 months Relevant Medications LORazepam (Ativan) 1 MG tablet ETD (eustachian tube dysfunction) Stopped flonase d/t sore in nose Will trial loratadine Cont working with ENT and adiology Relevant Medications loratadine (Claritin) 10 MG tablet Mixed hyperlipidemia ([facility]) Reviewed labs from 08/2022, refuses statin use, and does not want to try zetia at this time documented in this encounter [facility] Evaluation note 03-08-2023 Note Date & Type [...] her PCP on with a scheduled appointment. [facility] Other Evaluation note 12-02-2022 Note Date & [...] pain. Patient verbalized understanding of treatment plan. [facility] Other Evaluation note 07-29-2022 Note Date & [...] understanding and is agreeable to treatment plan [facility] Other Evaluation note Note Date & Type Note Facility Evaluation note Diagnosis Dysuria documented in this encounter [facility] Work Phone: Evaluation note Note Date & Type Note Facility Evaluation note Diagnosis Dysfunction of both eustachian tubes- Primary PVD (peripheral vascular disease) (CMS/HCC) Unspecified peripheral vascular disease Anxiety Anxiety state, unspecified Mixed hyperlipidemia (CMS/HCC) Mixed hyperlipidemia documented in this encounter [facility] Evaluation note Note Date & Type Note Facility Evaluation note Diagnosis Onset Date Frequency of urination nonea [facility] Work Phone: History general Narrative - Reported Note Date & Type Note Facility History general Narrative - Reported Type Medical History anxiety Medical History Esophageal reflux Medical History Hypothyroidism Medical History peripheral vascular disease Surgical History appendectomy Surgical History partial hysterectomy Surgical History bowel surgery Surgical History colonoscopy Hospitalization History see above Hospitalization History abdominal pain [facility] Other Assessments Diagnosis Vaginal irritation Unspecified noninflammatory disorder of vagina Diagnosis Frequency of urination Urinary frequency Vaginal infection Vaginitis and vulvovaginitis, unspecified STD exposure Advance Directives No Advanced Directives Records FoundDocuments on File Type Date Recorded 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 ACP-Advance Directive ACP-Power of Mechanical Intern Advance Directive Response Recorded Date/ Time Advance Directives No September 13 9:36am Summary Purpose Family History No Family History Records Found Relationship Condition Age at Onset Recorded Date/T nya brother Diabetes mellitus Unknown Heart disease Unknown Hypertension Unknown father Myocardial infarction Unknown Family history of mental disorder Unknown Unknown family member Unknown Not Specified Unknown Diabetes mellitus Unknown natural son Cardiomyopathy Unknown sister Heart disease Unknown Malignant neoplasm Unknown Chief Complaint and Reason for Visit Chief Complaint Poss Sinus Infection , Rib Pain plugged ears, dysuria, runny nose Reason for Visit Frequency of urinati on Additional Source Comments INFORMATION SOURCE (unrecogn ized section and content) DATE CREATED AUTHOR 05/18/2020 [facility] DATE CREATED AUTHOR AUTHOR'S ORGANIZ ATION 03/18/2021 [facility] DATE CREATED AUTHOR AUTHOR'S ORGANIZ ATION 12/08/2021 [facility] DATE CREATED AUTHOR AUTHOR'S ORGANIZ ATION 08/06/2022 [facility] DATE CREATED AUTHOR AUTHOR'S ORGANIZ ATION 05/07/2023 [facility] DATE CREATED AUTHOR AUTHOR'S ORGANIZ ATION 06/01/[address] [facility] [employer] Care Teams (unrecognized sec tion and content) Mri Technologist Relationship Specialty Start Date End Date Sr Kvng Urbina DO [address] [place] [address] PCP - General Family Medicine 06/30/15 Mri Technologist Relationship Specialty Start Date End Date Norman Matias MD [address] [place] [address] PCP - General Family Medicine 03/21/23 Mri Technologist Relationship Specialty Start Date End Date Norman Matias MD [address] [place] [address] PCP - General Family Medicine 03/21/23 Team Status: Active Member Role Status Dates Outreach [facility] Primary Care Provider Active Team Status: Inactive Member Role Status Dates Pao Terry RN Attending Provider Active Start : March 08, 2023 End: March 08, 2023 Team Status: Inactive Member Role Status Dates Nuzhat Liz APRN Attending Provider Active Start: May 26, 2023 End: May 26, 2023 Outreach [facility] Primary Care Provider Active Start: May 26, 2023 End: May 26, 2023 REASON FOR VISIT (unrecogniz ed section and content) utiBLADDER INFECTIONPOSS SIN US INFECTION, RIB PAIN Goals (unrecognized section and content) Goals may be documented in a n alternate section FOR RECORDS PERTAINING TO PATIENTS WHO ARE [...] BE BASED ON THE PRIMARY CLINICAL RECORDS. [facility] [employer] [facility]. provides no warranty or guarantee of the accuracy or completeness of information in this document.
[2023-06-04 11:45] VITALS: BP 139/88; PULSE 94; TEMP 36.6; O2SAT 98; BMI 22.0
--- NOTE | 2023-06-04 14:52 | ED_ITS ---
HPI HPI - General Adult General Chief complaint: Upper Respiratory Infection Stated complaint: COUGH, DIARRHEA Time Seen by Provider: 06/04/23 14:31 Source: patient Mode of arrival: walk-in History of Present Illness HPI narrative: 78-year-old female was brought to the emergency room accompanied with her daughter. Patient had an upper respiratory infection. She has been scared to take medications prescribed by her doctors. Daughter brought her here for evaluation. Patient looks well no acute distress. Patient is been taking a Z- Ian to her first 2 pills yesterday. Patient had questions about the medication. She is otherwise in no acute distress. No fever or chills. Lung sounds are clear Related Data Home Medications ?Medication ?Instructions ?Recorded ?Confirmed clopidogrel 75 mg tablet 75 mg PO DAILY 06/04/23 06/04/23 Allergies Allergy/AdvReac Type Severity Reaction Status Date / Time Penicillins Allergy Severe Verified 06/04/23 11:44 Opioid HPI Opioid Management Most Recent Opioid Data: No Data to Display Review of Systems ROS Narrative All Systems are negative except as noted/marked.All systems reviewed and otherwise negative Exam Narrative Exam Narrative: All Systems are negative except as noted/marked.All systems reviewed and otherwise negative Nurses note and vital signs reviewed and patient is not hypoxic. General: The patient appears well and in no apparent distress. Patient is resting comfortably on cart. Skin: Warm, dry, no pallor noted. There is no rash noted. Head: Normocephalic, atraumatic Eye: Normal conjunctiva, no drainage, EOMI. PERRL Ears, Nose, Mouth, and Throat: oral mucosa is moist. Nares patent. Mouth without vesicles. Ear canals patent. Tm's without Erythema Cardiovascular: Regular Rate and Rhythm Respiratory: Patient is in no distress, no accessory muscle use, lungs are clear to auscultation, no wheezing, rales or rhonchi Back: non-tender, no CVA tenderness bilaterally to percussion. Musculoskeletal:no acute deformity, Full range of motion ambulating well no acute swelling Neurological: A&O x4, normal speech Psychiatric: Cooperative Constitutional Vital Signs, click to edit/add: Last Vital Signs Temp 97.8 F 06/04/23 11:45 Pulse 94 H 06/04/23 11:45 Resp 18 06/04/23 11:45 BP 139/88 06/04/23 11:45 Pulse Ox 98 06/04/23 11:45 O2 Del Method Room Air 06/04/23 11:45 Course Vital Signs Vital signs: Vital Signs Temperature 97.8 F 06/04/23 11:45 Pulse Rate 94 H 06/04/23 11:45 Respiratory Rate 18 06/04/23 11:45 Blood Pressure 139/88 06/04/23 11:45 Pulse Oximetry 98 06/04/23 11:45 Oxygen Delivery Method Room Air 06/04/23 11:45 Temperature 97.8 F 06/04/23 11:45 Pulse Rate 94 H 06/04/23 11:45 Respiratory Rate 18 06/04/23 11:45 Blood Pressure 139/88 06/04/23 11:45 Pulse Oximetry 98 06/04/23 11:45 Oxygen Delivery Method Room Air 06/04/23 11:45 Medical Decision Making MDM Narrative Medical decision making narrative: 78-year-old female was brought to the emergency room accompanied with her daughter. Patient had an upper respiratory infection. She has been scared to take medications prescribed by her doctors. Daughter brought her here for evaluation. Patient looks well no acute distress. Patient is been taking a Z- Ian to her first 2 pills yesterday. Patient had questions about the medication. She is otherwise in no acute distress. No fever or chills. Lung sounds are clear She does not need any further medications. She looks well. She is recently being treated for an ear infection. She did remove her hearing aids. Her ears show no signs of infection at this time, there is chronic changes with some cerumen. Patient is here with daughter and will follow-up with primary care physician Differential Diagnosis Differential Diagnosis: uri, cough Medical Records Medical records reviewed: Yes I reviewed the patient's medical records Discharge Plan Discharge Stand Alone Forms: Portal Instructions Chief Complaint: Upper Respiratory Infection Clinical Impression: Upper respiratory infection Patient Disposition: Home, Self-Care Time of Disposition Decision: 14:51 Condition: Good Prescriptions / Home Meds: No Action clopidogrel 75 mg tablet 75 mg PO DAILY Print Language: Danish Instructions: Upper Respiratory Infection (ED) Referrals: Ruth Humphries NP [Primary Care Provider] - 1 week
== END 2023-06-04 14:50 | disposition home or self-care (01) ==
PROVIDERS: Emergency Provider Emergency Medicine Emergency Medical Services; PCP Nurse Practitioner
DX: J06.9 Acute upper respiratory infection, unspecified (principal)
CPT/HCPCS: 99281

== ENCOUNTER 2023-09-08 06:38 | Outpatient (OUT) | payer MEDICARE, OTHER, SELFPAY ==
[2023-09-08 07:38] LABS: Hematocrit 40.2 % (36.0-48.0); Mean Corpuscular HGB Conc 32.3 g/dL (29.9-35.2); Mean Corpuscular Hemoglobin 30.2 pg (26.7-34.0); Mean Corpuscular Volume 93.3 fL (81.0-99.0); Mean Platelet Volume 10.1 fL (9.5-13.5); Platelet Count 210 10^3/uL (150-450); Red Blood Count 4.31 10^6/uL (4.20-5.40); Red Cell Distribution Width 14.1 % (11.0-15.0); White Blood Count 5.8 10^3/uL (4.0-11.0)
[2023-09-08 08:15] LABS: Basophils Abs Manual 0.17 10^3/uL (0.00-0.10); Eosinophils Absolute Manual 0.23 10^3/uL (0.00-0.70); Lymphocytes Absolute Manual 0.46 10^3/uL (1.20-3.80); Monocytes Absolute Manual 0.34 10^3/uL (0.30-0.80); Segmented Neut Absolute Manual 4.58 10^3/uL (1.4-6.5)
[2023-09-08 11:05] LABS: Alanine Aminotransferase 12 U/L (14-59); Albumin Level 3.7 g/dL (3.4-5.0); Alkaline Phosphatase 85 U/L (46-116); Anion Gap 12.4; Aspartate Amino Transferase 6 U/L (15-37); Bilirubin Total 0.3 mg/dL (0.2-1.0); Calcium 9.4 mg/dL (8.5-10.1); Carbon Dioxide 27.2 mmol/L (21.0-32.0); Chloride 105 mmol/L (98-107); Chol HDL Ratio 4.4; Cholesterol 247 mg/dL (<=200); Estimated GFR (African America >60 (>=60); Estimated GFR (Non-African Ame 50 (>=60); Globulin 3.6 g/dL; Glucose 87 mg/dL (74-106); HDL Cholesterol 56 mg/dL (40-60); Potassium 4.6 mmol/L (3.5-5.1); Sodium 140 mmol/L (136-145); Thyroid Stimulating Hormone 3.119 uIU/mL (0.358-3.740); Total Protein 7.3 g/dL (6.4-8.2); Triglycerides 127 mg/dL (<=150); VLDL CHOLESTEROL 25.4 mg/dL
[2023-09-08 11:27] LABS: Uric Acid 3.4 mg/dL (2.6-6.0)
[2023-09-08 12:04] LABS: Free T4 1.26 ng/dL (0.76-1.46)
== END 2023-09-08 06:39 | disposition home or self-care (01) ==
PROVIDERS: PCP Nurse Practitioner; Visit Provider Nurse Practitioner
DX: K21.9 Gastro-esophageal reflux disease without esophagitis (principal); I73.9 Peripheral vascular disease, unspecified; E78.2 Mixed hyperlipidemia; E03.9 Hypothyroidism, unspecified; R22.42 Localized swelling, mass and lump, left lower limb
CPT/HCPCS: 36415; 80053; 80061; 84439; 84443; 84550; 85007; 85027

== ENCOUNTER 2023-09-19 07:54 | Outpatient (OUT) | payer MEDICARE, OTHER, SELFPAY ==
[2023-09-19 08:22] LABS: Basophils Absolute Auto 0.1 10^3/uL (0.0-0.1); Basophils Percent Auto 0.8 % (0.2-2.0); Eosinophils Absolute Auto 0.2 10^3/uL (0.0-0.7); Eosinophils Percent Auto 2.6 % (0.9-7.0); Hematocrit 39.3 % (36.0-48.0); Hemoglobin 12.5 g/dL (12.0-16.0); Immature Granulocytes Abs Auto 0.02 10^3/uL (0.00-0.03); Immature Granulocytes Pct Auto 0.3 % (0.0-0.5); Lymphocytes Absolute Auto 0.9 10^3/uL (1.2-3.8); Lymphocytes Percent Auto 13.4 % (20.5-60.0); Mean Corpuscular HGB Conc 31.8 g/dL (29.9-35.2); Mean Corpuscular Hemoglobin 29.9 pg (26.7-34.0); Mean Platelet Volume 9.9 fL (9.5-13.5); Monocytes Absolute Auto 0.6 10^3/uL (0.3-0.8); Monocytes Percent Auto 8.7 % (1.7-12.0); Neutrophils Absolute Auto 4.9 10^3/uL (1.4-6.5); Neutrophils Percent Auto 74.2 % (43.0-75.0); Platelet Count 228 10^3/uL (150-450); Red Blood Count 4.18 10^6/uL (4.20-5.40); Red Cell Distribution Width 14.1 % (11.0-15.0); White Blood Count 6.6 10^3/uL (4.0-11.0)
--- NOTE | 2023-09-19 08:23 | MM_ITS ---
Patient Name: MARGARITA COSME MR#: [id number] : 1945 Exam Date: 09/19/2023 Ordering Doctor: BECKY Humphries CNP RADIOLOGY REPORT PROCEDURE: MM TOMOSYNTHESIS SCREENING BI COMPARISON: MG MAMM SCREEN ISIDRO W CAD, 07/31/2019. MM TOMOSYNTHESIS SCREENING BI, 09/15/2022. INDICATIONS: Screening Calculator Name NCI Breast Cancer Risk Assessment Tool 5 Year Breast Cancer Risk 1.70% Lifetime Breast Cancer Risk 3.30% Personal Breast Cancer No Personal Ovarian Cancer No Treatments None Family Cancers Sister with cervical cancer at age ~30. LOCATION: [facility] BREAST COMPOSITION: The breasts are heterogeneously dense,which may obscure small masses. FINDINGS: DIAGNOSTIC CATEGORY 1--NEGATIVE. NO CHANGE FROM COMPARISON ASSESSMENT. Scattered benign-appearing calcifications are present. RIGHT BREAST: No significant suspicious finding. LEFT BREAST: No significant suspicious finding. RECOMMENDATIONS: ROUTINE MAMMOGRAM AND CLINICAL EVALUATION IN 12 MONTHS. PLEASE NOTE: A NORMAL MAMMOGRAM DOES NOT EXCLUDE THE POSSIBILITY OF BREAST CANCER. A CLINICALLY SUSPICIOUS PALPABLE LUMP SHOULD BE BIOPSIED. Dictated by: Ender Hebert MD on 09/19/2023 at 11:55 Approved by: Ender Hebert MD on 09/19/2023 at 11:56
--- NOTE | 2023-09-19 08:23 | US_ITS ---
[address] [address] Patient Name: MARGARITA COSME MRN: [id number] date: 1945 Sex: F Assigned Patient Location: MAMMO Current Patient Location: MAMMO Accession/Order Number: [id number] Exam Date: 09/19/2023 08:30 Report Date: 09/19/2023 12:47 At the request of: CRISTIAN MCCOY Procedure: US arterial duplex LE LT EXAMINATION: US arterial duplex LE LT HISTORY: Localized Swelling Left Foot, Peripheral Vascular Disease COMPARISON: 03/24/2023 TECHNIQUE: Color duplex Doppler ultrasound evaluation analysis was performed in the usual manner. FINDINGS: Region: Left leg Normal triphasic waveform in the left iliac, common femoral and deep femoral and femoral artery. Biphasic waveform identified in the popliteal and runoff arteries US/US arterial duplex LE LT IMPRESSION: Distal biphasic waveform suggesting mild ischemia Electronically authenticated by: JUWAN NAVA Date: 09/19/2023 12:47
[2023-09-19 08:32] LABS: Erythrocyte Sedimentation Rate 46 mm/hr (<=30)
== END 2023-09-19 07:55 | disposition home or self-care (01) ==
LOC: MAMMO 07:54
PROVIDERS: PCP Nurse Practitioner; Visit Provider Nurse Practitioner
DX: Z12.31 Encounter for screening mammogram for malignant neoplasm of breast (principal); I73.9 Peripheral vascular disease, unspecified; R22.42 Localized swelling, mass and lump, left lower limb; D72.810 Lymphocytopenia; Z80.49 Family history of malignant neoplasm of other genital organs
CPT/HCPCS: 36415; 77063; 77067; 85025; 85652; 93926

== ENCOUNTER 2024-10-15 06:29 | Outpatient (OUT) | payer MEDICARE, OTHER, SELFPAY ==
--- OUTSIDE RECORDS SUMMARY | 2024-10-15 06:34 | XMS_ITS | CCD ---
Author Organization [facility] Inform ion Partnership [facility] Care Team Providers Care Historical Archeologist Name Role Phone House, Sr Kvng Gutierrez Primary Care Provider LUCRETIA BRADLEY Referring Unavailable HOUSE, SR KVNG Gutierrez Primary Care Unavailable House DO, Sr Kvng Gutierrez Primary Care Provider [phone] ULICES CLARKE Attending Unavailable ULICES CLARKE Consulting Unavailable ULICES CLARKE Admitting Unavailable HOUSE, DR COLON Primary Care Unavailable KRYSTAL WEST Consulting Unavailable ULICES CLARKE Attending Unavailable ULICES CLARKE Consulting Unavailable ULICES CLARKE Admitting Unavailable HOUSE, DR COLON Primary Care Unavailable DIAB ., BENEDICT Attending Unavailable DIAB ., BENEDICT Admitting Unavailable HOUSE, DR COLON Primary Care Unavailable PANTERACHNY ., ANGEL FLORES Consulting UnavailNuzhat Nguyen Unavailable Reyna Santos Unavailable Pao Terry Unavailable Norman Matias MD Primary Care Provider Ruth Humphries Attending Provider [phone] Ruth Humphries Primary Care Provider Ruth Humphries Referring Provider [phone] MD Josselyn Gomez Attending Provider Ruth Humphries Primary Care Provider MD Josselyn Gomez Attending Provider Ruth Humphries Referring Provider HONG LOYA Referring Unavailable HOUSE SRKVNG Primary Care Unavailable MD Beck Holloway Attending Provider Beck Holloway Attending Unavailable Beck Holloway Admitting Unavailable AichholRuth danielle Primary Care Unavailable Aichholjony, Ruth J Primary Care Unavailable Al-Marrawi, Mhd Yaser Admitting Unavailabl e Al-Marrawi, Josselyn Unger Attending Unavailabl e Aichholjony, Ruth J Primary Care Unavailable Aichholz, Ruth J Referring Unavailable Al-Marrawi, Mhd Yaser Admitting Unavailabl e Al-Marrawi, Mhd Yaser Attending Unavailabl e Aichholz, Ruth J Attending Unavailable Aichholz, Ruth J Admitting Unavailable Aichholz CORNICE MAKER, Ruth Unavailable [facility] Aretha Clark PA-C, Jayla Tavares Attending Isabelle Prasad Attending Unavailable [facility] Aretha HUMPHRIES, RUTH Attending Unavailable AICHHOLZ, RUTH Attending Unavailable AICHHOLZ, RUTH Attending Unavailable AICHHOLZ, RUTH Attending Unavailable AICHHOLZ, RUTH Attending Unavailable Allergies Allergy Classification Reported Allergen(s) Allergy Type Date of Onset Reaction(s) Facility (20 sources) Aluminum aspirin; Translations: [aspirin] Drug Allergy 06-30-19 16 TACHYCARDIA, heart rate increased [place], [place] (20 sources) moxifloxacin Drug Allergy 07-17-19 15 Anaphylaxis [place] (20 sources) Sulfamethoxazole / Trimethoprim Drug Allergy 12-09-19 22 Other (See Comments) [employer] [employer] [facility] Work Phone: (1 source) Aspirin Drug Allergy [facility] Repository (2 sources) moxifloxacin; Translations: [Avelox] Drug Allergy [facility] Repository (3 sources) Aspirin Drug Allergy heart rate increased [employer] Other (20 sources) Penicillin G Drug Allergy 12-28-19 23 feels [facility] (7 sources) Sulfamethoxazole; Translations: [sulfamethoxazole] Drug Allergy 05-26-19 24 patient states will not take it because it killed her si... [facility] (7 sources) Trimethoprim; Translations: [trimethoprim] Drug Allergy 05-26-19 patient states will not take it because it killed her si... [facility] (1 source) Aspirin Drug Allergy 11-02-19 [facility] Repository (1 source) moxifloxacin Drug Allergy 11-02-19 [facility] Repository (1 source) Penicillin Drug Allergy 11-02-19 [facility] Repository (1 source) Penicillin; Translations: [penicillin] Drug Allergy [facility] Repository Medications Current Medications Medication Drug Class(es) Dates Sig (Normalized) Sig (Original) acetaminophen 325 mg oral tablet (20 sources) acetaminophen (T ylenol) 325 MG tablet Take by mouth. Active take 1 tablet by dayana th every six hours as needed for pain acetaminophen (TYLENOL) 500 MG tablet Ta ke 500 mg by mouth every 6 hours as needed for Pain 0 Active azithromycin 250 mg oral tablet (6 sources) Macrolide Antimicrobial Start: 06-26-2024 End: 10-04-2024 azithromycin (Zithromax) 250 MG tablet Indications: Bronchitis Day #1: 2 pills, Day #2-#5: 1 pill 6 tablet 06/26/2024 10/04/2024 Discontinued (Therapy completed) Start: 03-10-2023 End: 04-13-2023 azithromycin (Zithromax) 250 [...] Active clobetasol propionate 0.5 mg/ml topical cream (11 sources) Corticosteroid Start: 11-01-2023 End: 04-05-2024 clobetasol (Temovate) 0.05 % cream Apply topically 2 (two) times a day 11/01/2023 04/05/2024 Discontinued (Therapy completed) Start: 08-10-2016 clobetasol (TE MOVATE) 0.05 % cream Indications: Vaginal irritation Apply topically 2 times daily. 1 Tube 1 08/10/2016 Active clopidogrel 75 mg oral tablet (20 sources) P2Y12 Platelet Inhibitor Start: 03-11-2024 End: 01-02-2025 take 1 tablet by mouth once daily clopidogrel (Plavix) 75 MG tablet Indications: PVD (peripheral vascular disease) Take 1 tablet (75 mg) by mouth Daily 90 tablet 1 10/04/2024 01/02/2025 Active Start: 09-22-2023 End: 02-07-2024 take 1 tablet by mouth once daily clopidogrel (Plavix) 75 MG tablet Indications: PVD (peripheral vascular disease) (CMS/HCC) Take 1 tablet (75 mg) by mouth Daily 90 tablet 1 11/09/2023 02/07/2024 Active Start: 05-26-2023 End: 11-02-2023 Clopidogrel Discontinued MG PO May 26, 2023 12:00am November 02, 2023 1:09pm clopidogrel (Wali vix) 75 MG tablet Take by mouth Daily. 0 Active Clopidogrel Bisu lfate (PLAVIX PO) Take by mouth 0 Active famotidine 20 mg oral tablet (20 sources) Histamine-2 Receptor Antagonist Start: 11-02-2023 take 20 mg by mouth once daily famotidine (Pepcid) Active 20 MG PO Daily November 02, 2023 1:09pm Start: 05-26-2023 End: 11-02-2023 famotidine (Pepcid) Disconti nued PO May 26, 2023 12:00am November 02, 2023 1:09pm Start: 05-26-2023 famotidine (Pe pcid) Active PO May 26, 2023 12:00am famotidine (Pepc id) 10 MG tablet Take by mouth. Active take 1 tablet by dayana th every twenty-four hours Pepcid 20 MG 1 tablet at bedtime as needed Orally Once a day Active fluticasone propionate 0.05 mg/actuat metered dose nasal spray (1 source) Corticosteroid Start: 03-08-2023 take 1 spray(s) nasal route once daily Fluticasone Propionate 50 MCG/ACT 1 spray in each nostril Nasally Once a day for 14 Feb, Active levothyroxine sodium 0.075 mg oral tablet (20 sources) l-Thyroxine Start: 09-22-2023 End: 01-02-2025 take 1 tablet by mouth before mealtime levothyroxine (Synthroid, Levoxyl) 75 MCG tablet Indications: Hypothyroidism, unspecified type Take 1 tablet (75 mcg) by mouth in the morning. Take before meals. 90 tablet 1 10/04/2024 01/02/2025 Active Start: 05-26-2023 End: 11-02-2023 Levothyroxine Discontinued M CG PO May 26, 2023 12:00am November 02, 2023 1:09pm levothyroxine (S ynthroid, Levoxyl) 75 MCG tablet Take by mouth Daily before meals. 0 Active Levothyroxine So dium 75 MCG as directed Orally Active Levothyroxine So dium 75 MCG as directed Orally Active take 1 tablet by dayana th once daily levothyroxine (SYNTHROID) 50 MCG tablet Take 50 mcg by mouth Daily 0 Active loratadine 10 mg oral tablet (11 sources) Start: 09-22-2023 End: 01-16-2024 take 1 tablet by mouth once daily loratadine (Claritin) 10 MG tablet Indications: Dysfunction of both eustachian tubes Take 1 tablet (10 mg) by mouth Daily 90 tablet 1 10/18/2023 01/16/2024 Active Start: 04-13-2023 End: 05-13-2023 take 1 tablet by mouth in the morning loratadine (Claritin) 10 MG tablet Indications: Dysfunction of both eustachian tubes Take 1 tablet (10 mg) by mouth in the morning. 30 tablet 2 04/13/2023 05/13/2023 Active LORazepam 1 mg oral tablet (20 sources) Benzodiazepine Start: 06-06-2024 End: 11-03-2024 take 1 tablet by mouth every eight hours as needed for anxiety and anxiety and anxiety LORazepam (Ativan) 1 MG tablet Indications: Anxiety Take 1 tablet (1 mg) by mouth every 8 (eight) hours if needed for anxiety Take by mouth. 90 tablet 2 10/04/2024 11/03/2024 Active Start: 09-04-2019 End: 05-05-2024 take 1 tablet by mouth every eight hours as needed for anxiety and anxiety and anxiety LORazepam (Ativan) 1 MG tablet Indications: Anxiety Take 1 tablet (1 mg) by mouth every 8 (eight) hours if needed for anxiety Take by mouth. 90 tablet 2 04/05/2024 Active Start: 06-27-2015 End: 11-02-2023 take 1 mg by mouth three times daily Lorazepam Active 1 MG PO Three times daily November 02, 2023 1:08pm nitrofurantoin, macrocrystals 25 mg / nitrofurantoin, monohydrate 75 mg oral capsule (3 sources) Nitrofuran Antibacterial Start: 11-01-2023 End: 11-11-2023 take 1 capsule by mouth in the morning nitrofurantoin, macrocrystal-monohydrate, (Macrobid) 100 MG capsule Take 1 capsule by mouth in the morning and 1 capsule before bedtime. 11/01/2023 11/11/2023 Active omeprazole 10 mg delayed release oral capsule (3 sources) Proton Pump Inhibitor take 1 capsule by mouth once daily omeprazole (PRILOSEC) 10 MG capsule Take 10 mg by mouth daily 0 Active Probiotic (3 sources) Completed/Discontinued Medications Medication Drug Class(es) Dates Sig (Normalized) Sig (Original) acetaminophen 325 mg / HYDROcodone bitartrate 5 mg oral tablet (6 sources) Opioid Agonist Start: 09-04-2019 End: 05-26-2023 take 1 tablet by mouth every four to six hours Hydrocodone-Acetam inophen (Verdigre) 5-325 mg Tablet Discontinued 1 TAB PO EVERY 4-6 HOURS 7 3 September 04, 2019 May 26, 2023 5:13pm atorvastatin 40 mg oral tablet (3 sources) HMG-CoA Reductase Inhibitor Start: 03-12-2020 take 1 tablet by mouth every twenty-four hours Atorvastatin Calcium 40 MG 1 tablet Orally Once a day for 30 day(s) Feb, Not-Taking/PRN ibuprofen 600 mg oral tablet (6 sources) Nonsteroidal Anti-inflammatory Drug Start: 09-04-2019 End: 10-12-2023 Ibuprofen Discontinued 600 MG PO Every 6 hours September 04, 2019 12:00am October 12, 2023 1:18pm do not exceed 4 doses in a 24 hour period ofloxacin 3 mg/ml otic solution (5 sources) Quinolone Antimicrobial Start: 05-26-2023 End: 10-12-2023 Ofloxacin Discontinued 10 DROPS OTIC daily 10 7 May 26, 2023 12:00am October 12, 2023 1:19pm tiZANidine 2 mg oral tablet (17 sources) Central alpha-2 Adrenergic Agonist Start: 05-26-2023 End: 10-12-2023 Tizanidine Discontinued MG PO May 26, 2023 12:00am October 12, 2023 1:18pm Start: 03-14-2023 End: 01-04-2024 take 1 tablet by mouth once tiZANidine (Zanaflex) 2 MG tablet Indications: Rib pain on left side Take 1 tablet (2 mg) by mouth every 12 (twelve) hours if needed for muscle spasms for up to 7 days 14 tablet 03/14/2023 01/04/2024 Discontinued (Therapy completed) Problems Active Problems Problem Classification Problem Date Documented Date Episodic/Chronic Administrative/social admission (4 sources) Encounter for issue of repeat prescription; Translations: [ENC FOR ISSUE REPEAT PRESCRIPTION] Onset: 07-23-2022 Episodic Anxiety disorders (20 sources) Anxiety; Translations: [Anxiety disorder, unspecified] Onset: 01-24-2023 01-24-2023 Chronic Aortic and peripheral arterial embolism or thrombosis (3 sources) 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; Translations: [Embolism and thrombosis of arteries of the lower extremities] Chronic Chronic kidney disease (3 sources) Chronic kidney disease stage 3; Translations: [Chronic kidney disease, stage 3 (moderate)] Chronic Diseases of white blood cells (20 sources) Lymphocytopenia; Translations: [Lymphocytopenia] Onset: 09-10-2023 10-12-2023 Chronic Disorders of lipid metabolism (20 sources) Mixed hyperlipidemia; Translations: [Mixed hyperlipidemia] Onset: 04-13-2023 04-13-2023 Chronic Esophageal disorders (20 sources) Gastroesophageal reflux disease; Translations: [Gastro-esophageal reflux disease without esophagitis] Onset: 04-13-2023 04-13-2023 Chronic Inflammatory diseases of female pelvic organs (1 source) Infective vaginitis ; Translations: [Vaginal infection] Episodic Osteoarthritis (20 sources) Arthritis; Translations: [Unspecified osteoarthritis, unspecified site] Onset: 04-13-2023 04-13-2023 Chronic Other acquired deformities (20 sources) Contracture of joint of right ankle; Translations: [Contracture, right ankle] Onset: 01-24-2023 01-24-2023 Chronic Other aftercare (1 source) Other bed bug exterminator (current) drug therapy; Translations: [OTH LONG-TERM CURRENT DRUG THERAPY] Onset: 07-26-2022 Episodic Other circulatory disease (20 sources) Raynaud's disease; Translations: [Raynaud's syndrome without gangrene] Onset: 01-24-2023 01-24-2023 Chronic Other ear and sense organ disorders (20 sources) Mixed conductive and sensorineural hearing loss, bilateral; Translations: [Mixed conductive and sensorineural hearing loss, bilateral] Onset: 01-24-2023 01-24-2023 Chronic Other ear and sense organ disorders (5 sources) Sensorineural hearing loss; Translations: [Unspecified sensorineural hearing loss] Onset: 04-13-2023 04-13-2023 Chronic Other female genital disorders (1 source) Vaginal irritation; Translations: [Vaginal irritation] Episodic Other female genital disorders (1 source) Other specified noninflammatory disorders of vagina; Translations: [Other specified noninflammatory disorders of vagina] Onset: 11-01-2023 Episodic Other screening for suspected conditions (not mental disorders or infectious disease) (20 sources) Patient encounter status; Translations: [Encounter for screening for malignant neoplasm of respiratory organs] Onset: 11-01-2023 10-12-2023 Episodic Other upper respiratory disease (20 sources) Chronic rhinitis; Translations: [Chronic rhinitis] Onset: 01-24-2023 01-24-2023 Chronic Peripheral and visceral atherosclerosis (20 sources) Peripheral vascular disease; Translations: [Peripheral vascular disease, unspecified] Onset: 01-24-2023 01-24-2023 Chronic Residual codes; unclassified (20 sources) Tobacco user; Translations: [Tobacco use] Onset: 03-10-2023 03-10-2023 Episodic Residual codes; unclassified (5 sources) Family history of diseases of the skin and subcutaneous tissue; Translations: [Family history of skin conditions] 10-12-2023 Episodic Residual codes; unclassified (5 sources) Family history of arthritis; Translations: [Family history of arthritis] 10-12-2023 Episodic Residual codes; unclassified (5 sources) Family history of diseases of the blood and blood-forming organs and certain disorders involving the immune mechanism; Translations: [Family history of other condition] 10-12-2023 Episodic Substance-related disorders (10 sources) Nicotine dependence, cigarettes, uncomplicated; Translations: [Light cigarette smoker] Onset: 07-26-2022 10-12-2023 Chronic Superficial injury; contusion (6 sources) Contusion of rib; Translations: [Contusion of unspecified front wall of thorax, initial encounter] 02-09-2023 Episodic Thyroid disorders (20 sources) Autoimmune thyroiditis; 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] Onset: 07-16-2014 08-10-2016 Chronic Unclassified (1 source) LOW BACK PAIN, UNSPECIFIED; Translations: [LOW BACK PAIN, UNSPECIFIED] Onset: 08-21-2021 Viral infection (4 sources) COVID-19; Translations: [COVID-19] Onset: 08-21-2021 Past or Other Problems Problem Classification Problem Date Documented Da te Episodic/Chronic Abdominal pain (20 sources) Lower abdominal pain, unspecified; Translations: [Flank pain] Onset: 03-14-2023 Resolved: 11-09-2023 Episodic Chronic obstructive pulmonary disease and bronchiectasis (4 sources) Bronchitis; Translations: [Bronchitis, not specified as acute or chronic] Onset: 06-26-2024 Resolved: 10-04-2024 06-26-2024 Episodic Gastrointestinal hemorrhage (20 sources) Rectal hemorrhage; Translations: [Hemorrhage of anus and rectum] Onset: 03-14-2023 03-14-2023 Episodic Genitourinary symptoms and ill-defined conditions (20 sources) Increased frequency of urination; Translations: [Dysuria] Onset: 12-08-2021 Resolved: 11-09-2023 Episodic Immunizations and screening for infectious disease (20 sources) Exposure to sexually transmissible disorder; Translations: [Encounter for immunization] Onset: 08-25-2021 Episodic Mood disorders (17 sources) Mood disorders Onset: 11-09-2023 11-09-2023 Other aftercare (20 sources) Drug therapy finding; Translations: [Other bed bug exterminator (current) drug therapy] Onset: 06-23-2023 06-23-2023 Episodic Other gastrointestinal disorders (13 sources) Flatulence symptom ; Translations: [Flatulence] Onset: 02-06-2025 02-06-2025 Episodic Other lower respiratory disease (20 sources) Rib pain; Translations: [Pleurodynia] Onset: 03-14-2023 Resolved: 04-13-2023 03-14-2023 Episodic Other skin disorders (20 sources) Localized swelling of left foot; Translations: [Localized swelling, mass and lump, left lower limb] Onset: 09-05-2023 09-05-2023 Episodic Other upper respiratory infections (20 sources) Streptococcal sore throat; Translations: [Strep throat] Onset: 03-10-2023 Resolved: 10-04-2024 Episodic Otitis media and related conditions (20 sources) Dysfunction of eustachian tube; Translations: [Unspecified Eustachian tube disorder, unspecified ear] Onset: 04-13-2023 Resolved: 11-09-2023 04-13-2023 Episodic Residual codes; unclassified (20 sources) Body mass index 20-24 - normal; Translations: [Body mass index (BMI) 24.0-24.9, adult] Onset: 03-10-2023 03-10-2023 Episodic Residual codes; unclassified (20 sources) FH: Rheumatoid arthritis; Translations: [Family history of arthritis] Onset: 11-09-2023 10-12-2023 Episodic Residual codes; unclassified (20 sources) Family history of lupus erythematosus; Translations: [Family history of diseases of the skin and subcutaneous tissue] Onset: 11-09-2023 10-12-2023 Episodic Residual codes; unclassified (20 sources) Family history of sarcoidosis; Translations: [Family history of diseases of the blood and blood-forming organs and certain disorders involving the immune mechanism] Onset: 11-09-2023 10-12-2023 Episodic Results Test Name Value Interpretation Reference Range Facility Otolaryngology Office/Clinic Noteon 05-02-2024 Otolaryngology Office/Clinic Note Chief Complaint Pt states here for ear cleaning . History of Present Illness History of Present Illness HPI: Pt states has wax buildup in R ear. On blood thinner so pcp was afraid to go further and risk ear bleeding. Review of Systems General Adult ROS Fatigue: [...] No Skin Physical Exam Vitals & Measurements HT: 157 cm WT: 60.7 kg (Dosing) WT: 60.7 kg BMI: 24.63 Overall:[Communication mode is clear, normal] [Appearance- no acute distress, appears stated age and is well nourished] Assistive device:[ none] Head:[normocephalic, no trauma, lesions or asymmetry] Ocular appearance:[ Conjuctiva- clear and bright, no drainage or infection. EOM intact] Ears:[ external ear- normal shape, no signs of infection, mass, lesion or asymmetry bilaterally. Ear canal shows wax impaction, right. This was cleaned and removed with microinstrumentation as adequate view of eardrum was not possible. Once removed ear exam was normal] [Eardrum-healthy, no sign of infection, trauma, perforation or infection, clean dry TM perf] [Middle ear- healthy, no obvious fluid present or infection] Mental Status:[Alert and oriented x3][Mood and affect normal][Gait is normal]. Additional Vitals No qualifying data available. Assessment/Plan 1. Impacted cerumen, right ear wax present and cleaned right ear. recheck prn Medical Decision Making Chronic conditions NOT treated during this visit that affected my overall medical decision making: [] Treatment plans discussed but not opted for at this time: [] Prescribed medication that requires intensive monitoring for toxicity: [] I have reviewed the patient?s medication list for medication interactions/contraind ications and/or for upcoming procedures: [yes or no] Time Spent with the Patient I have personally spent [] minutes on this date, directly related to today's patient visit, including pre and post visit work, for this date of service. Time listed does not include time spent on separately billable services. Problem List/Past Medical History Ongoing Acid reflux Sussy disease Historical No qualifying data Procedure/Surgical History bowel scar tissue removed hysterectomy appendectomy Medications clopidogrel 75 mg oral tablet, 90 EA, take 1 tablet by mouth once daily levothyroxine 50 mcg (0.05 mg) oral capsule, 50 mcg= 1 caps, Oral, Daily levothyroxine 75 mcg (0.075 mg) oral tablet, 60 EA, take 1 tablet by mouth once daily LORazepam 0.5 mg oral tablet, 0.5 mg= 1 tabs, Oral, TID, PRN LORazepam 1 mg oral tablet, 90 EA, take 1 tablet by mouth three times a day PriLOSEC 20 mg oral delayed release capsule, [...] Mother, Grandchild and Sibling. Heart attack: Father. Health Status Family Member(s) Electronically signed by Jayla Clark PA-C 05/02/24 13:51 EST Normal [facility] ERICA Antinuclear Antibodieson 11-16-2023 Antinuclear Abs, IFA Positive Critically abnormal . [facility] Comment on above: Result Comment: Nega tive <1:80 Borderline 1:80 Positive >1:80 Performed By: #### C RP, CREAT, ADDONUAPLUS, CBC, ESR #### [address] #### ERICA, C4, C3, CH50 #### [facility] , Note 1 Comment Normal . [facility] Comment on above: Result Comment: Taylor massey Potential Disease Association Homogeneous Systemic Lupus Erythematosus, Drug Induced Systemic Lupus Erythematosus, Chronic Autoimmune hepatitis, Juvenile Idiopathic Arthritis Speckled Sjogren Syndrome, Systemic Lupus Erythematosus, Subacute Cutaneous Lupus, Lupus, Congenital Heart Block, Mixed Connective Tissue Disease, Scleroderma-diffuse, Scleroderma-Autoimmune Myositis Overlap Syndrome, Systemic Lupus Kktnljzvvvhgz-Oormdhuawoe-Feapihoyaj Myositis Overlap Syndrome, Systemic Autoimmune Rheumatic Disease, Undifferentiated Connective Tissue Disease Nucleolar Systemic Sclerosis, Scleroderma-Autoimmune Myositis Overlap Syndrome, Sjogren Syndrome, Raynaud phenomenon, Pulmonary Arterial Hypertension, Systemic Autoimmune Rheumatic Disease, Cancer Centromere Scleroderma-CREST, Limited Cutaneous SSc, Raynaud's Phenomenon, Primary Biliary Cholangitis Nuclear Dot Primary Biliary Cholangitis Nuclear Primary Biliary Cholangitis, Autoimmune Membrane Hepatitis/Liver disease, Systemic Autoimmune Rheumatic Disease, Autoimmune Cytopenias, Linear Scleroderma, Antiphospholipid Syndrome Performed at: [facility] [id number] Social Media Marketing Manager: Lonnie Thompson PhD, Phone: [phone] Performed By: #### C RP, CREAT, ADDONUAPLUS, CBC, ESR #### [facility] [address] [place] [address] [place] #### ERICA, C4, C3, CH50 #### [facility] , Nucleolar Pattern 1:320 High . [facility] Comment on above: Result Comment: ICAP nomenclature: [id number] Performed By: #### C RP, CREAT, ADDONUAPLUS, CBC, ESR #### [facility] [address] [place] [address] [place] #### ERICA, C4, C3, CH50 #### [facility] , Speckled Pattern 1:160 High . [facility] Comment on above: Result Comment: ICAP nomenclature: [id number] Performed By: #### C RP, CREAT, ADDONUAPLUS, CBC, ESR #### [facility] [address] [place] [address] [place] #### ERICA, C4, C3, CH50 #### [facility] , Automated basophil %Ordered By: Beck Holloway on 11-16-2023 Basophils/100 WBC (Bld) 1.0 % Normal . [facility] Comment on above: Performed By: #### C RP, CREAT, ADDONUAPLUS, CBC, ESR #### [facility] [address] [place] [address] [place] #### ERICA, C4, C3, CH50 #### [facility] , Automated basophil countOrde red By: Beck Holloway on 11-16-2023 Basophils (Bld) [#/Vol] 0.1 10*3/uL Normal 0.0-0.2 [facility] Comment on above: Performed By: #### C RP, CREAT, ADDONUAPLUS, CBC, ESR #### [facility] [address] [place] [address] [place] #### ERICA, C4, C3, CH50 #### [facility] , Automated blood monocyte cou ntOrdered By: Beck Holloway on 11-16-2023 Monocytes (Bld) [#/Vol] 0.4 10*3/uL Normal 0.0-0.8 [facility] Comment on above: Performed By: #### C RP, CREAT, ADDONUAPLUS, CBC, ESR #### [facility] [address] [place] [address] [place] #### ERICA, C4, C3, CH50 #### [facility] , Automated eosinophil %Ordere d By: Beck Holloway on 11-16-2023 Eosinophils/100 WBC (Bld) 2.8 % Normal . [facility] Comment on above: Performed By: #### C RP, CREAT, ADDONUAPLUS, CBC, ESR #### [facility] [address] [place] [address] [place] #### ERICA, C4, C3, CH50 #### [facility] , Automated eosinophil countOr dered By: Beck Holloway on 11-16-2023 Eosinophils (Bld) [#/Vol] 0.1 10*3/uL Normal 0.0-0.45 [facility] Comment on above: Performed By: #### C RP, CREAT, ADDONUAPLUS, CBC, ESR #### [place] [address] [place] #### ERICA, C4, C3, CH50 #### [facility] , Automated monocyte %Ordered By: Beck Holloway on 11-16-2023 Monocytes/100 WBC (Bld) 8.9 % Normal . [facility] Comment on above: Performed By: #### C RP, CREAT, ADDONUAPLUS, CBC, ESR #### [place] [address] [place] #### ERICA, C4, C3, CH50 #### [facility] , Automated neutrophil %Ordere d By: Beck Holloway on 11-16-2023 Neutrophils/100 WBC (Bld) 71.5 % Normal . [facility] Comment on above: Performed By: #### C RP, CREAT, ADDONUAPLUS, CBC, ESR #### [address] #### ERICA, C4, C3, CH50 #### [facility] , Bacteria [Presence] in Urine by AutomatedOrdered By: Beck Holloway on 11-16-2023 Bacteria Auto Ql (U) None seen [HPF] None Seen [facility] Bilirubin Test strip Ql (U)O rdered By: Beck Holloway on 11-16-2023 Bilirubin Ql (U) Negative Negative [facility] C reactive protein [Mass/vol ume] in Serum or PlasmaOrdered By: Beck Holloway on 11-16-2023 CRP [Mass/Vol] 0.8 mg/dL High 0.0-0.5 [facility] C-Reactive Proteinon 024 C-Reactive Protein 0.8 mg/dL High 0.0-0.5 [facility] Comment on above: Result Comment: PERF ORMED BY: [address] [place] [address] PATHOLOGIST HEEL TRIMMER AMANDA FLOWERS M.D. Performed By: #### C RP, CREAT, ADDONUAPLUS, CBC, ESR #### [address] #### ERICA, C4, C3, CH50 #### [facility] , Color of Urine by AutoOrdere d By: Beck Holloway on 11-16-2023 Color (U) Yellow Normal Yellow [facility] Comment on above: Order Comment: Name Collection Type:: Clean-Voided Midstream Performed By: #### C RP, CREAT, ADDONUAPLUS, CBC, ESR #### [address] #### ERICA, C4, C3, CH50 #### [facility] , Complement C3on 11-16-2023 Complement C3 150 mg/dL Normal 82-167 [facility] Comment on above: Result Comment: Perf ormed at: - [place] [id number] Social Media Marketing Manager: Lonnie Thompson PhD, Phone: [phone] Performed By: #### C RP, CREAT, ADDONUAPLUS, CBC, ESR #### [address] #### ERICA, C4, C3, CH50 #### [facility] , Complement C4on 11-16-2023 Complement C4 29 mg/dL Normal 12-38 [facility] Comment on above: Result Comment: PERF ORMED BY: [place] [address] PATHOLOGIST HEEL TRIMMER AMANDA FLOWERS M.D. Performed By: #### C RP, CREAT, ADDONUAPLUS, CBC, ESR #### [address] #### ERICA, C4, C3, CH50 #### [facility] , Complement Total (CH50)on Complement Total (CH50) >60 Normal >41 [facility] Comment on above: Result Comment: Age Male Female 1 - 30 days Not Estab. Not Estab. 31 days - 6 months >32 >20 7 months - 17 years >39 >39 >17 years >41 >41 NOTE: The adult ( >17 years ) reference interval range is used to flag abnormals on this report. If the patient is 17 years old or younger, use the table above to determine out of range values. Performed at: - [address] [id number] Social Media Marketing Manager: Lonnie Thompson PhD, Phone: [phone] PERFORMED BY: [place] [address] PATHOLOGIST HEEL TRIMMER AMANDA FLOWERS M.D. Performed By: #### C RP, CREAT, ADDONUAPLUS, CBC, ESR #### [address] #### ERICA, C4, C3, CH50 #### [facility] , Complete Blood Count Auto Di ffon 11-16-2023 Mean Corpuscular HGB Conc 33.2 g/dL Normal 32.0-35.0 [facility] Comment on above: Performed By: #### C RP, CREAT, ADDONUAPLUS, CBC, ESR #### [address] #### ERICA, C4, C3, CH50 #### [facility] , NRBC% 0.1 /100{WBC} Normal 0-0.5 [facility] Comment on above: Performed By: #### C RP, CREAT, ADDONUAPLUS, CBC, ESR #### [place] [address] [place] #### ERICA, C4, C3, CH50 #### [facility] , Creatinineon 11-16-2023 GFR/1.73 sq M.predicted MDRD (S/P/Bld) [Vol rate/Area] 45.261 mL/min/{1.73_m2} Normal [facility] Comment on above: Performed By: #### C RP, CREAT, ADDONUAPLUS, CBC, ESR #### [place] [address] [place] #### ERICA, C4, C3, CH50 #### [facility] , Creatinine [Mass/volume] in Serum or PlasmaOrdered By: Beck Holloway on 11-16-2023 Creatinine [Mass/Vol] 1.23 mg/dL High 0.60-1.20 [facility] Comment on above: Performed By: #### C RP, CREAT, ADDONUAPLUS, CBC, ESR #### [address] #### ERICA, C4, C3, CH50 #### [facility] , Dipstick and Microscopicon 0 11-16-2023 Bacteria,Urine None Seen Normal None Seen [facility] Comment on above: Order Comment: Name Collection Type:: Clean-Voided Midstream Performed By: #### C RP, CREAT, ADDONUAPLUS, CBC, ESR #### [address] #### ERICA, C4, C3, CH50 #### [facility] , Bilirubin,Urine Negative Normal Negative [facility] Comment on above: Order Comment: Name Collection Type:: Clean-Voided Midstream Performed By: #### C RP, CREAT, ADDONUAPLUS, CBC, ESR #### [place] [address] [place] #### ERICA, C4, C3, CH50 #### [facility] , Glucose Ql (U) Normal Normal Normal [facility] Comment on above: Order Comment: Name Collection Type:: Clean-Voided Midstream Performed By: #### C RP, CREAT, ADDONUAPLUS, CBC, ESR #### [place] [address] [place] #### ERICA, C4, C3, CH50 #### [facility] , Hyaline Casts,Urine None Normal 0-8 [facility] Comment on above: Order Comment: Name Collection Type:: Clean-Voided Midstream Performed By: #### C RP, CREAT, ADDONUAPLUS, CBC, ESR #### [address] #### ERICA, C4, C3, CH50 #### [facility] , Mucus,Urine 2+ Critically abnormal [facility] Comment on above: Order Comment: Name Collection Type:: Clean-Voided Midstream Result Comment: PERF ORMED BY: [place] [address] PATHOLOGIST HEEL TRIMMER AMANDA FLOWERS M.D. Performed By: #### C RP, CREAT, ADDONUAPLUS, CBC, ESR #### [address] #### ERICA, C4, C3, CH50 #### [facility] , Nitrite,Urine Negative Normal Negative [facility] Comment on above: Order Comment: Name Collection Type:: Clean-Voided Midstream Performed By: #### C RP, CREAT, ADDONUAPLUS, CBC, ESR #### [address] #### ERICA, C4, C3, CH50 #### [facility] , Occult Blood,Urine Negative Normal Negative [facility] Comment on above: Order Comment: Name Collection Type:: Clean-Voided Midstream Performed By: #### C RP, CREAT, ADDONUAPLUS, CBC, ESR #### [place] [address] [place] #### ERICA, C4, C3, CH50 #### [facility] , RBC,Urine 1-2 Normal 0-4 [facility] Comment on above: Order Comment: Name Collection Type:: Clean-Voided Midstream Performed By: #### C RP, CREAT, ADDONUAPLUS, CBC, ESR #### [address] #### ERICA, C4, C3, CH50 #### [facility] , Specificy [place],Urine 1.031 High 1.001-1.030 [facility] Comment on above: Order Comment: Name Collection Type:: Clean-Voided Midstream Performed By: #### C RP, CREAT, ADDONUAPLUS, CBC, ESR #### [address] #### ERICA, C4, C3, CH50 #### [facility] , Squamous Epithelial Cell,Urine 1-2 Normal 0-2 [facility] Comment on above: Order Comment: Name Collection Type:: Clean-Voided Midstream Performed By: #### C RP, CREAT, ADDONUAPLUS, CBC, ESR #### [address] #### ERICA, C4, C3, CH50 #### [facility] , Urobilinogen,Urine 3 mg/dL High Normal [facility] Comment on above: Order Comment: Name Collection Type:: Clean-Voided Midstream Performed By: #### C RP, CREAT, ADDONUAPLUS, CBC, ESR #### [address] #### ERICA, C4, C3, CH50 #### [facility] , WBC,Urine 3-4 Normal 0-4 [facility] Comment on above: Order Comment: Name Collection Type:: Clean-Voided Midstream Performed By: #### C RP, CREAT, ADDONUAPLUS, CBC, ESR #### [address] #### ERICA, C4, C3, CH50 #### [facility] , Epithelial cells.squamous [# /area] in Urine sediment by Automated countOrdered By: Beck Holloway on 11-16-2023 Epithelial cells.squamous Auto (Urine sed) [#/Area] 1-2 [HPF] 0-2 [facility] Erythrocyte Sedimentation Ra barry 11-16-2023 ESR (Bld) [Velocity] 25 mm/h Normal 0-29 [facility] Comment on above: Result Comment: PERF ORMED BY: [place] [address] PATHOLOGIST HEEL TRIMMER AMANDA FLOWERS M.D. Performed By: #### C RP, CREAT, ADDONUAPLUS, CBC, ESR #### [address] #### ERICA, C4, C3, CH50 #### [facility] , Erythrocyte distribution wid th [Ratio] by Automated countOrdered By: Beck Holloway on 11-16-2023 Erythrocyte distribution width (RBC) [Ratio] 14.8 % Normal 11.9-15.3 [facility] Comment on above: Performed By: #### C RP, CREAT, ADDONUAPLUS, CBC, ESR #### [address] #### ERICA, C4, C3, CH50 #### [facility] , Erythrocyte sedimentation ra te by Photometric methodOrdered By: Beck Holloway on 11-16-2023 ESR Photometric method (Bld) [Velocity] 25 mm/hr 0-29 [facility] Erythrocytes [#/area] in Uri ne sediment by Automated countOrdered By: Beck Holloway on 11-16-2023 RBC Auto (Urine sed) [#/Area] 1-2 [HPF] 0-4 [facility] Erythrocytes [#/volume] in B lood by Automated countOrdered By: Beck Holloway on 11-16-2023 RBC (Bld) [#/Vol] 4.19 10*6/uL Normal 3.60-5.00 [facility] Comment on above: Performed By: #### C RP, CREAT, ADDONUAPLUS, CBC, ESR #### [place] [address] [place] #### ERICA, C4, C3, CH50 #### [facility] , Glucose [Mass/volume] in Uri ne by Test stripOrdered By: Beck Holloway on 11-16-2023 Glucose Test strip (U) [Mass/Vol] Normal mg/dL Normal [facility] Hematocrit [Volume Fraction] of Blood by Automated countOrdered By: Beck Holloway on 11-16-2023 Hematocrit (Bld) [Volume fraction] 37.8 % Normal 34.0-46.4 [facility] Comment on above: Performed By: #### C RP, CREAT, ADDONUAPLUS, CBC, ESR #### [address] #### ERICA, C4, C3, CH50 #### [facility] , Hemoglobin Test strip Ql (U) Ordered By: Beck Holloway on 11-16-2023 Hemoglobin Ql (U) Negative Negative [facility] Hemoglobin [Mass/volume] in BloodOrdered By: Beck Holloway on 11-16-2023 Hemoglobin (Bld) [Mass/Vol] 12.5 g/dL Normal 11.8-15.4 [facility] Comment on above: Performed By: #### C RP, CREAT, ADDONUAPLUS, CBC, ESR #### [address] #### ERICA, C4, C3, CH50 #### [facility] , Hyaline casts [#/area] in Ur ine sediment by Automated countOrdered By: Beck Holloway on 11-16-2023 Hyaline casts Auto (Urine sed) [#/Area] None [LPF] 0-8 [facility] Ketones [Presence] in Urine by Test stripOrdered By: Beck Holloway on 11-16-2023 Ketones Ql (U) Trace High Negative [facility] Comment on above: Order Comment: Name Collection Type:: Clean-Voided Midstream Performed By: #### C RP, CREAT, ADDONUAPLUS, CBC, ESR #### [place] [address] [place] #### ERICA, C4, C3, CH50 #### [facility] , Leukocyte esterase [Presence ] in Urine by Test stripOrdered By: Beck Holloway on 11-16-2023 Leukocyte esterase Test strip Ql (U) 2+ High Negative [facility] Comment on above: Order Comment: Name Collection Type:: Clean-Voided Midstream Performed By: #### C RP, CREAT, ADDONUAPLUS, CBC, ESR #### [address] #### ERICA, C4, C3, CH50 #### [facility] , Leukocytes [#/area] in Urine sediment by Automated countOrdered By: Beck Holloway on 11-16-2023 WBC Auto (Urine sed) [#/Area] 3-4 [HPF] 0-4 [facility] Leukocytes [#/volume] correc sara for nucleated erythrocytes in Blood by Automated counOrdered By: Beck Holloway on 11-16-2023 WBC corrected for nucl RBC Auto (Bld) [#/Vol] 5.0 10*3/uL 3.8-11.6 [facility] Leukocytes [#/volume] in Blo od by Automated countOrdered By: Beck Holloway on 11-16-2023 WBC (Bld) [#/Vol] 5.0 10*3/uL Normal 3.8-11.6 [facility] Comment on above: Performed By: #### C RP, CREAT, ADDONUAPLUS, CBC, ESR #### [place] [address] [place] #### ERICA, C4, C3, CH50 #### [facility] , Lymphocytes [#/volume] in Bl ood by Automated countOrdered By: Beck Holloway on 11-16-2023 Lymphocytes (Bld) [#/Vol] 0.8 10*3/uL Low 1.00-4.8 [facility] Comment on above: Performed By: #### C RP, CREAT, ADDONUAPLUS, CBC, ESR #### [place] [address] [place] #### ERICA, C4, C3, CH50 #### [facility] , Lymphocytes/100 leukocytes i n Blood by Automated countOrdered By: Beck Holloway on 11-16-2023 Lymphocytes/100 WBC (Bld) 15.8 % Normal . [facility] Comment on above: Performed By: #### C RP, CREAT, ADDONUAPLUS, CBC, ESR #### [place] [address] [place] #### ERICA, C4, C3, CH50 #### [facility] , MCH [Entitic mass] by Automa sara countOrdered By: Beck Holloway on 11-16-2023 MCH (RBC) [Entitic mass] 29.9 pg Normal 24.7-34.3 [facility] Comment on above: Performed By: #### C RP, CREAT, ADDONUAPLUS, CBC, ESR #### [place] [address] [place] #### ERICA, C4, C3, CH50 #### [facility] , MCHC Auto (RBC) [Mass/Vol]Or dered By: Beck Holloway on 11-16-2023 MCHC (RBC) [Mass/Vol] 33.2 g/dL 32.0-35.0 [facility] MCV [Entitic volume] by Auto mated countOrdered By: Beck Holloway on 11-16-2023 MCV (RBC) [Entitic vol] 90.2 fL Normal 80-100 [facility] Comment on above: Performed By: #### C RP, CREAT, ADDONUAPLUS, CBC, ESR #### [place] [address] [place] #### ERICA, C4, C3, CH50 #### [facility] , Mucus [Presence] in Urine by AutomatedOrdered By: Beck Holloway on 11-16-2023 Mucus Auto Ql (U) 2+ [LPF] Abnormal [facility] Neutrophils [#/volume] in Bl ood by Automated countOrdered By: Beck Holloway on 11-16-2023 Neutrophils (Bld) [#/Vol] 3.6 10*3/uL Normal 1.8-7.7 [facility] Comment on above: Performed By: #### C RP, CREAT, ADDONUAPLUS, CBC, ESR #### [facility] [address] [place] [address] [place] #### ERICA, C4, C3, CH50 #### [facility] , Nitrite Test strip Ql (U)Ord ered By: Beck Holloway on 11-16-2023 Nitrite Ql (U) Negative Negative [facility] No Panel InformationOrdered By: Beck Holloway on 11-16-2023 Estimated GFR (CKD-EPI) 45.261 mL/Min [facility] Creatinine Clearance (Chem N/A [facility] Nucleated erythrocytes [Pres ence] in Blood by Automated countOrdered By: Beck Holloway on 11-16-2023 Nucleated RBC Auto Ql (Bld) 0.1 /100{WBC} 0-0.5 [facility] Platelet mean volume [Entiti c volume] in Blood by Automated countOrdered By: Beck Holloway on 11-16-2023 Platelet mean volume (Bld) [Entitic vol] 8.7 fL Normal 6.3-10.7 [facility] Comment on above: Performed By: #### C RP, CREAT, ADDONUAPLUS, CBC, ESR #### [facility] [address] [place] [address] [place] #### ERICA, C4, C3, CH50 #### [facility] , Platelets [#/volume] in Bloo d by Automated countOrdered By: Beck Holloway on 11-16-2023 Platelets (Bld) [#/Vol] 229 10*3/uL Normal 150-450 [facility] Comment on above: Performed By: #### C RP, CREAT, ADDONUAPLUS, CBC, ESR #### [facility] [address] [place] [address] [place] #### ERICA, C4, C3, CH50 #### [facility] , Protein [Mass/volume] in Uri ne by Test stripOrdered By: Beck Holloway on 11-16-2023 Protein (U) [Mass/Vol] 20 mg/dL High Negative [facility] Comment on above: Order Comment: Name Collection Type:: Clean-Voided Midstream Performed By: #### C RP, CREAT, ADDONUAPLUS, CBC, ESR #### [address] #### ERICA, C4, C3, CH50 #### [facility] , Specific gravity Test strip (U) [Rel density]Ordered By: Beck Holloway on 11-16-2023 Specific gravity (U) [Rel density] 1.031 High 1.001-1.030 [facility] Urine appearanceOrdered By: Beck Holloway on 11-16-2023 Appearance (U) Clear Normal Clear [facility] Comment on above: Order Comment: Name Collection Type:: Clean-Voided Midstream Performed By: #### C RP, CREAT, ADDONUAPLUS, CBC, ESR #### [address] #### ERICA, C4, C3, CH50 #### [facility] , Urobilinogen Test strip (U) [Mass/Vol]Ordered By: Beck Holloway on 11-16-2023 Urobilinogen (U) [Mass/Vol] 3 mg/dL High Normal [facility] pH of Urine by Test stripOrd ered By: Beck Holloway on 11-16-2023 pH (U) 5.5 [pH] Normal 5.0-9.0 [facility] Comment on above: Order Comment: Name Collection Type:: Clean-Voided Midstream Performed By: #### C RP, CREAT, ADDONUAPLUS, CBC, ESR #### [address] #### ERICA, C4, C3, CH50 #### [facility] , Cult,Urineon 11-02-2023 Cult,Urine Specimen Description .CLEAN CATCH URINE Special Requests Site: Urine Culture NO GROWTH Report Status FINAL 11/02/2023 Normal [facility] Comment on above: Performed By: #### U RC #### [facility] [address] [place] [address] Social Media Marketing Manager: Tim Blair MD [facility] [address] [address] Social Media Marketing Manager: Ender Thomas MD CT lung screeningon 11-01-19 CT lung screening [facility] [place] [address] [place], [place] [id number] CT Scan Report Signed Patient: Daphne Fermin MR#: [id number] 6 : 1945 Acct:[id number] Age/Sex: 78 / F ADM Date: 11/01/23 Loc: [facility] Room: Type: [facility] Attending Dr: Josselyn Gomez MD Copies to: Josselyn Gomez MD Ordering Provider: Josselyn Gomez MD Date of Service: 11/01/23 CT/CT lung screening: F17.210 - Nicotine dependence, cigarettes, uncomplicated CT CHEST WITHOUT CONTRAST, LOW DOSE SCREENING: CLINICAL DATA: A 78-year old current smoker, smoking for 62 pack-years. COMPARISON: None TECHNIQUE: Noncontrast axial CT scan images of the chest were obtained under the low dose screening CT protocol. Coronal and sagittal reconstructed images were also submitted. FINDINGS: Mediastinum : Suboptimal evaluation due to low-dose technique. Thoracic aorta appears normal in caliber. Pulmonary trunk appears nondilated. No pericardial effusion. No lymphadenopathy. Partially calcified mediastinal and right hilar lymph nodes. The esophagus is grossly unremarkable. Lungs: No focal consolidation, pneumothorax or pleural effusion. Trachea and distal airways appear patent. Mild bronchial wall thickening. Emphysema. Bibasilar scarring. Calcified granulomas. Tree-in-bud nodularity right upper lobe. No suspicious noncalcified pulmonary nodule or mass. Upper abdomen: No acute findings. Bony thorax and chest wall: Soft tissues surrounding the chest wall demonstrate no acute findings. Osseous structures demonstrate degenerative change. CT/CT lung screening IMPRESSION: NO SUSPICIOUS PULMONARY NODULE. LUNG - RADS Version 1.0 Assessment: Category 1, Negative (No nodules and definitely benign nodules). Management: Continue annual lung screening with LDCT in 12 months. Impression dictated by: Heladio Vann Jr., D.O.11/01/2023 1:44 PM Dictation Location: [place] [address] Transcribed By: [facility] 11/01/23 1344 Dictated By: Heladio Vann Jr, DO 11/01/23 1342 Signed By: 11/01/23 1344 Normal [facility] Vaginitis DNA Probeon 2023 Marivel Negative Normal [facility] Comment on above: Result Comment: for Marivel sp. Method of testing is a DNA probe intended for detection and identification of Marivel species, Gardnerella vaginalis, and Trichomonas vaginalis nucleic acid in vaginal fluid specimens from patients with symptoms of vaginitis/vaginosis. Performed By: #### V AGP #### [address] [address] Social Media Marketing Manager: Tim Blair MD [address] [place] [address] Social Media Marketing Manager: Ender Thomas MD Gardnerella Negative [facility] Comment on above: Result Comment: for Gardnerella vaginalis Performed By: #### V AGP #### [address] [address] Social Media Marketing Manager: Tim Blair MD [facility] [address] [place] [address] [place] [id number] Social Media Marketing Manager: Ender Thomas MD Trichomonas Negative [facility] Comment on above: Result Comment: for Trichomonas Vaginalis Performed By: #### V AGP #### [address] [address] Social Media Marketing Manager: Tim Blair MD [facility] [address] [place] [address] [place] [id number] Social Media Marketing Manager: Ender Thomas MD Source .VAGINAL SWAB Normal [facility] Comment on above: Performed By: #### V AGP #### [facility] [address] [place], [place] [id number] Social Media Marketing Manager: Tim Blair MD [facility] [address] [place] [address] Social Media Marketing Manager: Ender Thomas MD ERICA Antinuclear Antibodieson 10-13-2023 Antinuclear Abs, IFA Positive Critically abnormal . [facility] Comment on above: Result Comment: Nega tive <1:80 Borderline 1:80 Positive >1:80 Performed By: #### C RP, CREAT, ADDONUAPLUS, CBC, ESR #### [facility] [address] [place] [address] #### ERICA, C4, C3, CH50 #### [facility] , Homogeneous Pattern 1:640 High . [facility] Comment on above: Result Comment: ICAP nomenclature: [id number] Performed By: #### C RP, CREAT, ADDONUAPLUS, CBC, ESR #### [facility] [address] #### ERICA, C4, C3, CH50 #### [facility] , Note 1 Comment Normal . [facility] Comment on above: Result Comment: Taylor massey Potential Disease Association Homogeneous Systemic Lupus Erythematosus, Drug Induced Systemic Lupus Erythematosus, Chronic Autoimmune hepatitis, Juvenile Idiopathic Arthritis Speckled Sjogren Syndrome, Systemic Lupus Erythematosus, Subacute Cutaneous Lupus, Lupus, Congenital Heart Block, Mixed Connective Tissue Disease, Scleroderma-diffuse, Scleroderma-Autoimmune Myositis Overlap Syndrome, Systemic Lupus Hssjwwofvcpyr-Rlcajhddvgc-Cwpkddxulc Myositis Overlap Syndrome, Systemic Autoimmune Rheumatic Disease, Undifferentiated Connective Tissue Disease Nucleolar Systemic Sclerosis, Scleroderma-Autoimmune Myositis Overlap Syndrome, Sjogren Syndrome, Raynaud phenomenon, Pulmonary Arterial Hypertension, Systemic Autoimmune Rheumatic Disease, Cancer Centromere Scleroderma-CREST, Limited Cutaneous SSc, Raynaud's Phenomenon, Primary Biliary Cholangitis Nuclear Dot Primary Biliary Cholangitis Nuclear Primary Biliary Cholangitis, Autoimmune Membrane Hepatitis/Liver disease, Systemic Autoimmune Rheumatic Disease, Autoimmune Cytopenias, Linear Scleroderma, Antiphospholipid Syndrome Performed at: - [address] [id number] Social Media Marketing Manager: Lonnie Thompson PhD, Phone: [phone] Performed By: #### C RP, CREAT, CHRISTI, CBC, ESR #### [place] [id number] [place] #### ERICA, C4, C3, CH50 #### [facility] , Nucleolar Pattern 1:640 High . [facility] Comment on above: Result Comment: ICAP nomenclature: [id number] Performed By: #### C RP, CREAT, ADDONUAPLUS, CBC, ESR #### [facility] [address] [place] [address] [place] #### ERICA, C4, C3, CH50 #### [facility] , Alanine aminotransferase [En zymatic activity/volume] in Serum or PlasmaOrdered By: Josselyn Gomez on 10-13-2023 ALT [Catalytic activity/Vol] 8 U/L Normal 7-52 [facility] Comment on above: Performed By: #### C RP, CREAT, ADDONUAPLUS, CBC, ESR #### [facility] [address] [place] [address] [place] #### ERICA, C4, C3, CH50 #### [facility] , Albumin [Mass/volume] in Ser um or Plasma by Bromocresol green (BCG) dye binding methoOrdered By: Josselyn Gomez on 10-13-2023 Albumin BCG dye [Mass/Vol] 4.3 g/dL 3.5-5.7 [facility] Alkaline phosphatase [Enzyma tic activity/volume] in Serum or PlasmaOrdered By: Josselyn Gomez on 10-13-2023 ALP [Catalytic activity/Vol] 71 U/L Normal 34-104 [facility] Comment on above: Performed By: #### C RP, CREAT, ADDONUAPLUS, CBC, ESR #### [facility] [address] [place] [address] [place] #### ERICA, C4, C3, CH50 #### [facility] , Aspartate aminotransferase [ Enzymatic activity/volume] in Serum or PlasmaOrdered By: Josselyn Gomez on 10-13-2023 AST [Catalytic activity/Vol] 8 U/L Low 13-39 [facility] Comment on above: Performed By: #### C RP, CREAT, ADDONUAPLUS, CBC, ESR #### [address] #### ERICA, C4, C3, CH50 #### [facility] , Automated basophil %Ordered By: Josselyn Trivedi-Belemrawi on 10-13-2023 Basophils/100 WBC (Bld) 1.0 % Normal . [facility] Comment on above: Performed By: #### C RP, CREAT, ADDONUAPLUS, CBC, ESR #### [address] #### ERICA, C4, C3, CH50 #### [facility] , Automated basophil countOrde red By: leon Trivedi-Belemramaría on 10-13-2023 Basophils (Bld) [#/Vol] 0.1 10*3/uL Normal 0.0-0.2 [facility] Comment on above: Result Comment: PERF ORMED BY: [place] [address] PATHOLOGIST HEEL TRIMMER AMANDA FLOWERS M.D. Performed By: #### C RP, CREAT, ADDONUAPLUS, CBC, ESR #### [address] #### ERICA, C4, C3, CH50 #### [facility] , Automated blood monocyte cou ntOrdered By: leon Trivedi-Belemlesly on 10-13-2023 Monocytes (Bld) [#/Vol] 0.5 10*3/uL Normal 0.0-0.8 [facility] Comment on above: Performed By: #### C RP, CREAT, ADDONUAPLUS, CBC, ESR #### [address] #### ERICA, C4, C3, CH50 #### [facility] , Automated eosinophil %Ordere d By: leon Al-Marrawi on 10-13-2023 Eosinophils/100 WBC (Bld) 2.6 % Normal . [facility] Comment on above: Performed By: #### C RP, CREAT, ADDONUAPLUS, CBC, ESR #### [place] [address] [place] #### ERICA, C4, C3, CH50 #### [facility] , Automated eosinophil countOr dered By: Josselyn Gomez on 10-13-2023 Eosinophils (Bld) [#/Vol] 0.1 10*3/uL Normal 0.0-0.45 [facility] Comment on above: Performed By: #### C RP, CREAT, ADDONUAPLUS, CBC, ESR #### [address] #### ERICA, C4, C3, CH50 #### [facility] , Automated monocyte %Ordered By: leon Gomez on 10-13-2023 Monocytes/100 WBC (Bld) 9.1 % Normal . [facility] Comment on above: Performed By: #### C RP, CREAT, ADDONUAPLUS, CBC, ESR #### [address] #### ERICA, C4, C3, CH50 #### [facility] , Automated neutrophil %Ordere d By: Josselyn Gomez on 10-13-2023 Neutrophils/100 WBC (Bld) 72.9 % Normal . [facility] Comment on above: Performed By: #### C RP, CREAT, ADDONUAPLUS, CBC, ESR #### [place] [address] [place] #### ERICA, C4, C3, CH50 #### [facility] , Bilirubin.total [Mass/volume ] in Serum or PlasmaOrdered By: Josselyn Gomez on 10-13-2023 Bilirubin [Mass/Vol] 0.4 mg/dL Normal 0.3-1.0 [facility] Comment on above: Performed By: #### C RP, CREAT, ADDONUAPLUS, CBC, ESR #### [place] [address] [place] #### ERICA, C4, C3, CH50 #### [facility] , Calcium [Mass/volume] in Ser um or PlasmaOrdered By: leon Gomez on 10-13-2023 Calcium [Mass/Vol] 9.3 mg/dL Normal 8.6-10.3 [facility] Comment on above: Performed By: #### C RP, CREAT, ADDONUAPLUS, CBC, ESR #### [address] #### ERICA, C4, C3, CH50 #### [facility] , Carbon dioxide, total [Moles /volume] in Serum or PlasmaOrdered By: [facility] Matheus Simmons on 10-13-2023 CO2 [Moles/Vol] 28.9 mmol/L Normal 21.0-31.0 [facility] Comment on above: Performed By: #### C RP, CREAT, ADDONUAPLUS, CBC, ESR #### [address] #### ERICA, C4, C3, CH50 #### [facility] , Chloride [Moles/volume] in [place] or PlasmaOrdered By: leon Gomez on 10-13-2023 Chloride [Moles/Vol] 105 mmol/L Normal 98-107 [facility] Comment on above: Performed By: #### C RP, CREAT, ADDONUAPLUS, CBC, ESR #### [place] [address] [place] #### ERICA, C4, C3, CH50 #### [facility] , Complete Blood Count Auto Di ffon 10-13-2023 Mean Corpuscular HGB Conc 33.5 g/dL Normal 32.0-35.0 [facility] Comment on above: Performed By: #### C RP, CREAT, ADDONUAPLUS, CBC, ESR #### [place] [address] [place] #### ERICA, C4, C3, CH50 #### [facility] , NRBC% 0.1 /100{WBC} Normal 0-0.5 [facility] Comment on above: Performed By: #### C RP, CREAT, ADDONUAPLUS, CBC, ESR #### [place] [address] [place] #### ERICA, C4, C3, CH50 #### [facility] , Comprehensive Metabolic Pane angelo 10-13-2023 Albumin [Mass/Vol] 4.3 g/dL Normal 3.5-5.7 [facility] Comment on above: Performed By: #### C RP, CREAT, ADDONUAPLUS, CBC, ESR #### [place] [address] [place] #### ERICA, C4, C3, CH50 #### [facility] , GFR/1.73 sq M.predicted MDRD (S/P/Bld) [Vol rate/Area] 51.194 mL/min/{1.73_m2} Normal [facility] Comment on above: Performed By: #### C RP, CREAT, ADDONUAPLUS, CBC, ESR #### [place] [address] [place] #### ERICA, C4, C3, CH50 #### [facility] , Creatinine [Mass/volume] in Serum or PlasmaOrdered By: Josselyn Gomez on 10-13-2023 Creatinine [Mass/Vol] 1.11 mg/dL Normal 0.60-1.20 [facility] Comment on above: Performed By: #### C RP, CREAT, ADDONUAPLUS, CBC, ESR #### [place] [address] [place] #### ERICA, C4, C3, CH50 #### [facility] , Erythrocyte distribution wid th [Ratio] by Automated countOrdered By: Josselyn Simmons on 10-13-2023 Erythrocyte distribution width (RBC) [Ratio] 14.9 % Normal 11.9-15.3 [facility] Comment on above: Performed By: #### C RP, CREAT, ADDONUAPLUS, CBC, ESR #### [address] #### ERICA, C4, C3, CH50 #### [facility] , Erythrocytes [#/volume] in B lood by Automated countOrdered By: Josselyn Gomez on 10-13-2023 RBC (Bld) [#/Vol] 4.22 10*6/uL Normal 3.60-5.00 [facility] Comment on above: Performed By: #### C RP, CREAT, ADDONUAPLUS, CBC, ESR #### [address] #### ERICA, C4, C3, CH50 #### [facility] , Flowcytometry Neogenomicon 0 10-13-2023 Flowcytometry Neogenomic Normal [facility] Comment on above: Order Comment: Comme nt Run LGL Result Comment: See report. Scanned copy available in EMR. PERFORMED BY: [place] [address] PATHOLOGIST HEEL TRIMMER AMANDA FLOWERS M.D. Performed By: #### C RP, CREAT, ADDONUAPLUS, CBC, ESR #### [address] #### ERICA, C4, C3, CH50 #### [facility] , Folate [Mass/volume] in Seru m or PlasmaOrdered By: Josselyn Gomez on 10-13-2023 Folate [Mass/Vol] 10.1 ng/mL >5.9 [facility] Comment on above: Folate reference ran ge: >5.9 ng/mlThe WHO technical consultation on folate and vitamin [id number] has determined that folate concentrations lessthan 4 ng/ml are considered deficient. Glucose [Mass/volume] in Ser um or PlasmaOrdered By: Josselyn Gomez on 10-13-2023 Glucose [Mass/Vol] 80 mg/dL Normal 70-100 [facility] Comment on above: ADA recommended refe rence rangeRandom Glucose Reference Range is dependent on time and content of last meal. Glucose of more than 200 mg/dL in a nonstressed, ambulatory subject supports the diagnosis of Diabetes Mellitus. Result Comment: [place] om Glucose Reference Range is dependent on time and content of last meal. Glucose of more than 200 mg/dL in a nonstressed, ambulatory subject supports the diagnosis of Diabetes Mellitus. ADA recommended reference range Performed By: #### C RP, CREAT, ADDONUAPLUS, CBC, ESR #### [place] [address] [place] #### ERICA, C4, C3, CH50 #### [facility] , HIV 1/O/2 Antigen/Antibodyon 10-13-2023 HIV Screen 4th Generation Non-Reactive Normal Non Reactive [facility] Comment on above: Result Comment: HIV- 1/HIV-2 antibodies and HIV-1 p24 antigen were NOT detected. There is no laboratory evidence of HIV infection. HIV Negative Performed at: - [facility] [id number] Social Media Marketing Manager: Lonnie Thompson PhD, Phone: [phone] PERFORMED BY: [place] [address] PATHOLOGIST HEEL TRIMMER AMANDA FLOWERS M.D. Performed By: #### C RP, CREAT, ADDONUAPLUS, CBC, ESR #### [place] [address] [place] #### ERICA, C4, C3, CH50 #### [facility] , HIV 1 and HIV-2 antibody ass ay with HIV-1 p24 antigen detectionOrdered By: Josselyn Gomez on 10-13-2023 HIV 1+2 Ab+HIV1 p24 Ag IA Ql Non-Reactive Non Reactive [facility] Comment on above: HIV-1/HIV-2 antibodi es and HIV-1 p24 antigen were NOTdetected. There is no laboratory evidence of HIV infection.HIV NegativePerformed at: - [facility] [id number] [place], [place] [id number] Director: Lonnie Thompson PhD, Phone: [phone] Hematocrit [Volume Fraction] of Blood by Automated countOrdered By: Josselyn Simmons on 10-13-2023 Hematocrit (Bld) [Volume fraction] 38.0 % Normal 34.0-46.4 [facility] Comment on above: Performed By: #### C RP, CREAT, ADDONUAPLUS, CBC, ESR #### [address] #### ERICA, C4, C3, CH50 #### [facility] , Hemoglobin [Mass/volume] in BloodOrdered By: Josselyn Gomez on 10-13-2023 Hemoglobin (Bld) [Mass/Vol] 12.7 g/dL Normal 11.8-15.4 [facility] Comment on above: Performed By: #### C RP, CREAT, ADDONUAPLUS, CBC, ESR #### [address] #### ERICA, C4, C3, CH50 #### [facility] , Hepatitis Acute Panelon 09-28 HBsAg Screen Negative Normal Negative [facility] Comment on above: Performed By: #### C RP, CREAT, ADDONUAPLUS, CBC, ESR #### [place] [address] [place] #### ERICA, C4, C3, CH50 #### [facility] , Hepatitis A Antibody IgM Negative Normal Negative [facility] Comment on above: Performed By: #### C RP, CREAT, ADDONUAPLUS, CBC, ESR #### [place] [address] [place] #### ERICA, C4, C3, CH50 #### [facility] , Hepatitis B Core Antibody IgM Negative Normal Negative [facility] Comment on above: Performed By: #### C RP, CREAT, ADDONUAPLUS, CBC, ESR #### [address] #### ERICA, C4, C3, CH50 #### [facility] , Hepatitis C Virus Antibody Non-Reactive Normal Non Reactive [facility] Comment on above: Performed By: #### C RP, CREAT, ADDONUAPLUS, CBC, ESR #### [place] [address] [place] #### ERICA, C4, C3, CH50 #### [facility] , Interpretation Hepatitis C Comment Normal . [facility] Comment on above: Result Comment: Not infected with HCV unless early or acute infection is suspected (which may be delayed in an immunocompromised individual), or other evidence exists to indicate HCV infection. Performed at: - [facility] [id number] Social Media Marketing Manager: Lonnie Thompson PhD, Phone: [phone] PERFORMED BY: [place] [address] PATHOLOGIST HEEL TRIMMER AMANDA FLOWERS M.D. Performed By: #### C RP, CREAT, ADDONUAPLUS, CBC, ESR #### [address] #### ERICA, C4, C3, CH50 #### [facility] , Hepatitis B virus surface Ag [Presence] in Serum or Plasma by ImmunoassayOrdered By: Josselyn Gomez on 10-13-2023 HBV surface Ag IA Ql Negative Negative [facility] Hepatitis C virus IgG Ab [Pr esence] in Serum or Plasma by ImmunoassayOrdered By: Josselyn Gomez on 10-13-2023 HCV IgG IA Ql Non-Reactive Non Reactive [facility] Hepatitis C virus RNA [Units /volume] (viral load) in Serum or Plasma by ISABELA with probOrdered By: Josselyn Gomez on 10-13-2023 HCV RNA ISABELA+probe Qn N/A [facility] Hepatitis C virus RNA [log u nits/volume] (viral load) in Serum or Plasma by ISABELA withOrdered By: Josselyn Gomez on 10-13-2023 HCV RNA ISABELA+probe [Log units/Vol] N/A [facility] Iron [Mass/volume] in Serum or PlasmaOrdered By: Josselyn Gomez on 10-13-2023 Iron [Mass/Vol] 48 ug/dL Low 50-212 [facility] Comment on above: Performed By: #### C RP, CREAT, ADDONUAPLUS, CBC, ESR #### [place] [address] [place] #### ERICA, C4, C3, CH50 #### [facility] , Iron and TIBC Profileon 09-28 % Iron Saturation 15.1 % Low 20-50 [facility] Comment on above: Performed By: #### C RP, CREAT, ADDONUAPLUS, CBC, ESR #### [facility] [address] [place] [address] [place] #### ERICA, C4, C3, CH50 #### [facility] , Total Iron Binding Capacity 318 ug/dL Normal 255-450 [facility] Comment on above: Performed By: #### C RP, CREAT, ADDONUAPLUS, CBC, ESR #### [facility] [address] [place] [address] [place] #### ERICA, C4, C3, CH50 #### [facility] , Iron binding capacity [Mass/ volume] in Serum or PlasmaOrdered By: Josselyn Gomez on 10-13-2023 Iron binding capacity [Mass/Vol] 318 ug/dL 255-450 [facility] Iron saturation [Mass Fracti on] in Serum or PlasmaOrdered By: Josselyn Gomez on 10-13-2023 Iron saturation [Mass fraction] 15.1 % Low 20-50 [facility] Leukocytes [#/volume] correc sara for nucleated erythrocytes in Blood by Automated counOrdered By: leon Gomez on 10-13-2023 WBC corrected for nucl RBC Auto (Bld) [#/Vol] 5.4 10*3/uL 3.8-11.6 [facility] Leukocytes [#/volume] in Blo od by Automated countOrdered By: leon JarvisAprlesly on 10-13-2023 WBC (Bld) [#/Vol] 5.4 10*3/uL Normal 3.8-11.6 [facility] Comment on above: Performed By: #### C RP, CREAT, ADDONUAPLUS, CBC, ESR #### [place] [address] [place] #### ERICA, C4, C3, CH50 #### [facility] , Lymphocytes [#/volume] in Bl ood by Automated countOrdered By: leon JarvisAprlesly on 10-13-2023 Lymphocytes (Bld) [#/Vol] 0.8 10*3/uL Low 1.00-4.8 [facility] Comment on above: Performed By: #### C RP, CREAT, ADDONUAPLUS, CBC, ESR #### [place] [address] [place] #### ERICA, C4, C3, CH50 #### [facility] , Lymphocytes/100 leukocytes i n Blood by Automated countOrdered By: leon Gomez on 10-13-2023 Lymphocytes/100 WBC (Bld) 14.4 % Normal . [facility] Comment on above: Performed By: #### C RP, CREAT, ADDONUAPLUS, CBC, ESR #### [facility] [address] [place] [address] [place] #### ERICA, C4, C3, CH50 #### [facility] , MCH [Entitic mass] by Automa sara countOrdered By: leon JarvisAprlesly on 10-13-2023 MCH (RBC) [Entitic mass] 30.2 pg Normal 24.7-34.3 [facility] Comment on above: Performed By: #### C RP, CREAT, ADDONUAPLUS, CBC, ESR #### [address] #### ERICA, C4, C3, CH50 #### [facility] , MCHC Auto (RBC) [Mass/Vol]Or dered By: Josselyn Gomez on 10-13-2023 MCHC (RBC) [Mass/Vol] 33.5 g/dL 32.0-35.0 [facility] MCV [Entitic volume] by Auto mated countOrdered By: Josselyn Gomez on 10-13-2023 MCV (RBC) [Entitic vol] 90.1 fL Normal 80-100 [facility] Comment on above: Performed By: #### C RP, CREAT, ADDONUAPLUS, CBC, ESR #### [facility] [address] [place] [address] #### ERICA, C4, C3, CH50 #### [facility] , Neutrophils [#/volume] in Bl ood by Automated countOrdered By: Josselyn Gomez on 10-13-2023 Neutrophils (Bld) [#/Vol] 3.9 10*3/uL Normal 1.8-7.7 [facility] Comment on above: Performed By: #### C RP, CREAT, ADDONUAPLUS, CBC, ESR #### [facility] [address] [place] [address] #### ERICA, C4, C3, CH50 #### [facility] , No Panel InformationOrdered By: Josselyn Gomez on 10-13-2023 Anti-Nuclear Antibody Comment 2 Comment . [facility] Comment on above: Pattern Potential Di sease Association Homogeneous Systemic Lupus Erythematosus, Drug Induced Systemic Lupus Erythematosus, Chronic Autoimmune hepatitis, Juvenile Idiopathic Arthritis Speckled Sjogren Syndrome, Systemic Lupus Erythematosus, Subacute Cutaneous Lupus, Lupus, Congenital Heart Block, Mixed Connective Tissue Disease, Scleroderma-diffuse, Scleroderma-Autoimmune Myositis Overlap Syndrome, Systemic Lupus Wjlugztdtegwc-Nqpkhdcktxf-Gsiwtoyfpv Myositis Overlap Syndrome, Systemic Autoimmune Rheumatic Disease, Undifferentiated Connective Tissue Disease Nucleolar Systemic Sclerosis, Scleroderma-Autoimmune Myositis Overlap Syndrome, Sjogren Syndrome, Raynaud phenomenon, Pulmonary Arterial Hypertension, Systemic Autoimmune Rheumatic Disease, Cancer Centromere Scleroderma-CREST, Limited Cutaneous SSc, Raynaud's Phenomenon, Primary Biliary Cholangitis Nuclear Dot Primary Biliary Cholangitis Nuclear Primary Biliary Cholangitis, AutoimmuneMembrane Hepatitis/Liver disease, Systemic Autoimmune Rheumatic Disease, Autoimmune Cytopenias, Linear Scleroderma, Antiphospholipid Syndrome Performed at: [employer] [address] [id number] Director: Lonnie Thompson PhD, Phone: [phone] Estimated GFR (CKD-EPI) 51.194 mL/Min [facility] Hepatitis A IgM Antibody Negative Negative [facility] Hepatitis B Core IgM Antibody Negative Negative [facility] Hepatitis C Interpretation Comment . [facility] Comment on above: Not infected with HC V unless early or acute infection issuspected (which may be delayed in an immunocompromisedindividual), or other evidence exists to indicate HCVinfection.Performed at: [employer] [facility] [address] [id number] Director: Lonnie Thompson PhD, Phone: [phone] Pharmacy Creatinine Clearance (Chem N/A [facility] Nucleated erythrocytes [Pres ence] in Blood by Automated countOrdered By: Josselyn Gomez on 10-13-2023 Nucleated RBC Auto Ql (Bld) 0.1 /100{WBC} 0-0.5 [facility] Platelet mean volume [Entiti c volume] in Blood by Automated countOrdered By: Josselyn Gomez on 10-13-2023 Platelet mean volume (Bld) [Entitic vol] 8.4 fL Normal 6.3-10.7 [facility] Comment on above: Performed By: #### C RP, CREAT, ADDONUAPLUS, CBC, ESR #### [facility] [address] [place] [address] [place] #### ERICA, C4, C3, CH50 #### [facility] , Platelets [#/volume] in Bloo d by Automated countOrdered By: Josselyn Gomez on 10-13-2023 Platelets (Bld) [#/Vol] 212 10*3/uL Normal 150-450 [facility] Comment on above: Performed By: #### C RP, CREAT, ADDONUAPLUS, CBC, ESR #### [facility] [address] [place] [address] [place] #### ERICA, C4, C3, CH50 #### [facility] , Potassium [Moles/volume] in Serum or PlasmaOrdered By: Josselyn Gomez on 10-13-2023 Potassium [Moles/Vol] 4.2 mmol/L Normal 3.5-5.1 [facility] Comment on above: Performed By: #### C RP, CREAT, ADDONUAPLUS, CBC, ESR #### [facility] [address] [place] [address] [place] #### ERICA, C4, C3, CH50 #### [facility] , Protein [Mass/volume] in Ser um or PlasmaOrdered By: Josselyn Gomez on 10-13-2023 Protein [Mass/Vol] 6.6 g/dL Normal 6.4-8.9 [facility] Comment on above: Performed By: #### C RP, CREAT, ADDONUAPLUS, CBC, ESR #### [address] #### ERICA, C4, C3, CH50 #### [facility] , Rheumatoid Factoron 10-13-19 Rheumatoid Factor <10.0 Normal <14.0 [facility] Comment on above: Performed By: #### C RP, CREAT, ADDONUAPLUS, CBC, ESR #### [facility] [address] [place] [address] [place] #### ERICA, C4, C3, CH50 #### [facility] , Serum angiotensin converting enzyme (OSWALDO) measurementOrdered By: Josselyn Gomez on 10-13-2023 Angiotensin converting enzyme [Catalytic activity/Vol] 54 U/L Normal 14-82 [facility] Comment on above: Performed at: [facility] [address] [id number] [place], [place] [id number] Director: Lonnie Thompson PhD, Phone: [phone] Result Comment: Perf ormed at: CB - [facility] [address] [place] [id number] Social Media Marketing Manager: Lonnie Thompson PhD, Phone: [phone] Performed By: #### C RP, CREAT, ADDONUAPLUS, CBC, ESR #### [facility] [address] [place] [address] [place] #### ERICA, C4, C3, CH50 #### [facility] , Serum globulin measurement b y calculation (mass/volume)Ordered By: Josselyn Simmons on 10-13-2023 Globulin (S) [Mass/Vol] 2.3 g/dL [facility] Comment on above: Performed By: #### C RP, CREAT, ADDONUAPLUS, CBC, ESR #### [place] [address] [place] #### ERICA, C4, C3, CH50 #### [facility] , Serum homogeneous pattern an tinuclear antibody (ERICA) titerOrdered By: Josselyn Simmons on 10-13-2023 Homogenous nuclear Ab pattern (S) [Titer] 1:640 High . [facility] Comment on above: ICAP nomenclature: A C-1 Serum nuclear antibody titer Ordered By: Josselyn Gomez on 10-13-2023 Nuclear Ab (S) [Titer] Positive Abnormal . [facility] Comment on above: Negative <1:80 Borde rline 1:80 Positive >1:80 Serum nucleolar pattern anti nuclear antibody (ERICA) titerOrdered By: Josselyn Simmons on 10-13-2023 Nucleolar nuclear Ab pattern (S) [Titer] 1:640 High . [facility] Comment on above: ICAP nomenclature: A C-8,9,10 Serum or plasma albumin/glob ulin mass ratioOrdered By: Josselyn Gomez on 10-13-2023 Albumin/Globulin [Mass ratio] 1.9 {ratio} [facility] Comment on above: Performed By: #### C RP, CREAT, ADDONUAPLUS, CBC, ESR #### [facility] [address] [place] [address] [place] #### ERICA, C4, C3, CH50 #### [facility] , Serum or plasma anion gap de terminationOrdered By: Josselyn Gomez on 10-13-2023 Anion gap [Moles/Vol] 10.3 mmol/L Normal 6.0-15.0 [facility] Comment on above: Performed By: #### C RP, CREAT, ADDONUAPLUS, CBC, ESR #### [place] [address] [place] #### ERICA, C4, C3, CH50 #### [facility] , Serum or plasma rheumatoid f actor measurement (units/volume)Ordered By: leon Gomez on 10-13-2023 Rheumatoid factor Qn [IU]/mL <14.0 [facility] Sodium [Moles/volume] in Ser um or PlasmaOrdered By: leon Gomez on 10-13-2023 Sodium [Moles/Vol] 140 mmol/L Normal 136-145 [facility] Comment on above: Performed By: #### C RP, CREAT, ADDONUAPLUS, CBC, ESR #### [place] [address] [place] #### ERICA, C4, C3, CH50 #### [facility] , Thyrotropin [Units/volume] i n Serum or PlasmaOrdered By: leon Gomez on 10-13-2023 TSH Qn 2.38 m[IU]/L Normal 0.45-5.33 [facility] Comment on above: Result Comment: PERF ORMED BY: [place] [address] PATHOLOGIST HEEL TRIMMER AMANDA FLOWERS M.D. Performed By: #### C RP, CREAT, ADDONUAPLUS, CBC, ESR #### [place] [address] [place] #### ERICA, C4, C3, CH50 #### [facility] , Thyroxine (T4) free [Mass/vo lume] in Serum or PlasmaOrdered By: Josselyn Pathaklesly on 10-13-2023 Free T4 [Mass/Vol] 1.19 ng/dL High 0.61-1.12 [facility] Comment on above: Performed By: #### C RP, CREAT, ADDONUAPLUS, CBC, ESR #### [place] [id number] [place] #### ERICA, C4, C3, CH50 #### [facility] , Transferrin [Mass/volume] in Serum or PlasmaOrdered By: Josselyn JarvisBelemlesly on 10-13-2023 Transferrin [Mass/Vol] 227 mg/dL Normal 203-362 [facility] Comment on above: Performed By: #### C RP, CREAT, ADDONUAPLUS, CBC, ESR #### [address] #### ERICA, C4, C3, CH50 #### [facility] , Urea nitrogen [Mass/volume] in Serum or PlasmaOrdered By: leon Zolesly on 10-13-2023 Urea nitrogen [Mass/Vol] 14 mg/dL Normal 7-25 [facility] Comment on above: Performed By: #### C RP, CREAT, ADDONUAPLUS, CBC, ESR #### [place] [address] [place] #### ERICA, C4, C3, CH50 #### [facility] , Vit. B12/Folate Profileon Folate 10.1 ng/mL Normal >5.9 [facility] Comment on above: Result Comment: Danielle te reference range: >5.9 ng/ml The WHO technical consultation on folate and vitamin b12 deficiencies has determined that folate concentrations less than 4 ng/ml are considered deficient. Performed By: #### C RP, CREAT, ADDONUAPLUS, CBC, ESR #### [place] [address] [place] #### ERICA, C4, C3, CH50 #### [facility] , Vitamin B12 ser/plasOrdered By: Josselyn Gomez on 10-13-2023 Cobalamin (Vitamin B12) [Mass/Vol] 240 pg/mL Normal 180-914 [facility] Comment on above: Performed By: #### C RP, CREAT, ADDONUAPLUS, CBC, ESR #### [facility] [address] #### ERICA, C4, C3, CH50 #### [facility] , Angelo 09-19-2023 L Specimen: [id number] Received: 09/20/23 Status: SOUT Req Num: [id number] Spec Type: Impression Subm Dr: MELANIE Garnett Tissues: PATHPER Procedures: PATHREVIEW Age/ Patient Sex Location Account Attending Physician aDphne Fermin 78/F [facility] [id number] MELANIE aGrnett SPEC NUM: [id number] RECD: 09/20/23 STATUS: SOUT REQ NUM: [id number] RADHA: 09/19/[address]: MELANIE Garnett ENTERED: 09/20/[address] [facility] [address]: Imtiaz Wick SPEC TYPE: Impression DEPT: SHREYA Gutierrez ENTERED BY: [id number] RECV BY: [id number] ORDERED: PATHREVIEW ORDERED: PATHREVIEW Pathologist Review Absolute lymphopenia is noted. Atypical infection should be ruled out. [id number] ---- ---- Specimen: [id number] Received: 09/20/23 Status: DALIA Robles Num: [id number] Spec Type: Impression Subm Dr: Ruth Humphries, [employer]-C Tissues: PATHPER Procedures: PATHREVIEW ---- Patient: Remedios Ferminyomi Barragan [id number] (Continued) ---- Signed (signature on file) Kelli Gandara MD 09/21/23 1348 Normal [facility] Audiology Office/Clinic Note on 05-05-2023 Audiology Office/Clinic [...] by Isabelle Kenney 05/05/23 10:54 EST Normal [facility] COVID + FLU Quick Testingon 03-08-2023 SARS-CoV-2 (COVID-19) RNA ISABELA+probe Ql (Unsp spec) Negative [employer] Other COVID + FLU Quick Testing Negative [employer] Other Urinalysis - AUTOMATEDon Appearance (U) clear [employer] Other Bilirubin Ql (U) Negative [employer] Other Color (U) yellow [employer] Other Glucose Ql (U) Negative [employer] Other Hemoglobin Ql (U) Negative [employer] Other Ketones Ql (U) Negative [employer] Other Leukocyte esterase Test strip Ql (U) Negative [employer] Other Nitrite Ql (U) Negative [employer] Other pH (U) 5.5 [pH] [employer] Other Protein Ql (U) Negative [employer] Other Specific gravity (U) [Rel density] >1.030 [employer] Other Urobilinogen (U) [Mass/Vol] 0.2 mg/dL [employer] Other Urinalysis - AUTOMATED No rt [employer] Other Urinalysis - AUTOMATEDon Appearance (U) cloudy [employer] Other Bilirubin Ql (U) Negative [employer] Other Color (U) yellow [employer] Other Glucose Ql (U) Negative [employer] Other Hemoglobin Ql (U) Negative [employer] Other Ketones Ql (U) Negative [employer] Other Leukocyte esterase Test strip Ql (U) trace [employer] Other Nitrite Ql (U) Negative [employer] Other pH (U) 6.0 [pH] [employer] Other Protein Ql (U) Negative [employer] Other Specific gravity (U) [Rel density] 1.025 [employer] Other Urobilinogen (U) [Mass/Vol] 0.2 E.U d/l [employer] Other Urinalysis - AUTOMATED No rt [employer] Other Covid-19 PCR ([facility])on 07-30 SARS-CoV-2 (COVID-19) RNA ISABELA+probe Ql (Unsp spec) Detected Critically abnormal NOT DETECTED [facility] Comment on above: Result Comment: This test is not yet approved or cleared by the [place] FDA. When there are no FDA-approved or cleared tests available, and other criteria are met, FDA can make tests available under an emergency access mechanism called an Emergency Use Authorization (EUA). The EUA for this test is supported by the Resist Coater Developer of Health and Human Service's declaration that [...] used). Performed By: #### C VDTB #### [facility] [address] [place] [address] Dr. Dirk Patton ER URINE PROFILEon 2 Bilirubin Ql (U) Negative Normal NEGATIVE [facility] Comment on above: Performed By: #### E RUR #### [facility] [address] [place] [address] Dr. Dirk Patton Clarity (U) CLEAR Normal CLEAR [facility] Comment on above: Performed By: #### E RUR #### [facility] [address] [place] [address] Dr. Dirk Patton Color (U) YELLOW Normal YELLOW [facility] Comment on above: Performed By: #### E RUR #### [facility] [address] [place] [address] Dr. Dirk PATEL A micrscopic examination will be performed if indicated. Normal [facility] Comment on above: Performed By: #### E RUR #### [facility] [address] [place] [address] Dr. Dirk Patton Glucose Ql (U) Negative Normal NEGATIVE [facility] Comment on above: Performed By: #### E RUR #### [facility] [address] [place] [address] Dr. Dirk Patton Hemoglobin Ql (U) Negative Normal NEGATIVE [facility] Comment on above: Performed By: #### E RUR #### [facility] [address] [place] [address] Dr. Dirk Patton Ketones Ql (U) Negative Normal NEGATIVE [facility] Comment on above: Performed By: #### E RUR #### [facility] [address] [place] [address] Dr. Dirk Patton LEUKOCYTES Negative Normal NEGATIVE [facility] Comment on above: Performed By: #### E RUR #### [facility] [address] [place] [address] Dr. Dirk Patton Nitrite Ql (U) Negative Normal NEGATIVE [facility] Comment on above: Performed By: #### E RUR #### [facility] [address] [place] [address] Dr. Dirk Patton pH (U) 6.0 [pH] Normal 5-9 [facility] Comment on above: Performed By: #### E RUR #### [facility] [address] [place] [address] Dr. Dirk Patton SPEC GRAVITY 1.015 Normal 1.005-<=1.0 25 [facility] Comment on above: Performed By: #### E RUR #### [facility] [address] [place] [address] Dr. Dirk Patton UA PROTEIN Negative Normal NEGATIVE/ TRACE [facility] Comment on above: Performed By: #### E RUR #### [facility] [address] [place] [address] Dr. Dirk Patton UR MICRO IND NOT INDICATED Normal [facility] Comment on above: Performed By: #### E RUR #### [facility] [address] [place] [address] Dr. Dirk Patton Urobilinogen Qn (U) 0.2 {Jairo'U}/dL Normal 0.2 - 1. 0 [facility] Comment on above: Performed By: #### E RUR #### [facility] [address] [place] [address] Dr. Dirk Patton XR LSPINE 2_3 VIEWSon [...] by: KRYSTAL WEST Date: 2021-08-20 08:50 Normal [facility] Microscopic Urinalysison Amorphous, UA NOT REPORTED None [facility] [facility] Work Phone: Bacteria, UA 1+ Abnormal None [employer] Work Phone: Casts UA NOT REPORTED /LPF [facility] [employer] Work Phone: Crystals, UA NOT REPORTED None /HPF [facility] Work Phone: Epithelial Cells UA 0 TO 2 [facility] [employer] Work Phone: Interpretation and review of laboratory results Abnormal [facility] [employer] Work Phone: Mucus, UA NOT REPORTED None [facility] [employer] Work Phone: Other Observations UA NOT REPORTED NOT REQ. M [facility] [employer] Work Phone: RBC (U) [#/Vol] None [facility] Work Phone: Renal Epithelial, UA NOT REPORTED 0 /HPF [facility] Work Phone: Trichomonas, UA NOT REPORTED None [facility] [employer] Work Phone: WBC, UA 10 TO 20 [facility] [employer] Work Phone: Yeast, UA NOT REPORTED None [facility] [employer] Work Phone: - [facility] [employer] Work Phone: Urinalysis Reflex to Culture on 05-15-2020 Bilirubin Urine Negative NEGATIVE [facility] Work Phone: Color, UA YELLOW YELLOW [facility] [employer] Work Phone: Glucose, Ur Negative NEGATIVE [facility] [employer] Work Phone: Interpretation and review of laboratory results Abnormal [facility] [employer] Work Phone: Ketones Ql (U) Negative NEGATIVE [facility] Work Phone: Leukocyte esterase Test strip Ql (U) MODERATE Abnormal NEGATIVE [facility] [employer] Work Phone: Nitrite, Urine Negative NEGATIVE [facility] Work Phone: pH, UA 6.0 [facility] [employer] Work Phone: Protein (U) [Mass/Vol] Negative NEGATIVE [facility] Work Phone: Specific [place], UA 1.020 [facility] [employer] Work Phone: Turbidity UA CLEAR CLEAR [facility] [employer] Work Phone: Urinalysis Comments NOT REPORTED [facility] Work Phone: Urine Hgb Negative NEGATIVE [facility] [employer] Work Phone: Urobilinogen, Urine Normal Normal [facility] [employer] Work Phone: Vital Signs Date Time Vital Sign Value Performing Clinician Facility 10-04-2024 09:25-0400 Body mass index (BMI) [Ratio] 24.51 kg/m2 Ruth Yandel [employer] Work Phone: [facility] 10-04-2024 09:25-0400 Body temperature 98.1 [degF] Ruth Humphries [employer] Work Phone: [facility] 10-04-2024 09:25-0400 Body weight 61.78 kg Ruth Yandel [employer] Work Phone: [facility] 10-04-2024 09:25-0400 Diastolic blood pressure 82 mm[Hg] Ruth Yandel [employer] Work Phone: [facility] 10-04-2024 09:25-0400 Heart rate 73 /min Ruth Yandel [employer] Work Phone: [facility] 10-04-2024 09:25-0400 Respiratory rate 18 /min Ruth Yandel [employer] Work Phone: [facility] 10-04-2024 09:25-0400 SaO2% (BldA) [Mass fraction] 97 % Ruth Humphries [employer] Work Phone: [facility] 10-04-2024 09:25-0400 Systolic blood pressure 118 mm[Hg] Ruth Humphries [employer] Work Phone: [facility] 06-19-2024 16:28-0400 Body mass index (BMI) [Ratio] 24.41 kg/m2 Ruthyomi Rosalesz [employer] Work Phone: [facility] 06-19-2024 16:28-0400 Body temperature 98.8 [degF] Ruth Rosalesz [employer] Work Phone: [facility] 06-19-2024 16:28-0400 Body weight 61.51 kg Ruth Rosalesz [employer] Work Phone: [facility] 06-19-2024 16:28-0400 Diastolic blood pressure 70 mm[Hg] Ruth Conniez [employer] Work Phone: [facility] 06-19-2024 16:28-0400 Heart rate 74 /min Ruth Rosalesz [employer] Work Phone: [facility] 06-19-2024 16:28-0400 Respiratory rate 18 /min Ruthyomi Rosalesz [employer] Work Phone: [facility] 06-19-2024 16:28-0400 SaO2% (BldA) [Mass fraction] 98 % Ruth Rosalesz [employer] Work Phone: [facility] 06-19-2024 16:28-0400 Systolic blood pressure 108 mm[Hg] Ruth Rosalesz [employer] Work Phone: [facility] 04-05-2024 09:46-0500 Body height 158.8 cm Ruth Rosalesz [employer] Work Phone: [facility] 04-05-2024 09:46-0500 Body mass index (BMI) [Ratio] 23.76 kg/m2 Ruthyomi Fitzpatrickholz [employer] Work Phone: [facility] 04-05-2024 09:46-0500 Body temperature 98.29 [degF] Ruth Fitzpatrickholz [employer] Work Phone: [facility] 04-05-2024 09:46-0500 Body weight 59.88 kg Ruthyomi Fitzpatrickholz [employer] Work Phone: [facility] 04-05-2024 09:46-0500 Diastolic blood pressure 90 mm[Hg] Ruth Aichholz [employer] Work Phone: [facility] 04-05-2024 09:46-0500 Heart rate 58 /min Ruth Aichholz [employer] Work Phone: [facility] 04-05-2024 09:46-0500 Respiratory rate 18 /min Ruth Aichholz [employer] Work Phone: [facility] 04-05-2024 09:46-0500 SaO2% (BldA) [Mass fraction] 99 % Ruth Aichholz [employer] Work Phone: [facility] 04-05-2024 09:46-0500 Systolic blood pressure 128 mm[Hg] Ruth Aichholz [employer] Work Phone: [facility] 01-04-2024 08:48-0500 Body height 158.8 cm Ruth Aichholz [employer] Work Phone: [facility] 01-04-2024 08:48-0500 Body mass index (BMI) [Ratio] 23.43 kg/m2 Ruth Aichholz [employer] Work Phone: [facility] 01-04-2024 08:48-0500 Body temperature 98.1 [degF] Ruth Aichholz [employer] Work Phone: [facility] 01-04-2024 08:48-0500 Body weight 59.06 kg Ruth Aichholz [employer] Work Phone: [facility] 01-04-2024 08:48-0500 Diastolic blood pressure 78 mm[Hg] Ruth Aichholz [employer] Work Phone: [facility] 01-04-2024 08:48-0500 Heart rate 73 /min Ruth Aichholz [employer] Work Phone: [facility] 01-04-2024 08:48-0500 Respiratory rate 18 /min Ruth Aichholz [employer] Work Phone: [facility] 01-04-2024 08:48-0500 SaO2% (BldA) [Mass fraction] 96 % Ruth Kerrihholz [employer] Work Phone: [facility] 01-04-2024 08:48-0500 Systolic blood pressure 116 mm[Hg] Ruth Aichholz [employer] Work Phone: [facility] 11-09-2023 10:20-0400 Body height 158.8 cm Ruth Aichholz [employer] Work Phone: [facility] 11-09-2023 10:20-0400 Body mass index (BMI) [Ratio] 23.69 kg/m2 Ruth Aichholz [employer] Work Phone: [facility] 11-09-2023 10:20-0400 Body temperature 98.8 [degF] Ruth Aichholz [employer] Work Phone: [facility] 11-09-2023 10:20-0400 Body weight 59.69 kg Ruth Aichholz [employer] Work Phone: [facility] 11-09-2023 10:20-0400 Diastolic blood pressure 80 mm[Hg] Ruth Aichholz [employer] Work Phone: [facility] 11-09-2023 10:20-0400 Heart rate 75 /min Ruth Aichholz [employer] Work Phone: [facility] 11-09-2023 10:20-0400 Respiratory rate 19 /min Ruth Aichholz [employer] Work Phone: [facility] 11-09-2023 10:20-0400 SaO2% (BldA) [Mass fraction] 95 % Ruth Aichholz [employer] Work Phone: [facility] 11-09-2023 10:20-0400 Systolic blood pressure 104 mm[Hg] Ruth Aichholz [employer] Work Phone: [facility] 11-02-2023 13:05-0400 Body temperature 97.7 [degF] Ruth Aichholz Work Phone: [facility] 11-02-2023 13:05-0400 Body weight 60.32 kg Ruth Aichholz Work Phone: [facility] 11-02-2023 13:05-0400 Diastolic blood pressure 71 mm[Hg] Ruth Aichholz Work Phone: [facility] 11-02-2023 13:05-0400 Heart rate 75 /min Ruth Aichholz Work Phone: [facility] 11-02-2023 13:05-0400 Respiratory rate 20 /min Ruth Aichholz Work Phone: [facility] 11-02-2023 13:05-0400 SaO2% (BldA) [Mass fraction] 99 % Ruth Aichholz Work Phone: [facility] 11-02-2023 13:05-0400 Systolic blood pressure 144 mm[Hg] Ruth Aichholz Work Phone: [facility] 10-12-2023 13:14-0400 Body temperature 97.8 [degF] Ruth Aichholz Work Phone: [facility] 10-12-2023 13:14-0400 Body weight 60.32 kg Ruth Aichholz Work Phone: [facility] 10-12-2023 13:14-0400 Diastolic blood pressure 75 mm[Hg] Ruth Aichholz Work Phone: [facility] 10-12-2023 13:14-0400 Heart rate 84 /min Ruth Aichholz Work Phone: [facility] 10-12-2023 13:14-0400 Respiratory rate 16 /min Ruth Aichholz Work Phone: [facility] 10-12-2023 13:14-0400 SaO2% (BldA) [Mass fraction] 98 % Ruth Aichholz Work Phone: [facility] 10-12-2023 13:14-0400 Systolic blood pressure 114 mm[Hg] Ruth Yandel Work Phone: [facility] 05-26-2023 17:24-0400 Diastolic blood pressure 68 mm[Hg] [facility] 05-26-2023 17:24-0400 Systolic blood pressure 120 mm[Hg] [facility] 05-26-2023 17:06-0400 Body height 158.75 cm [facility] 05-26-2023 17:06-0400 Body mass index (BMI) [Ratio] 23.3 kg/m2 [facility] 05-26-2023 17:06-0400 Body temperature 97.4 [degF] [facility] 05-26-2023 17:06-0400 Body weight 58.96 kg [facility] 05-26-2023 17:06-0400 Heart rate 79 /min [facility] 05-26-2023 17:06-0400 Respiratory rate 16 /min [facility] 05-26-2023 17:06-0400 SaO2% (BldA) [Mass fraction] 97 % [facility] 04-13-2023 08:48-0500 Body height 158.8 cm Ruth Humphries [employer] Work Phone: [facility] 04-13-2023 08:48-0500 Body mass index (BMI) [Ratio] 23.72 kg/m2 Ruth Humphries [employer] Work Phone: [facility] 04-13-2023 08:48-0500 Body temperature 97.3 [degF] Ruth Humphries [employer] Work Phone: [facility] 04-13-2023 08:48-0500 Body weight 59.78 kg Ruth Humphries [employer] Work Phone: [facility] 04-13-2023 08:48-0500 Diastolic blood pressure 78 mm[Hg] Ruth Humphries [employer] Work Phone: [facility] [employer] 04-13-2023 08:48-0500 Heart rate 76 /min Rtuh Fitzpatrickverena [employer] Work Phone: [facility] 04-13-2023 08:48-0500 Respiratory rate 18 /min Ruth Fitzpatrickverena [employer] Work Phone: [facility] 04-13-2023 08:48-0500 SaO2% (BldA) [Mass fraction] 99 % Ruth Fitzpatrickverena [employer] Work Phone: [facility] 04-13-2023 08:48-0500 Systolic blood pressure 122 mm[Hg] Ruth Fitzpatrickverena [employer] Work Phone: [facility] 03-08-2023 16:15-0500 Body height 158.75 cm Pao Harrison Other [facility] 03-08-2023 16:15-0500 Body mass index (BMI) [Ratio] 23.83 kg/m2 Pao Harrison Other [employer] [facility] [employer] Other 03-08-2023 16:15-0500 Body temperature 98.3 [degF] Pao Harrison Other [employer] Other 03-08-2023 16:15-0500 Body weight 60.06 kg Pao Harrison Other [employer] Other 03-08-2023 16:15-0500 Body weight 60.05 kg [facility] 03-08-2023 16:15-0500 Respiratory rate 18 /min Pao Harrison Other [employer] Other 03-08-2023 16:15-0500 SaO2% (BldA) [Mass fraction] 96 % Pao Harrison Other [employer] Other 12-02-2022 14:45-0400 Body height 158.75 cm Reyna Danielle Other [employer] Other 12-02-2022 14:45-0400 Body mass index (BMI) [Ratio] 23.9 kg/m2 Reyna Danielle Other [employer] Other 12-02-2022 14:45-0400 Body temperature 98.1 [degF] Reyna Danielle Other [employer] Other 12-02-2022 14:45-0400 Body weight 60.24 kg Reyna Danielle Other [employer] Other 12-02-2022 14:45-0400 Diastolic blood pressure 88 mm[Hg] Reynathania Santos Other [employer] Other 12-02-2022 14:45-0400 Respiratory rate 18 /min Reyna Danielle Other [employer] Other 12-02-2022 14:45-0400 SaO2% (BldA) [Mass fraction] 100 % Reyna Danielle Other [employer] Other 12-02-2022 14:45-0400 Systolic blood pressure 152 mm[Hg] Reyna Santos Other [employer] Other 07-29-2022 16:15-0400 Body height 158.75 cm Nuzhat Liz Other [employer] Other 07-29-2022 16:15-0400 Body mass index (BMI) [Ratio] 23.22 kg/m2 Nuzhat Liz Other [employer] Other 07-29-2022 16:15-0400 Body temperature 97.7 [degF] Nuzhat Liz Other [employer] Other 07-29-2022 16:15-0400 Body weight 58.51 kg Nuzhat Liz Other [employer] Other 07-29-2022 16:15-0400 Respiratory rate 18 /min Nuzhat Liz Other [employer] Other 07-29-2022 16:15-0400 SaO2% (BldA) [Mass fraction] 92 % Nuzhat Liz Other [employer] Other Encounters Encounter Date Encounter Type Care Provider Facility Start: 10-04-2024 End: 10-04-2024 Bamboo flowsheet Ruth Yandel [employer] Work Phone: [facility] Start: 10-04-2024 End: 10-04-2024 Bamboo flowsheet Ruth Conniez [employer] Work Phone: [facility] Start: 10-04-2024 End: 10-04-2024 Office outpatient visit 25 minutes Ruth Yandel [employer] Work Phone: [facility] Comment on above: Anxiety (Primary Dx) ; PVD (peripheral vascular disease); Gastroesophageal reflux disease, unspecified whether esophagitis present; Hypothyroidism, unspecified type ; Tobacco user; Mixed hyperlipidemia ; Encounter for screening mammogram for malignant neoplasm of breast Start: 10-04-2024 End: 10-04-2024 ambulatory RUTH AICHHOLZ Not Available Start: 07-11-2024 End: 07-12-2024 Refill Ruth Aichralphz [employer] Work Phone: [facility] Comment on above: Anxiety Start: 06-19-2024 End: 06-19-2024 Office outpatient visit 10 minutes Ruth Yandel [employer] Work Phone: [facility] Comment on above: Viral upper respirat ory tract infection (Primary Dx); Tobacco user Start: 06-19-2024 End: 06-19-2024 ambulatory RUTH AICHHOLZ Not Available Start: 06-19-2024 End: 06-19-2024 Bamboo flowsheet Ruth Aichholz [employer] Work Phone: [facility] Start: 06-19-2024 End: 06-19-2024 Bamboo flowsheet Ruth Aichholz [employer] Work Phone: [facility] Start: 06-06-2024 End: 06-06-2024 Refill Ruth Aichholz [employer] Work Phone: [facility] Comment on above: PVD (peripheral vasc ular disease) (CMS/HCC) Start: 05-02-2024 End: 05-02-[address] [facility] Start: 04-28-2024 End: 04-30-2024 Refill Ruth Amariholz [employer] Work Phone: [facility] Comment on above: Hypothyroidism, unsp ecified type (CMS/HCC) Start: 04-05-2024 End: 04-05-2024 Bamboo flowsheet Ruth Aichholz [employer] Work Phone: [facility] Start: 04-05-2024 End: 04-05-2024 Bamboo flowsheet Ruth Aichholz [employer] Work Phone: [facility] Start: 04-05-2024 End: 04-05-2024 Office outpatient visit 25 minutes Ruth Conniez [employer] Work Phone: [facility] Comment on above: Anxiety (Primary Dx) ; PVD (peripheral vascular disease) (CMS/HCC); Gastroesophageal reflux disease, unspecified whether esophagitis present; Hypothyroidism, unspecified type (CMS/HCC); Benzodiazepine use agreement exists; Tobacco user; Flatulence symptom Start: 04-05-2024 End: 04-05-2024 ambulatory RUTH AICHHOLZ Not Available Start: 01-04-2024 End: 01-04-2024 Bamboo flowsheet Ruth Fitzpatrickverena CORNICE MAKER Work Phone: [facility] Start: 01-04-2024 End: 01-04-2024 Bamboo flowsheet Ruth Fitzpatrickverena [employer] Work Phone: [facility] Start: 01-04-2024 End: 01-04-2024 ambulatory RUTH HUMPHRIES Not Available Start: 01-04-2024 End: 01-04-2024 Office outpatient visit 25 minutes Ruth Fitzpatrickverena [employer]ICE [employer] Work Phone: [facility] Comment on above: Anxiety (Primary Dx) ; BMI 24.0-24.9, adult; Benzodiazepine use agreement exists; 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); Tobacco user; Hypothyroidism, unspecified type ([facility]/HCC) Start: 11-16-2023 End: 11-16-2023 Patient encounter procedure Ruth Fitzpatrickralphjony Work Phone: [facility] [address] Work Phone: Start: 11-16-2023 End: 11-16-2023 ambulatory Ruth Sanders Kerricontrerasralphjony Work Phone: [facility] Work Phone: Start: 11-09-2023 End: 11-09-2023 Bamboo flowsheet Ruth Fitzpatrickverena [employer] Work Phone: [facility] Start: 11-09-2023 End: 11-09-2023 Bamboo flowsheet Ruth Fitzpatrickverena [employer] Work Phone: [facility] Start: 11-09-2023 End: 11-09-2023 Patient encounter procedure Ruth Fitzpatrickverena [employer]ICE [employer]ER Work Phone: [facility] Comment on above: Encounter for subseq uent annual wellness visit (AWV) in Medicare patient (Primary Dx); PVD (peripheral vascular disease) (CMS/HCC); Hypothyroidism, unspecified type (CMS/HCC); Anxiety; Tobacco user; ERICA positive; Lymphocytopenia Start: 11-09-2023 End: 11-09-2023 ambulatory RUTH FITZPATRICKRALPHJony Not Available Start: 11-02-2023 End: 11-02-2023 ambulatory Ruth Humphries Work Phone: [facility] Work Phone: Start: 11-02-2023 End: 11-02-2023 Patient encounter procedure Ruth Fitzpatrickralphjony Work Phone: [facility] Work Phone: Start: 11-02-2023 Registered Recurring Ruth Fitzpatrick verena Work Phone: [facility] Work Phone: Start: 11-02-2023 ambulatory Ruth Sanders Kerricontrerasralphjony Facilit y:[facility] Start: 11-01-2023 End: 11-01-2023 Patient encounter procedure Ruth Humphries Work Phone: [facility] [address] Work Phone: Start: 11-01-2023 End: 11-01-2023 ambulatory Ruth Humphries Work Phone: [facility] Work Phone: Start: 11-01-2023 End: 11-01-2023 ambulatory HONG LOYA [facility] Comment on above: UTI symptoms (Primar y Dx) Start: 10-18-2023 End: 10-18-2023 Refill Ruth Yandel CORNICE MAKER Work Phone: [facility] Comment on above: Dysfunction of both eustachian tubes Start: 10-13-2023 Registered Recurring Ruth albarado Work Phone[facility] Work Phone: Start: 10-12-2023 End: 10-12-2023 ambulatory Ruth Humphries Work Phone: [facility] Work Phone: Start: 10-12-2023 End: 10-12-2023 Patient encounter procedure Ruth Humphries Work Phone: [facility] Work Phone: Start: 09-19-2023 End: 09-19-2023 ambulatory Ruth Sanders Kerricontrerasverena [facility] Work Phone: Start: 09-19-2023 End: 09-19-2023 Departed Referred Ruth Kerricontrerasverena Work Phone: [facility] Start: 05-26-2023 End: 05-26-2023 ambulatory [facility] Work Phone: Start: 05-26-2023 End: 05-26-2023 Patient encounter procedure [facility] Work Phone: Start: 05-05-2023 End: 05-05-2023 ambulatory Isabelle Hartman Facility:[facility] Start: 04-13-2023 Bamboo flowsheet Ruth Humphries [employer]NICE [employer]KER Work Phone: [facility] Start: 04-13-2023 Bamboo flowsheet Ruth Humphries CORNICE MAKER Work Phone: [facility] Start: 04-13-2023 End: 04-13-2023 Office outpatient visit 25 minutes Ruth Humphries CORNICE MAKER Work Phone: [facility] Comment on above: Dysfunction of both eustachian tubes (Primary Dx); PVD (peripheral vascular disease) (CMS/HCC); Anxiety; Mixed hyperlipidemia (CMS/HCC) Start: 03-08-2023 End: 03-08-2023 ambulatory Pao Terry Other [employer] Other Start: 03-08-2023 Office outpatient vi sit 15 minutes Paomoses Hassanb [facility] Start: 03-08-2023 End: 03-08-2023 Patient encounter procedure [facility] Work Phone: Start: 12-02-2022 End: 12-02-2022 ambulatory Reyna Santos Other [employer] Other Start: 12-02-2022 Office outpatient vi sit 15 minutes Reyna Santos [facility] Start: 07-29-2022 End: 07-29-2022 ambulatory Nuzhat Liz Other [employer] Other Start: 07-29-2022 Office outpatient vi sit 15 minutes Nuzhat Liz [facility] Start: 07-23-2022 End: 07-23-2022 ambulatory BENEDICT DIAB . Facility:[facility] Start: 12-08-2021 End: 12-09-2021 ambulatory LUCRETIA BRADLEY [facility] Start: 12-08-2021 End: 12-08-2021 Subsequent hospital visit by physician Sr Carlitos MIRANDA Work Phone: [facility] Comment on above: Dysuria Start: 08-21-2021 End: 08-21-2021 ambulatory ULICES CLARKE Facility:[facility] Start: 08-20-2021 End: 08-20-2021 ambulatory ULICES CLARKE Facility:[facility] Start: 05-15-2020 End: 05-15-2020 Subsequent hospital visit by physician Sr Urbina [facility] Comment on above: Frequency of urinati on; Vaginal infection; STD exposure Start: 12-17-2019 End: 12-17-2019 [facility] Comment on above: Vaginal irritation Procedures Date Procedure Procedure Detail Performing Clinician Start: 11-01-2023 CT of lungs Ruth Aichh olz Work Phone: Start: 05-15-2020 Urinalysis microscop ic only Lucretia Bradley Work Phone: Start: 05-15-2020 Urnls dip stick/tabl et rgnt auto w/o microscopy Lucretia Bradley Work Phone: Plan of Treatment Date Care Activity Detail Author Start: 11-20-2024 End: 11-20-2024 Patient encounter procedure 11/20/2024 10:00 AM EDT Office Visit [facility] [address] [place] [address] Ruth Humphries, CONCEPCION [address] [place] [address] [facility] Start: 11-08-2024 Medicare Annual Well ness (AWV) Medicare Annual Wellness (AWV) [facility] Start: 10-04-2024 End: 10-04-2025 CBC W Auto Differential panel - Blood CBC and differential Lab Routine Gastroesophageal reflux disease, unspecified whether esophagitis present Hypothyroidism, unspecified type Expected: 10/04/2024 (Approximate), Expires: 10/04/2025 [facility] Work Phone: Comment on above: Expected: 10/04/2024 (Approximate), Expires: 10/04/2025 Start: 10-04-2024 End: 10-04-2025 Comprehensive metabolic 2000 panel - Serum or Plasma Comprehensive metabolic panel Lab Routine PVD (peripheral vascular disease) Gastroesophageal reflux disease, unspecified whether esophagitis present Anxiety Expected: 10/04/2024 (Approximate), Expires: 10/04/2025 [facility] Comment on above: Expected: 10/04/2024 (Approximate), Expires: 10/04/2025 Start: 10-04-2024 End: 10-04-2025 Lipid 1996 panel - Serum or Plasma Lipid panel Lab Routine PVD (peripheral vascular disease) Mixed hyperlipidemia Expected: 10/04/2024 (Approximate), Expires: 10/04/2025 [facility] Comment on above: Expected: 10/04/2024 (Approximate), Expires: 10/04/2025 Start: 10-04-2024 End: 12-04-2025 MG Breast - bilateral Screening Bilateral screening mammogram Imaging Routine Encounter for screening mammogram for malignant neoplasm of breast Expected: 10/04/2024 (Approximate), Expires: 12/04/2025 [facility] Comment on above: Expected: 10/04/2024 (Approximate), Expires: 12/04/2025 Start: 10-04-2024 End: 10-04-2025 Thyrotropin [Units/volume] in Serum or Plasma TSH Lab Routine Hypothyroidism, unspecified type Expected: 10/04/2024 (Approximate), Expires: 10/04/2025 [facility] Comment on above: Expected: 10/04/2024 (Approximate), Expires: 10/04/2025 Start: 10-04-2024 End: 10-04-2025 Thyroxine (T4) free [Mass/volume] in Serum or Plasma T4, free Lab Routine Hypothyroidism, unspecified type Expected: 10/04/2024 (Approximate), Expires: 10/04/2025 [facility] Comment on above: Expected: 10/04/2024 (Approximate), Expires: 10/04/2025 Start: 10-04-2024 End: 10-04-2025 Urinalysis complete panel - Urine Urinalysis with reflex microscopic (clean catch) Lab Routine Tobacco user Expected: 10/04/2024 (Approximate), Expires: 10/04/2025 [facility] Comment on above: Expected: 10/04/2024 (Approximate), Expires: 10/04/2025 Start: 10-04-2024 End: 10-04-2024 Patient encounter procedure 10/04/2024 9:20 AM EDT Office Visit [facility] [address] [place] [address] Ruth Humphries NP [address] [place] [address] PVD (peripheral vascular disease) (Primary Dx); Gastroesophageal reflux disease, unspecified whether esophagitis present; Hypothyroidism, unspecified type ; Tobacco user; Anxiety; Mixed hyperlipidemia [facility] Comment on above: PVD (peripheral vasc ular disease) (Primary Dx); Gastroesophageal reflux disease, unspecified whether esophagitis present; Hypothyroidism, unspecified type ; Tobacco user; Anxiety; Mixed hyperlipidemia Start: 07-11-2024 End: 07-11-2024 Patient encounter procedure 07/11/2024 9:20 AM EDT Office Visit [facility] [address] [place] [address] Ruth Humphries, COCNE[employer]ION [address] [place] [phone] [facility] Start: 06-19-2024 End: 06-19-2024 Patient encounter procedure 06/19/2024 4:00 PM EDT Office Visit [facility] [address] [place] [address] Ruth Humphries, CONCE[employer] [address] [place] [phone] Arrived [facility] Comment on above: Arrived Start: 04-05-2024 End: 04-05-2024 Patient encounter procedure 04/05/2024 9:40 AM EST Office Visit [facility] [address] [place] [address] Ruth Humphries, CONCEPCINO [address] [place] [phone] Anxiety (Primary Dx); PVD (peripheral vascular disease) (CMS/HCC); Gastroesophageal reflux disease, unspecified whether esophagitis present; Hypothyroidism, unspecified type (CMS/HCC); Benzodiazepine use agreement exists; Tobacco user; Screening for lung cancer [facility] Comment on above: Anxiety (Primary Dx) ; PVD (peripheral vascular disease) (CMS/HCC); Gastroesophageal reflux disease, unspecified whether esophagitis present; Hypothyroidism, unspecified type (CMS/HCC); Benzodiazepine use agreement exists; Tobacco user; Screening for lung cancer Start: 01-05-2024 End: 01-05-2024 Patient encounter procedure 01/05/2024 9:20 AM EST Office Visit [facility] [address] [place] [address] Ruth Humphries, CORNICE MAKER [address] [place] [phone] [facility] Start: 12-19-2023 End: 12-19-2023 Patient encounter procedure 12/19/2023 9:40 AM EDT Office Visit [facility] [address] [place] [address] Ruth Humphries, [employer]CEPC[employer] [address] [place] [phone] [facility] Start: 11-16-2023 Hemolytic complement CH50 level [facility] Start: 11-16-2023 [facility] Start: 11-09-2023 End: 11-09-2023 Patient encounter procedure 11/09/2023 10:00 AM EDT [facility] [address] [place] [address] Ruth Humphries, CORNICE MAKER [address] [place] [phone] Arrived [facility] Comment on above: Arrived Start: 11-02-2023 Patient referral [facility] Work Phone: Start: 11-01-2023 End: 10-31-2024 Bacteria identified in Urine by Culture Urine culture (clean catch) Microbiology Routine UTI symptoms Expected: 11/01/2023 (Approximate), Expires: 10/31/2024 [facility] Comment on above: Expected: 11/01/2023 (Approximate), Expires: 10/31/2024 Start: 11-01-2023 End: 10-31-2024 Urinalysis complete panel - Urine Urinalysis with reflex microscopic (clean catch) Lab Routine UTI symptoms Expected: 11/01/2023 (Approximate), Expires: 10/31/2024 [facility] Work Phone: Comment on above: Expected: 11/01/2023 (Approximate), Expires: 10/31/2024 Start: 10-26-2023 Medicare Annual Well ness (AWV) Medicare Annual Wellness (AWV) [facility] Start: 07-12-2023 End: 07-12-2023 Patient encounter procedure 07/12/2023 9:20 AM EDT Office Visit [facility] [address] [place] [phone] Ruth Humphries, CORNICE MAKER [address] [place] [phone] [facility] Start: 04-26-2023 End: 04-26-2023 Patient encounter procedure 04/26/2023 9:20 AM EST Office Visit [facility] [address] [place] [address] Ruth Humphries, CORNICE MAKER [address] [place] [phone] [facility] Start: 09-28-2021 Influenza vaccination Flu vaccine (# 1) [facility] Start: 09-04-2021 DTaP/Tdap/Td vaccine (2 - Td or Tdap) DTaP/Tdap/Td vaccine (2 - Td or Tdap) [facility] Start: 09-04-2021 DTaP/Tdap/Td vaccine (2 - Td) DTaP/Tdap/Td vaccine (2 - Td) [facility] [place] Start: 10-30-2019 Influenza vaccination Flu vaccine (# 1) [place], [place] Start: 08-20-2018 Annual Wellness Visi t (AWV) Annual Wellness Visit (AWV) [facility] Start: 06-29-2016 Medicare Annual Well ness (AWV) Medicare Annual Wellness (AWV) [facility] Start: 05-07-2011 Pneumococcal 65+ yea rs Vaccine (1 of 1 - PPSV23) Pneumococcal 65+ years Vaccine (1 of 1 - PPSV23) [place], [place] Start: 2001 Screening for osteoporosis DEXA (modify frequency per FRAX score) [facility] Start: 1996 Screening for malign ant neoplasm of breast Breast cancer screen [place], [place] Start: 1996 Screening for malign ant neoplasm of colon Colon cancer screen colonoscopy [place], [place] Start: 1996 Shingles Vaccine (1 of 2) Shingles Vaccine (1 of 2) [facility] Start: 05-07-1991 Screening for malign ant neoplasm of colon [facility] Start: 1986 Lipid panel [facility] Start: 1962 COVID-19 Vaccine (1) COVID-19 Vaccin e (1) [facility] [employer] Phone: Start: 1958 Depression Screen Depression Screen [facility] Start: 1952 Pneumococcal 65+ yea rs Vaccine (1 - PCV) Pneumococcal 65+ years Vaccine (1 - PCV) [facility] Start: 1946 COVID-19 Vaccine (#1) COVID-19 Vacci ne (#1) [facility] Start: 1946 TSH Qn TSH testing [place], [place] Angiotensin converti ng enzyme [Enzymatic activity/volume] in Serum or Plasma [facility] End: 05-15-2020 C.trachomatis N.gonorrhoeae DNA C.trachomatis N.gonorrhoeae DNA Microbiology Routine Once for 1 Occurrences starting 05/15/2020 until 05/15/2020 [email or web address] Phone: Comment on above: Once for 1 Occurrenc es starting 05/15/2020 until 05/15/2020 C.trachomatis N.gonorrhoeae DNA C.trachomatis N.gonorrhoeae DNA Microbiology Routine 05/15/2020 11:57 AM EDT [facility] [employer] Phone: Complement C3 [Mass/volume] in Serum or Plasma [facility] Complement C4 [Mass/volume] in Serum or Plasma [facility] Comprehensive metabo lic 2000 panel - Serum or Plasma [facility] Comprehensive metabo lic 1999 panel - Serum or Plasma [facility] [place] Unspecified body region [facility] End: 12-17-2019 Culture, Genital Culture, Genital Microbiology Routine Vaginal irritation 1 Occurrences starting 12/17/2019 until 12/17/2019 [place] Comment on above: 1 Occurrences starti ng 12/17/2019 until 12/17/2019 Culture, Genital [facility] [place] End: 05-15-2020 Culture, Genital Culture, Genital Microbiology Routine Vaginal infection STD exposure 1 Occurrences starting 05/15/2020 until 05/15/2020 [employer] Phone: Comment on above: 1 Occurrences starti ng 05/15/2020 until 05/15/2020 End: 05-15-2020 Culture, Urine Culture, Urine Microbiology Routine Once for 1 Occurrences starting 05/15/2020 until 05/15/2020 [employer] Phone: Comment on above: Once for 1 Occurrenc es starting 05/15/2020 until 05/15/2020 Culture, Urine Culture, Urine Microbiology Routine 05/15/2020 12:54 PM EDT [employer] Phone: End: 12-08-2021 Culture, Urine [facility] Phone: Comment on above: 1 Occurrences starti ng 12/08/2021 until 12/08/2021 Homogenous nuclear A b pattern [Titer] in Serum [facility] Nuclear Ab [Titer] i n [facility] Parietal cell Ab [Units/volume] in [facility] Patient referral [facility] Work Phone: Rheumatoid factor [Units/volume] in Serum or Plasma [facility] Immunizations Immunization Date Immunization Notes Care Provider Niurka mcallister 09-05-2011 tetanus toxoid, redu latisha diphtheria toxoid, and acellular pertussis vaccine, adsorbed Sr House [place], [place] Payers Date Payer Category Payer Self-pay [id number] 2014 Unknown [id number] 2014 Unknown 2011 Medicare [id number] 1999 Private Health Insurance [facility] [id number] 1999 Unknown [id number] 1959 Medicare [id number]. [id number] 1959 Unknown [id number] 1946 Unknown [id number] 2.16.840.1.446305.3.579. 2.174 1946 Unknown [id number] 2.16.840.1.942818.3.579. 2.593 1946 Unknown [id number] 2.16.840.1.228920.3.579. 2.593 1946 Unknown [id number] 2.16.840.1.699334.3.579. 2.593 1946 Unknown [id number] 2.16.840.1.589563.3.579. 2.173 1946 Unknown [id number] 2.16.840.1.052634.3.579. 2.196 1946 Unknown [id number] 2.16.840.1.408994.3.579. 2.196 1946 Unknown [id number] 2.16.840.1.977822.3.579. 2.1259 1946 Unknown [id number] 2.16.840.1.665652.3.579. 2.1259 1946 Unknown [id number] 2.16.840.1.309742.3.579. 2.1259 1946 Unknown [id number] 2.16.840.1.455488.3.579. 2.1259 1946 Unknown [id number] 2.16.840.1.513753.3.579. 2.1259 Unknown [id number] 2.16.840.1.310475.3.579. 2.531 Unknown [id number] 2.16.840.1.197755.3.579. 2.531 Unknown [id number] 2.16.840.1.260877.3.579. 2.531 Unknown [id number] 2.16.840.1.086567.3.579. 2.531 Social History Date Type Detail Facility Start: 12-17-2019 End: 01-24-2023 Tobacco smoking status NHIS Current every day smoker [facility] [employer] Start: 12-17-2019 End: 12-08-2021 Tobacco use and exposure [facility] used [facility] [place] Start: 12-17-2019 End: 12-08-2021 Alcohol intake Current drinker of alcohol (finding) [place], [place] Start: 1945 Sex Assigned At Not on file [place] Start: 12-08-2021 End: 01-24-2023 Alcohol intake [facility] Start: 01-24-2023 End: 11-09-2023 Sex Assigned At [facility] History of tobacco use Cigarette Smoker [facility] Start: 01-24-2023 Tobacco use and exposure User of smokeless tobacco [facility] Start: 04-13-2023 End: 10-04-2024 Alcohol intake Ex-drinker (finding) [facility] Within the last year , have you been afraid of your partner or ex-partner? No [facility] Do you belong to any clubs or organizations such as voodoo groups, unions, fraternal or athletic groups, or [...] Not at all [facility] (I/We) worried whestephanie er (my/our) food would run out before (I/we) got money to buy more. Never true [facility] Start: 02-27-2023 Alcohol Comment 1-2 drinks monthly or less, caffeine more than 4 cups per day [facility] Start: 09-04-2019 Tobacco smoking status NHIS Smoker (finding) [facility] Start: 1945 Sex Assigned At Female [facility] Start: 10-17-2023 Gender identity Identifies as female gender (finding) [facility] Start: 10-17-2023 Sexual orientation Heterosexual (finding) [facility] Clinical Notes 07-29-2022 to 10-04-2024 LEATHA MATT - 10/04/2024 9:20 AM Tico Humphries NP - 10/04/2024 9:20 AM Tico Humphries NP - 10/04/2024 6:15 AM Tico Humphries NP - 10/04/2024 6:14 AM EDTPatient Instructions Note Date & Type Note Facility 10-04-2024 History of Presen t illness Narrative Pt would like [facility]bast[facility] Images from the original note were not included. Daphne Fermin is a 79 y.o. female presents with chief complaint of Anxiety HPI: 3 month fu: Anxiety stable on current meds, no SI/HI/hallucinations Low back pain: daily, achy worse by end of day, no NT or weakness LE, no cauda, asking for stretching exercises SUBJECTIVE: MEDICATIONS: Current Outpatient Medications Medication Instructions acetaminophen (Tylenol) 325 MG tablet Take by mouth. clopidogrel (PLAVIX) 75 mg, Daily famotidine (Pepcid) 10 MG tablet Take by mouth. levothyroxine (SYNTHROID, LEVOXYL) 75 mcg, Oral, Daily before breakfast LORazepam (ATIVAN) 1 mg, Oral, Every 8 hours PRN, Take by mouth. ALLERGIES: Allergies Allergen Reactions Moxifloxacin Anaphylaxis Other Reaction(s): Swelling of Lip/Tongue/Throat Penicillin G Aspirin Bactrim [Sulfamethoxazole-Trimethoprim] REVIEW OF SYMPTOMS: Review of Systems Constitutional: Negative for appetite change, chills and fever. HENT: Negative for congestion, ear pain and sore throat. Eyes: Negative for pain, discharge, redness and visual disturbance. Respiratory: Negative for cough, shortness of breath and wheezing. Cardiovascular: Negative for chest pain, palpitations and leg swelling. Gastrointestinal: Negative for abdominal pain, blood in stool, constipation, diarrhea, nausea and vomiting. Genitourinary: Negative for difficulty urinating, dysuria and frequency. Musculoskeletal: Positive for back pain. Negative for arthralgias, joint swelling and myalgias. Skin: Negative for [...] 04/13/2023 GERD (gastroesophageal reflux disease) Sussy's thyroiditis SNHL (sensorineural hearing loss) Thyroid nodule Tobacco user 03/10/2023 Visual impairment Past Surgical History: Procedure Laterality Date APPENDECTOMY HYSTERECTOMY OTHER SURGICAL HISTORY r/o bowel adhesions, BMT x 4 family history includes Diabetes in her mother and sister; Heart disease in her brother and father; Hypertension in her sister. OBJECTIVE: Visit Vitals BP 118/82 (BP Location: Left arm, Patient Position: Sitting, BP Cuff Size: Adult long) Pulse 73 Temp 98.1 F (Temporal) Resp 18 Wt 136 lb 3.2 oz LMP (LMP Unknown) SpO2 97% BMI 24.51 kg/m OB Status Postmenopausal Smoking Status Every Day BSA 1.65 m Physical Exam Vitals and nursing note reviewed. Constitutional: General: She is not in acute distress. Appearance: Normal appearance. HENT: Head: Normocephalic and atraumatic. Right Ear: External ear normal. Left Ear: External ear normal. Nose: Nose normal. Mouth/Throat: Mouth: Mucous membranes are moist. Eyes: Extraocular Movements: Extraocular movements intact. Conjunctiva/sclera: Conjunctivae normal. Neck: Vascular: No carotid bruit. Cardiovascular: Rate and Rhythm: Normal rate and regular rhythm. Pulses: Normal pulses. Heart sounds: Normal heart sounds. Pulmonary: Effort: Pulmonary effort is normal. Breath sounds: Normal breath sounds. No wheezing or rhonchi. Abdominal: General: Bowel sounds are normal. There is no distension. Palpations: Abdomen is soft. There is no mass. Tenderness: There is no abdominal tenderness. Musculoskeletal: General: Normal range of motion. Cervical back: Normal range of motion and neck supple. Right lower leg: No edema. Left lower leg: No edema. Comments: MMT 5/5 bilat LE Dtr's 2+ bilat achilles, no lumbar tenderness Lymphadenopathy: Cervical: No cervical adenopathy. Skin: General: Skin is warm and dry. [...] file. Problem List Items Addressed This Visit Hypothyroid Current med: levothyroxine Check labs yearly, with dose changes, as well as when sxs warrent Relevant Orders CBC and differential TSH T4, free PVD (peripheral vascular disease) - Primary Take plavix daily Cont with vascular doctor Relevant Orders Comprehensive metabolic panel Lipid panel Anxiety Cont current meds: xanax OARRS reviewed Recommend during times of increased anxiety to go to quiet place, relaxation techniques such as deep breathing, mediatation Relevant Orders Comprehensive metabolic panel Tobacco user The patient has been advised of the risks of continued smoking: stroke, NM, all forms of cancer, lung disease, and . Options for quitting smoking include: cold turkey, hypnosis, acupuncture, nicotine replacement meds (gum, lozenges, and patches), Buproprion, and Varenicline. At this time pt is encouraged to evaluate their goals for wanting to quit smoking, and reach out to provider when ready to start this process Relevant Orders Urinalysis with reflex microscopic (clean catch) GERD (gastroesophageal reflux disease) Recommendations: freq small meals, nothing to eat or drink at least 2 hours prior to bed, limit caffeine, alcohol, as well as spicy foods Meds to limit or avoid if possible: NSAIDS Elevate HOB if possible Current medication: famotidine Relevant Orders CBC and differential Comprehensive metabolic panel Mixed hyperlipidemia Check labs refuses statin use, and does not want to try zetia at this time Relevant Orders Lipid panel Encounter for screening mammogram for malignant neoplasm of breast Relevant Orders Bilateral screening mammogram Associated Problem(s): Anxiety Cont current meds: xanax OARRS reviewed Recommend during times of increased anxiety to go to quiet place, relaxation techniques such as deep breathing, mediatation Associated Problem(s): Mixed hyperlipidemia Check labs refuses statin use, and does not want to try zetia at this time Associated Problem(s): Screening for lung cancer Patient meets requirements for low dose CT scan for lung cancer screening: age 55-80, patient is a current smoker or has quit in the last 15 years. Smoking history is > or equal to 30 pack-year. If needed the patient is able or willing to receive treatment. The patient is not currently exhibiting any s/s of lung cancer. We have discussed the benefits as well as harms of screening, follow up testing if needed, false positive rates. We have also discussed that this type of CT scan has less radiation exposure than a traditional lung CT scan. We have also discussed that it is important to follow with annual screening for this. The patient has also been counseled on the importance of smoking cessation. Associated Problem(s): Tobacco user The patient has been advised of the risks of continued smoking: stroke, NM, all forms of cancer, lung disease, and . Options for quitting smoking include: cold turkey, hypnosis, acupuncture, nicotine replacement meds (gum, lozenges, and patches), Buproprion, and Varenicline. At this time pt is encouraged to evaluate their goals for wanting to quit smoking, and reach out to provider when ready to start this process Associated Problem(s): Hypothyroid Current med: levothyroxine Check labs yearly, with dose changes, as well as when sxs warrent Associated Problem(s): GERD (gastroesophageal reflux disease) Recommendations: freq small meals, nothing to eat or drink at least 2 hours prior to bed, limit caffeine, alcohol, as well as spicy foods Meds to limit or avoid if possible: NSAIDS Elevate HOB if possible Current medication: famotidine Associated Problem(s): PVD (peripheral vascular disease) Take plavix daily Cont with vascular doctor documented in this encounter [facility] 10-04-2024 Instructions Ruth Humphries NP - 10/04/2024 9:20 AM EDT Labs fasting Mammogram: [facility] documented in this encounter [facility] 06-19-2024 History of Presen t illness Narrative Associated Problem(s): Viral upper respiratory tract infection This appears to be more viral and is resolving At this point OTC treatment is reasonable If worsening in sxs contact office Associated Problem(s): Tobacco user The patient has been advised of the risks of continued smoking: stroke, NM, all forms of cancer, lung disease, and . Options for quitting smoking include: cold turkey, hypnosis, acupuncture, nicotine replacement meds (gum, lozenges, and patches), Buproprion, and Varenicline. At this time pt is encouraged to evaluate their goals for wanting to quit smoking, and reach out to provider when ready to start this process Last pt had sore throat, that night she had runny nose and had a cough. Pt states she slept most of Tuesday, pt states she did not have a temp but her skin hurt. Tuesday she was drenched in sweat, pt still have a cough through the weekend, she blew her nose today and had green mucus, she still has a slight cough not like it did, and consistent runny nose. Headaches-no Sinus pressure- no Sore throat-yes only 1 night Runny nose- yes Stuffy nose-no Itchy/watery eyes- yes at times Ear pain/ pressure-no Fever-no Body aches-yes Cold chills-yes Sweats-yes Nausea-no Vomiting-no Diarrhea- no Images from the original note were not included. Daphne Fermin is a 79 y.o. female presents with chief complaint of Sore Throat HPI: LEATHA MATT [employer] 4:23 PM Last pt had sore throat, that night she had runny nose and had a cough. Pt states she slept most of Tuesday, pt states she did not have a temp but her skin hurt. Tuesday she was drenched in sweat, pt still have a cough through the weekend, she blew her nose today and had green mucus, she still has a slight cough not like it did, and consistent runny nose. Headaches-no Sinus pressure- no Sore throat-yes only 1 night Runny nose- yes Stuffy nose-no Itchy/watery eyes- yes at times Ear pain/ pressure-no Fever-no Body aches-yes Cold chills-yes Sweats-yes Nausea-no Vomiting-no Diarrhea- no Sxs appear to be resolving SUBJECTIVE: MEDICATIONS: Current Outpatient Medications Medication Instructions acetaminophen (Tylenol) 325 MG tablet Take by mouth. clopidogrel (PLAVIX) 75 mg, Oral, Daily clopidogrel (PLAVIX) 75 mg, Oral, Daily famotidine (Pepcid) 10 MG tablet Take by mouth. levothyroxine (SYNTHROID, LEVOXYL) 75 mcg, Oral, Daily before breakfast LORazepam (ATIVAN) 1 mg, Oral, Every 8 hours PRN, Take by mouth. ALLERGIES: Allergies Allergen Reactions Moxifloxacin Anaphylaxis Other Reaction(s): Swelling of Lip/Tongue/Throat Penicillin G Aspirin Bactrim [Sulfamethoxazole-Trimethoprim] REVIEW OF SYMPTOMS: Review of Systems Constitutional: Negative for appetite change, chills and fever. HENT: Positive for rhinorrhea. Negative for congestion, ear pain and sore throat. Eyes: Negative for pain, discharge, redness and visual disturbance. Respiratory: Positive for cough. Negative for shortness of breath and wheezing. Cardiovascular: Negative for chest pain, palpitations and leg swelling. Gastrointestinal: Negative for abdominal pain, blood in stool, constipation, diarrhea, nausea and vomiting. Genitourinary: Negative for difficulty urinating, dysuria and frequency. Musculoskeletal: Negative for arthralgias, back pain, joint swelling and myalgias. Skin: Negative for rash and wound. Neurological: Negative for dizziness, tremors, seizures, syncope and headaches. Psychiatric/Behavioral: Negative for behavioral problems, self-injury and suicidal ideas. The patient is not nervous/anxious. Hematological: Does not bruise/bleed easily. Endocrine: [...] in her sister. OBJECTIVE: Visit Vitals BP 108/70 (BP Location: Left arm, Patient Position: Sitting, BP Cuff Size: Adult long) Pulse 74 Temp 98.8 F (Temporal) Resp 18 Wt 135 lb 9.6 oz LMP (LMP Unknown) SpO2 98% BMI 24.41 kg/m OB Status Postmenopausal Smoking Status Every Day BSA 1.65 m Physical Exam Vitals and nursing note reviewed. Constitutional: General: She is not in acute distress. Appearance: Normal appearance. HENT: Head: Normocephalic and atraumatic. Right Ear: Tympanic membrane, ear canal and external ear normal. Left Ear: Tympanic membrane, ear canal and external ear normal. Nose: Rhinorrhea present. No congestion. Mouth/Throat: Mouth: Mucous membranes are moist. Pharynx: No oropharyngeal exudate or posterior oropharyngeal erythema. Eyes: Extraocular Movements: Extraocular movements intact. Conjunctiva/sclera: Conjunctivae normal. Cardiovascular: Rate and Rhythm: Normal rate and regular rhythm. Pulses: Normal pulses. Heart sounds: Normal heart sounds. No murmur heard. Pulmonary: Effort: Pulmonary effort is normal. Breath sounds: Normal breath sounds. No wheezing or rhonchi. Abdominal: General: Bowel sounds are normal. There is no distension. Palpations: Abdomen is soft. There is no mass. Tenderness: There is no abdominal tenderness. Musculoskeletal: General: Normal range of motion. Cervical back: Normal range of motion and neck supple. Right lower leg: No edema. Left lower leg: No edema. Lymphadenopathy: Cervical: No cervical adenopathy. Skin: General: Skin is warm and dry. [...] file. Problem List Items Addressed This Visit Tobacco user - Primary The patient has been advised of the risks of continued smoking: stroke, NM, all forms of cancer, lung disease, and . Options for quitting smoking include: cold turkey, hypnosis, acupuncture, nicotine replacement meds (gum, lozenges, and patches), Buproprion, and Varenicline. At this time pt is encouraged to evaluate their goals for wanting to quit smoking, and reach out to provider when ready to start this process Viral upper respiratory tract infection This appears to be more viral and is resolving At this point OTC treatment is reasonable If worsening in sxs contact office documented in this encounter [facility] 04-05-2024 History of Presen t illness Narrative Associated Problem(s): Flatulence symptom Avoid gas forming foods Drink plenty of water Freq walking If any red flags contact office Pt states her itch is back And would like to discuss gas and having gas pressure in the abd. Images from the original note were not included. Daphne Fermin is a 78 y.o. female presents with chief complaint of Anxiety HPI: Abd: gas pain, intermittent, 3-4 times, cramping, no bowel habit changes, no blood in stool, no NV. No bloating Thinks may be related to eating out sandwich and fries. Eats green beans, not a lot of califlower/or broccoli Anxiety Presents for follow-up visit. Symptoms include excessive worry, muscle tension and nervous/anxious behavior. Patient reports no chest pain, decreased concentration, depressed mood, dizziness, insomnia, irritability, nausea, palpitations, panic, restlessness, shortness of breath or suicidal ideas. Symptoms occur most days. The severity of symptoms is mild. The quality of sleep is good. Nighttime awakenings: occasional. Compliance with medications is 76-100%. Thyroid Problem Presents for follow-up visit. Symptoms include anxiety. Patient reports no cold intolerance, constipation, depressed mood, diarrhea, fatigue, hair loss, hoarse voice, nail problem, palpitations, tremors, visual change, weight gain or weight loss. The symptoms have been stable. SUBJECTIVE: MEDICATIONS: Current Outpatient Medications Medication Instructions acetaminophen (Tylenol) 325 MG tablet Take by mouth. clopidogrel (PLAVIX) 75 mg, Oral, Daily famotidine (Pepcid) 10 MG tablet Take by mouth. levothyroxine (SYNTHROID, LEVOXYL) 75 mcg, Oral, Daily before breakfast LORazepam (ATIVAN) 1 mg, Oral, Every 8 hours PRN, Take by mouth. ALLERGIES: Allergies Allergen Reactions Moxifloxacin Anaphylaxis Other Reaction(s): Swelling of Lip/Tongue/Throat Penicillin G Aspirin Bactrim [Sulfamethoxazole-Trimethoprim] REVIEW OF SYMPTOMS: Review of Systems Constitutional: Negative for appetite change, chills, fatigue, fever, irritability, weight gain and weight loss. HENT: Negative for congestion, ear pain, hoarse voice and sore throat. Eyes: Negative for pain, discharge, redness and visual disturbance. Respiratory: Negative for cough, shortness of breath and wheezing. Cardiovascular: Negative for chest pain, palpitations and leg swelling. Gastrointestinal: Negative for abdominal pain, blood in stool, constipation, diarrhea, nausea and vomiting. Gas Genitourinary: Negative for difficulty urinating, dysuria and frequency. Musculoskeletal: Negative for arthralgias, back pain, joint swelling and myalgias. Skin: Negative for rash and wound. Neurological: Negative for dizziness, tremors, seizures, syncope and headaches. Psychiatric/Behavioral: Negative for behavioral problems, decreased concentration, self-injury and suicidal ideas. The patient is nervous/anxious. The patient does not have insomnia. Hematological: Does not bruise/bleed easily. Endocrine: Negative for cold intolerance, polydipsia, polyphagia and polyuria. Allergic/Immunologic: Negative for environmental allergies and food allergies. - PAST MEDICAL HISTORY Past Medical History: Diagnosis [...] in her sister. OBJECTIVE: Visit Vitals BP 128/90 (BP Location: Left arm, Patient Position: Sitting, BP Cuff Size: Adult long) Pulse 58 Temp 98.3 F (Temporal) Resp 18 Ht 5' 2.5 Wt 132 lb LMP (LMP Unknown) SpO2 99% BMI 23.76 kg/m OB Status Postmenopausal Smoking Status Every Day BSA 1.63 m Physical Exam Vitals and nursing note reviewed. Constitutional: General: She is not in acute distress. Appearance: Normal appearance. HENT: Head: Normocephalic and atraumatic. Right Ear: External ear normal. Left Ear: External ear normal. Nose: Nose normal. Mouth/Throat: Mouth: Mucous membranes are moist. Eyes: Extraocular Movements: Extraocular movements intact. Conjunctiva/sclera: Conjunctivae normal. Neck: Vascular: No carotid bruit. Cardiovascular: Rate and Rhythm: Normal rate and regular rhythm. Pulses: Normal pulses. Heart sounds: Normal heart sounds. Pulmonary: Effort: Pulmonary effort is normal. Breath sounds: Normal breath sounds. No wheezing or rales. Abdominal: General: Bowel sounds are normal. There is no distension. Palpations: Abdomen is soft. There is no mass. Tenderness: There is no abdominal tenderness. Hernia: No hernia is present. Musculoskeletal: General: Normal range of motion. Cervical back: Normal range of motion and neck supple. Right lower leg: No edema. Left lower leg: No edema. Skin: General: Skin is warm and dry. Capillary Refill: Capillary refill takes 2 to 3 seconds. Findings: No rash. Neurological: General: No focal deficit present. Mental Status: She is alert and oriented to person, place, and time. Psychiatric: Mood and Affect: Mood normal. Behavior: Behavior normal. Thought Content: Thought content normal. Judgment: Judgment normal. ASSESSMENT AND PLAN: Follow up in about 3 months (around 07/03/2024) for Recheck. Problem List Items Addressed This Visit Hypothyroid (CMS/HCC) Current med: levothyroxine Check labs yearly, with dose changes, as well as when sxs warrent Relevant Medications levothyroxine (Synthroid, Levoxyl) 75 MCG tablet PVD (peripheral vascular disease) (CMS/HCC) Take plavix daily Cont with vascular doctor Relevant Medications clopidogrel (Plavix) 75 MG tablet Anxiety - Primary Cont current meds: xanax OARRS reviewed Recommend during times of increased anxiety to go to quiet place, relaxation techniques such as deep breathing, mediatation LAURA 7 score= 7 PHQ 9 score= 0 Relevant Medications LORazepam (Ativan) 1 MG tablet Tobacco user The patient has been advised of the risks of continued smoking: stroke, NM, all forms of cancer, lung disease, and . Options for quitting smoking include: cold turkey, hypnosis, acupuncture, nicotine replacement meds (gum, lozenges, and patches), Buproprion, and Varenicline. At this time pt is encouraged to evaluate their goals for wanting to quit smoking, and reach out to provider when ready to start this process O.5ppd X 30 years, did have a low dose CT scan lungs in the last 6 months and it was negative GERD (gastroesophageal reflux disease) Recommendations: freq small meals, nothing to eat or drink at least 2 hours prior to bed, limit caffeine, alcohol, as well as spicy foods Meds to limit or avoid if possible: NSAIDS Elevate HOB if possible Current medication: famotidine Benzodiazepine use agreement exists Flatulence symptom Avoid gas forming foods Drink plenty of water Freq walking If any red flags contact office Associated Problem(s): Tobacco user The patient has been advised of the risks of continued smoking: stroke, NM, all forms of cancer, lung disease, and . Options for quitting smoking include: cold turkey, hypnosis, acupuncture, nicotine replacement meds (gum, lozenges, and patches), Buproprion, and Varenicline. At this time pt is encouraged to evaluate their goals for wanting to quit smoking, and reach out to provider when ready to start this process O.5ppd X 30 years, did have a low dose CT scan lungs in the last 6 months and it was negative Associated Problem(s): Anxiety Cont current meds: xanax OARRS reviewed Recommend during times of increased anxiety to go to quiet place, relaxation techniques such as deep breathing, mediatation LAURA 7 score= 7 PHQ 9 score= 0 Associated Problem(s): Hypothyroid (CMS/HCC) Current med: levothyroxine Check labs yearly, with dose changes, as well as when sxs warrent Associated Problem(s): GERD (gastroesophageal reflux disease) Recommendations: freq small meals, nothing to eat or drink at least 2 hours prior to bed, limit caffeine, alcohol, as well as spicy foods Meds to limit or avoid if possible: NSAIDS Elevate HOB if possible Current medication: famotidine Associated Problem(s): PVD (peripheral vascular disease) (CMS/HCC) Take plavix daily Cont with vascular doctor documented in this encounter [facility] 04-05-2024 Instructions Ruth Humphries NP - 04/05/2024 9:40 AM EST Drink at least 4 bottles of water daily, try to go for walks if possible to help move gas through, limit gas forming foods if possible. If changes in bowel habits, or rectal bleeding nausea or abd pain, contact the office documented in this encounter [facility] 01-04-2024 History of Presen t illness Narrative Images from the original note were not included. Daphne Fermin is a 78 y.o. female presents with chief complaint of No chief complaint on file. 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 Symptoms include excessive worry and nervous/anxious behavior. Patient reports no chest pain, decreased concentration, depressed mood, dizziness, feeling of choking, impotence, irritability, malaise, muscle tension, nausea, palpitations, panic, restlessness, shortness of breath or suicidal ideas. Symptoms occur most days. The severity of symptoms is moderate. The quality of sleep is good. Compliance with medications is 76-100%. Thyroid Problem Presents for follow-up visit. Symptoms include anxiety. Patient reports no constipation, depressed mood, diaphoresis, diarrhea, dry skin, fatigue, hair loss, heat intolerance, hoarse voice, leg swelling, menstrual problem, palpitations, tremors, visual change, weight gain or weight loss. The symptoms have been stable. SUBJECTIVE: MEDICATIONS: Current Outpatient Medications Medication Instructions acetaminophen (Tylenol) 325 MG tablet Take by mouth. clobetasol (Temovate) 0.05 % cream 2 times daily clopidogrel (PLAVIX) 75 mg, Oral, Daily famotidine (Pepcid) 10 MG tablet Take by mouth. levothyroxine (SYNTHROID, LEVOXYL) 75 mcg, Oral, Daily before breakfast LORazepam (ATIVAN) 1 mg, Oral, Every 8 hours PRN, Take by mouth. ALLERGIES: Allergies Allergen Reactions Moxifloxacin Anaphylaxis Other Reaction(s): Swelling of Lip/Tongue/Throat Penicillin G Aspirin Bactrim [Sulfamethoxazole-Trimethoprim] REVIEW OF SYMPTOMS: Review of Systems Constitutional: Negative for appetite change, chills, diaphoresis, fatigue, fever, irritability, weight gain and weight loss. HENT: Negative for congestion, ear pain, hoarse voice and sore throat. Eyes: Negative for pain, discharge, redness and visual disturbance. Respiratory: Negative for cough, shortness of breath and wheezing. Cardiovascular: Negative for chest pain, palpitations and leg swelling. Gastrointestinal: Negative for abdominal pain, blood in stool, constipation, diarrhea, nausea and vomiting. Genitourinary: Negative for difficulty urinating, dysuria, frequency, impotence and menstrual problem. Musculoskeletal: Negative for arthralgias, back pain, joint swelling and myalgias. Skin: Negative for rash and wound. Neurological: Negative for dizziness, tremors, seizures, syncope and headaches. Psychiatric/Behavioral: Negative for behavioral problems, decreased concentration, self-injury and suicidal ideas. The patient is nervous/anxious. Hematological: Does not bruise/bleed easily. Endocrine: Negative for heat intolerance, polydipsia, polyphagia and polyuria. Allergic/Immunologic: Negative for [...] in her sister. OBJECTIVE: Visit Vitals BP 116/78 (BP Location: Left arm, Patient Position: Sitting, BP Cuff Size: Adult long) Pulse 73 Temp 98.1 F (Temporal) Resp 18 Ht 5' 2.5 Wt 130 lb 3.2 oz LMP (LMP Unknown) SpO2 96% BMI 23.43 kg/m OB Status Postmenopausal Smoking Status Every Day BSA 1.61 m Physical Exam Vitals and nursing note reviewed. Constitutional: General: She is not in acute distress. Appearance: Normal appearance. HENT: Head: Normocephalic and atraumatic. Right Ear: External ear normal. Left Ear: External ear normal. Nose: Nose normal. Mouth/Throat: Mouth: Mucous membranes are moist. Eyes: Extraocular Movements: Extraocular movements intact. Conjunctiva/sclera: Conjunctivae normal. Neck: Vascular: No carotid bruit. Cardiovascular: Rate and Rhythm: Normal rate and regular rhythm. Pulses: Normal pulses. Heart sounds: Normal heart sounds. Pulmonary: Effort: Pulmonary effort is normal. Breath sounds: Normal breath sounds. No stridor. No wheezing, rhonchi or rales. Abdominal: General: Bowel sounds are normal. There is no distension. Palpations: Abdomen is soft. There is no mass. Tenderness: There is no abdominal tenderness. Musculoskeletal: General: Normal range of motion. Cervical back: Normal range of motion and neck supple. Right lower leg: No edema. Left lower leg: No edema. Skin: General: Skin is warm and dry. Capillary Refill: Capillary refill takes 2 to 3 seconds. Findings: No rash. Neurological: General: No focal deficit present. Mental Status: She is alert and oriented to person, place, and time. Psychiatric: Mood and Affect: Mood normal. Behavior: Behavior normal. Thought Content: Thought content normal. Judgment: Judgment normal. ASSESSMENT AND PLAN: Follow up in about 3 months (around 04/05/2024). Problem List Items Addressed This Visit Hypothyroid (CMS/HCC) Continue current meds Labs done in 08/2023 Relevant Medications levothyroxine (Synthroid, Levoxyl) 75 MCG tablet Anxiety - Primary Cont current meds OARRS reviewed Recommend during times of increased anxiety to go to quiet place, relaxation techniques such as deep breathing, mediatation Relevant Medications LORazepam (Ativan) 1 MG tablet Tobacco user The patient has been advised of the risks of continued smoking: stroke, NM, all forms of cancer, lung disease, and . Options for quitting smoking include: cold turkey, hypnosis, acupuncture, nicotine replacement meds (gum, lozenges, and patches), Buproprion, and Varenicline. At this time pt is encouraged to evaluate their goals for wanting to quit smoking, and reach out to provider when ready to start this process BMI 24.0-24.9, adult Benzodiazepine use agreement exists Med agreement and UDS completed 05/2023 Associated Problem(s): Screening for lung cancer Patient meets requirements for low dose CT scan for lung cancer screening: age 55-80, patient is a current smoker or has quit in the last 15 years. Smoking history is > or equal to 30 pack-year. If needed the patient is able or willing to receive treatment. The patient is not currently exhibiting any s/s of lung cancer. We have discussed the benefits as well as harms of screening, follow up testing if needed, false positive rates. We have also discussed that this type of CT scan has less radiation exposure than a traditional lung CT scan. We have also discussed that it is important to follow with annual screening for this. The patient has also been counseled on the importance of smoking cessation. Associated Problem(s): Tobacco user The patient has been advised of the risks of continued smoking: stroke, NM, all forms of cancer, lung disease, and . Options for quitting smoking include: cold turkey, hypnosis, acupuncture, nicotine replacement meds (gum, lozenges, and patches), Buproprion, and Varenicline. At this time pt is encouraged to evaluate their goals for wanting to quit smoking, and reach out to provider when ready to start this process Associated Problem(s): Hypothyroid (CMS/HCC) Continue current meds Labs done in 08/2023 Associated Problem(s): Anxiety Cont current meds OARRS reviewed Recommend during times of increased anxiety to go to quiet place, relaxation techniques such as deep breathing, mediatation Associated Problem(s): Benzodiazepine use agreement exists Med agreement and UDS completed 05/2023 documented in this encounter [facility] 11-09-2023 History of Presen t illness Narrative Associated Problem(s): Lymphocytopenia Continue with oncology Associated Problem(s): ERICA positive Has been referred to Rheum, mid month, + ERICA level Associated Problem(s): Encounter for subsequent annual wellness visit (AWV) in Medicare patient Reviewed Ht/Wt/BMI Recommend eye exam yearly Recommend dental exams twice a year Declines all immunizations Exercises is recommended most days of the week (appropriate as chronic conditions allow) Follow up yearly and prn Associated Problem(s): Anxiety Cont current meds Associated Problem(s): Hypothyroid (CMS/HCC) Continue current meds Associated Problem(s): PVD (peripheral vascular disease) (CMS/HCC) Cont with vascular Daphne Fermin is a 78 y.o. female presents with chief complaint of No chief complaint on file. HPI: Here for AWV: Diet: variety Activity: age appropriate Mental: anxiety, takes ativan Concerns: saw oncology and is going to see Rheumatology Living will and HCPOA: yes SUBJECTIVE: MEDICATIONS: Current Outpatient Medications Medication Instructions acetaminophen (Tylenol) 325 MG tablet Oral clobetasol (Temovate) 0.05 % cream Topical, 2 times daily clopidogrel (PLAVIX) 75 mg, Oral, Daily famotidine (Pepcid) 10 MG tablet Oral levothyroxine (SYNTHROID, LEVOXYL) 75 mcg, Oral, Daily before breakfast loratadine (CLARITIN) 10 mg, Oral, Daily LORazepam (ATIVAN) 1 mg, Oral, Every 8 hours PRN, Take by mouth. nitrofurantoin, macrocrystal-monohydrate, (Macrobid) 100 MG capsule 1 capsule, Oral, 2 times daily tiZANidine (ZANAFLEX) 2 mg, Oral, Every 12 hours PRN ALLERGIES: Allergies Allergen Reactions Moxifloxacin Anaphylaxis Other Reaction(s): Swelling of Lip/Tongue/Throat Penicillin G Aspirin Bactrim [Sulfamethoxazole-Trimethoprim] REVIEW OF SYMPTOMS: Review of Systems Constitutional: Negative for appetite change, chills and fever. HENT: Negative for congestion, ear pain and sore throat. Eyes: Negative for pain, discharge, redness and visual disturbance. Respiratory: Negative for cough, shortness of breath and wheezing. Cardiovascular: Negative for chest pain, palpitations and leg swelling. Gastrointestinal: Negative for abdominal pain, blood in stool, constipation, diarrhea, nausea and vomiting. Genitourinary: Negative for difficulty urinating, dysuria and frequency. Musculoskeletal: Positive for back pain. Negative for arthralgias, joint swelling and myalgias. Skin: Negative for [...] in her sister. OBJECTIVE: Visit Vitals BP 104/80 (BP Location: Left arm, Patient Position: Sitting, BP Cuff Size: Adult long) Pulse 75 Temp 98.8 F (Temporal) Resp 19 Ht 5' 2.5 Wt 131 lb 9.6 oz LMP (LMP Unknown) SpO2 95% BMI 23.69 kg/m OB Status Postmenopausal Smoking Status Every Day BSA 1.62 m Physical Exam Vitals and nursing note reviewed. Constitutional: General: She is not in acute distress. Appearance: Normal appearance. HENT: Head: Normocephalic and atraumatic. Right Ear: External ear normal. Left Ear: External ear normal. Nose: Nose normal. Mouth/Throat: Mouth: Mucous membranes are moist. Eyes: Extraocular Movements: Extraocular movements intact. Conjunctiva/sclera: Conjunctivae normal. Neck: Vascular: No carotid bruit. Cardiovascular: Rate and Rhythm: Normal rate and regular rhythm. Pulses: Normal pulses. Heart sounds: Normal heart sounds. Pulmonary: Effort: Pulmonary effort is normal. Breath sounds: Normal breath sounds. No wheezing or rales. Abdominal: General: Bowel sounds are normal. There is no distension. Palpations: Abdomen is soft. There is no mass. Tenderness: There is no abdominal tenderness. Musculoskeletal: General: Normal range of motion. Cervical back: Normal range of motion and neck supple. Right lower leg: No edema. Left lower leg: No edema. Lymphadenopathy: Cervical: No cervical adenopathy. Skin: General: Skin is warm and dry. [...] file. Problem List Items Addressed This Visit Hypothyroid (CMS/HCC) Continue current meds PVD (peripheral vascular disease) (CMS/HCC) Cont with vascular Relevant Medications clopidogrel (Plavix) 75 MG tablet Anxiety Cont current meds Tobacco user Lymphocytopenia Continue with oncology Encounter for subsequent annual wellness visit (AWV) in Medicare patient - Primary Reviewed Ht/Wt/BMI Recommend eye exam yearly Recommend dental exams twice a year Declines all immunizations Exercises is recommended most days of the week (appropriate as chronic conditions allow) Follow up yearly and prn ERICA positive Has been referred to Rheum, mid month, + ERICA level documented in this encounter [facility] 04-13-2023 History of Presen t illness Narrative [...] Addressed This Visit PVD (peripheral vascular disease) ([facility]) [...] loratadine (Claritin) 10 MG tablet Mixed hyperlipidemia ([facility]) Reviewed labs from 08/2022, refuses statin use, and does not want to try zetia at this time documented in this encounter [facility] 03-08-2023 Evaluation note Encounter Date Diagnosis Assessment [...] her PCP on with a scheduled appointment. [facility] Other 10-05-2023 Evaluation note* Encounter Date Diagnosis Assessment Notes Treatment Notes Treatment Clinical Notes Nov, Lower abdominal pain (ICD-10 - [...] pain. Patient verbalized understanding of treatment plan. [facility] Other 06-01-2023 Evaluation note* Encounter Date Diagnosis Assessment Notes Treatment Notes Treatment Clinical Notes Jul, Urinary frequency (ICD-10 - R35.0) [...] understanding and is agreeable to treatment plan [employer] Other Evaluation note* Diagnosis Dysuria documented in this encounter [facility] Work Phone: evaluation note* Diagnosis Dysfunction of both eustachian tubes- Primary PVD (peripheral vascular disease) ([facility]/HCC) Unspecified peripheral vascular disease Anxiety Anxiety state, unspecified Mixed hyperlipidemia (CMS/HCC) Mixed hyperlipidemia [facility] Diagnosis Onset Date Resolution Status Frequency of urination nonea ctive [facility] Work Phone: Evaluation noteNo assessment information available [facility] Work Phone: Evaluation note* Diagnosis Onset Date Resolution Status Family history of lupus erythematosus acute Family history of rheumatoid arthritis acute Family history of sarcoidosis acute Sussy's thyroiditis acut e Lymphopenia acute Screening for lung cancer ac [place] Tobacco smoker, less than 10 cigarettes per day acute [facility] Work Phone: Evaluation note* Diagnosis Onset Date Resolution Status Family history of lupus erythematosus acute Family history of rheumatoid arthritis acute Family history of sarcoidosis acute Sussy's thyroiditis acut e Lymphopenia acute Screening for lung cancer ac [place] Tobacco smoker, less than 10 cigarettes per day acute Family history of lupus erythematosus acute Family history of rheumatoid arthritis acute Family history of sarcoidosis acute Sussy's thyroiditis acut e Lymphopenia acute Screening for lung cancer ac [place] Tobacco smoker, less than 10 cigarettes per day acute [facility] Work Phone: Evaluation note* Diagnosis Anxiety- Primary Anxiety state, unspecified Other acute sinusitis, recurrence not specified- Primary Tobacco user Tobacco use disorder BMI 24.0-24.9, adult PVD (peripheral vascular disease) ([facility]/HCC) Unspecified peripheral vascular disease Chronic rhinitis Rib pain on left side- Primary Tobacco user Tobacco use disorder BMI 24.0-24.9, adult Flank pain Abdominal pain, unspecified site Rectal bleeding Hemorrhage of rectum and anus Dysfunction of both eustachian tubes- Primary PVD (peripheral vascular disease) ([facility]/HCC) Unspecified peripheral vascular disease Anxiety Anxiety state, unspecified Mixed hyperlipidemia ([facility]) Mixed hyperlipidemia Anxiety- Primary Anxiety state, unspecified Benzodiazepine use agreement exists Raynaud's disease without gangrene- Primary PVD (peripheral vascular disease) ([facility]) Unspecified peripheral vascular disease Gastroesophageal reflux disease, unspecified whether esophagitis present Hypothyroidism, unspecified type (CMS/HCC) Mixed hyperlipidemia ([facility]) Mixed hyperlipidemia Localized swelling of left foot Anxiety- Primary Anxiety state, unspecified Hypothyroidism, unspecified type ([facility]CC) Dysfunction of both eustachian tubes Tobacco user Tobacco use disorder Benzodiazepine use agreement exists PVD (peripheral vascular disease) ([facility]) Unspecified peripheral vascular disease Lymphocytopenia Encounter for subsequent annual wellness visit (AWV) in Medicare patient- Primary PVD (peripheral vascular disease) (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) Tobacco user Tobacco use disorder Hypothyroidism, unspecified type ([facility]) [facility] Diagnosis Dysfunction of both eustachian tubes [facility]* Diagnosis UTI symptoms- Primary [facility] Diagnosis Encounter for subsequent annual wellness visit (AWV) in Medicare patient- Primary PVD (peripheral vascular disease) ([facility]) Unspecified peripheral vascular disease Hypothyroidism, unspecified type ([facility]) Anxiety Anxiety state, unspecified Tobacco user Tobacco use disorder ERICA positive Lymphocytopenia [facility] Diagnosis Anxiety- Primary Anxiety state, unspecified Other acute sinusitis, recurrence not specified- Primary Tobacco user Tobacco use disorder BMI 24.0-24.9, adult PVD (peripheral vascular disease) ([facility]) Unspecified peripheral vascular disease Chronic rhinitis Rib pain on left side- Primary Tobacco user Tobacco use disorder BMI 24.0-24.9, adult Flank pain Abdominal pain, unspecified site Rectal bleeding Hemorrhage of rectum and anus Dysfunction of both eustachian tubes- Primary PVD (peripheral vascular disease) ([facility]) Unspecified peripheral vascular disease Anxiety Anxiety state, unspecified Mixed hyperlipidemia ([facility]) Mixed hyperlipidemia Anxiety- Primary Anxiety state, unspecified Benzodiazepine use agreement exists Raynaud's disease without gangrene- Primary PVD (peripheral vascular disease) ([facility]) Unspecified peripheral vascular disease Gastroesophageal reflux disease, unspecified whether esophagitis present Hypothyroidism, unspecified type ([facility]) Mixed hyperlipidemia ([facility]) Mixed hyperlipidemia Localized swelling of left foot Anxiety- Primary Anxiety state, unspecified Hypothyroidism, unspecified type ([facility]) Dysfunction of both eustachian tubes Tobacco user Tobacco use disorder Benzodiazepine use agreement exists PVD (peripheral vascular disease) ([facility]) Unspecified peripheral vascular disease Lymphocytopenia Encounter for subsequent annual wellness visit (AWV) in Medicare patient- Primary PVD (peripheral vascular disease) ([facility]) Unspecified peripheral vascular disease Hypothyroidism, unspecified type (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) Tobacco user Tobacco use disorder Hypothyroidism, unspecified type ([facility]) Anxiety- Primary Anxiety state, unspecified PVD (peripheral vascular disease) ([facility]) Unspecified peripheral vascular disease Gastroesophageal reflux disease, unspecified whether esophagitis present Hypothyroidism, unspecified type ([facility]) Benzodiazepine use agreement exists Tobacco user Tobacco use disorder Flatulence symptom Flatulence, eructation, and gas pain [facility] Diagnosis Anxiety- Primary Anxiety state, unspecified Other acute sinusitis, recurrence not specified- Primary Tobacco user Tobacco use disorder BMI 24.0-24.9, adult PVD (peripheral vascular disease) ([facility]) Unspecified peripheral vascular disease Chronic rhinitis Rib pain on left side- Primary Tobacco user Tobacco use disorder BMI 24.0-24.9, adult Flank pain Abdominal pain, unspecified site Rectal bleeding Hemorrhage of rectum and anus Dysfunction of both eustachian tubes- Primary PVD (peripheral vascular disease) ([facility]) Unspecified peripheral vascular disease Anxiety Anxiety state, unspecified Mixed hyperlipidemia ([facility]) Mixed hyperlipidemia Anxiety- Primary Anxiety state, unspecified Benzodiazepine use agreement exists Raynaud's disease without gangrene- Primary PVD (peripheral vascular disease) ([facility]) Unspecified peripheral vascular disease Gastroesophageal reflux disease, unspecified whether esophagitis present Hypothyroidism, unspecified type ([facility]) Mixed hyperlipidemia ([facility]) Mixed hyperlipidemia Localized swelling of left foot Anxiety- Primary Anxiety state, unspecified Hypothyroidism, unspecified type ([facility]) Dysfunction of both eustachian tubes Tobacco user Tobacco use disorder Benzodiazepine use agreement exists PVD (peripheral vascular disease) ([facility]) Unspecified peripheral vascular disease Lymphocytopenia Encounter for subsequent annual wellness visit (AWV) in Medicare patient- Primary PVD (peripheral vascular disease) ([facility]) Unspecified peripheral vascular disease Hypothyroidism, unspecified type (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) Tobacco user Tobacco use disorder Hypothyroidism, unspecified type ([facility]) Anxiety- Primary Anxiety state, unspecified PVD (peripheral vascular disease) ([facility]) Unspecified peripheral vascular disease Gastroesophageal reflux disease, unspecified whether esophagitis present Hypothyroidism, unspecified type ([facility]) Benzodiazepine use agreement exists Tobacco user Tobacco use disorder Flatulence symptom Flatulence, eructation, and gas pain Hypothyroidism, unspecified type ([facility]) documented [facility] Diagnosis Anxiety- Primary Anxiety state, unspecified Other acute sinusitis, recurrence not specified- Primary Tobacco user Tobacco use disorder BMI 24.0-24.9, adult PVD (peripheral vascular disease) ([facility]) Unspecified peripheral vascular disease Chronic rhinitis Rib pain on left side- Primary Tobacco user Tobacco use disorder BMI 24.0-24.9, adult Flank pain Abdominal pain, unspecified site Rectal bleeding Hemorrhage of rectum and anus Dysfunction of both eustachian tubes- Primary PVD (peripheral vascular disease) ([facility]) Unspecified peripheral vascular disease Anxiety Anxiety state, unspecified Mixed hyperlipidemia ([facility]) Mixed hyperlipidemia Anxiety- Primary Anxiety state, unspecified Benzodiazepine use agreement exists Raynaud's disease without gangrene- Primary PVD (peripheral vascular disease) ([facility]) Unspecified peripheral vascular disease Gastroesophageal reflux disease, unspecified whether esophagitis present Hypothyroidism, unspecified type ([facility]) Mixed hyperlipidemia ([facility]) Mixed hyperlipidemia Localized swelling of left foot Anxiety- Primary Anxiety state, unspecified Hypothyroidism, unspecified type ([facility]) Dysfunction of both eustachian tubes Tobacco user Tobacco use disorder Benzodiazepine use agreement exists PVD (peripheral vascular disease) ([facility]) Unspecified peripheral vascular disease Lymphocytopenia Encounter for subsequent annual wellness visit (AWV) in Medicare patient- Primary PVD (peripheral vascular disease) ([facility]) Unspecified peripheral vascular disease Hypothyroidism, unspecified type (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) Tobacco user Tobacco use disorder Hypothyroidism, unspecified type ([facility]) Anxiety- Primary Anxiety state, unspecified PVD (peripheral vascular disease) ([facility]) Unspecified peripheral vascular disease Gastroesophageal reflux disease, unspecified whether esophagitis present Hypothyroidism, unspecified type ([facility]) Benzodiazepine use agreement exists Tobacco user Tobacco use disorder Flatulence symptom Flatulence, eructation, and gas pain PVD (peripheral vascular disease) ([facility]) Unspecified peripheral vascular disease [facility] Diagnosis Anxiety- Primary Anxiety state, unspecified Other acute sinusitis, recurrence not specified- Primary Tobacco user Tobacco use disorder BMI 24.0-24.9, adult PVD (peripheral vascular disease) ([facility]) Unspecified peripheral vascular disease Chronic rhinitis Rib pain on left side- Primary Tobacco user Tobacco use disorder BMI 24.0-24.9, adult Flank pain Abdominal pain, unspecified site Rectal bleeding Hemorrhage of rectum and anus Dysfunction of both eustachian tubes- Primary PVD (peripheral vascular disease) ([facility]) Unspecified peripheral vascular disease Anxiety Anxiety state, unspecified Mixed hyperlipidemia ([facility]) Mixed hyperlipidemia Anxiety- Primary Anxiety state, unspecified Benzodiazepine use agreement exists Raynaud's disease without gangrene- Primary PVD (peripheral vascular disease) ([facility]) Unspecified peripheral vascular disease Gastroesophageal reflux disease, unspecified whether esophagitis present Hypothyroidism, unspecified type ([facility] Mixed hyperlipidemia ([facility]) Mixed hyperlipidemia Localized swelling of left foot Anxiety- Primary Anxiety state, unspecified Hypothyroidism, unspecified type ([facility]) Dysfunction of both eustachian tubes Tobacco user Tobacco use disorder Benzodiazepine use agreement exists PVD (peripheral vascular disease) ([facility]) Unspecified peripheral vascular disease Lymphocytopenia Encounter for subsequent annual wellness visit (AWV) in Medicare patient- Primary PVD (peripheral vascular disease) [place] Unspecified peripheral vascular disease Hypothyroidism, unspecified type (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) Anxiety- Primary Anxiety state, unspecified PVD (peripheral vascular disease) ([facility]) Unspecified peripheral vascular disease Gastroesophageal reflux disease, unspecified whether esophagitis present Hypothyroidism, unspecified type [place] Benzodiazepine use agreement exists Tobacco user Tobacco use disorder Flatulence symptom Flatulence, eructation, and gas pain Viral upper respiratory tract infection- Primary Acute upper respiratory infections of unspecified site Tobacco user Tobacco use disorder documented in [facility] encounter [facility] Diagnosis Anxiety- Primary Anxiety state, unspecified Other acute sinusitis, recurrence not specified- Primary Tobacco user Tobacco use disorder BMI 24.0-24.9, adult PVD (peripheral vascular disease) ([facility]) Unspecified peripheral vascular disease Chronic rhinitis Rib pain on left side- Primary Tobacco user Tobacco use disorder BMI 24.0-24.9, adult Flank pain Abdominal pain, unspecified site Rectal bleeding Hemorrhage of rectum and anus Dysfunction of both eustachian tubes- Primary PVD (peripheral vascular disease) ([facility]) Unspecified peripheral vascular disease Anxiety Anxiety state, unspecified Mixed hyperlipidemia ([facility]) Mixed hyperlipidemia Anxiety- Primary Anxiety state, unspecified Benzodiazepine use agreement exists Raynaud's disease without gangrene- Primary PVD (peripheral vascular disease) ([facility]) Unspecified peripheral vascular disease Gastroesophageal reflux disease, unspecified whether esophagitis present Hypothyroidism, unspecified type ([facility]) Mixed hyperlipidemia ([facility]) Mixed hyperlipidemia Localized swelling of left foot Anxiety- Primary Anxiety state, unspecified Hypothyroidism, unspecified type ([facility]) Dysfunction of both eustachian tubes Tobacco user Tobacco use disorder Benzodiazepine use agreement exists PVD (peripheral vascular disease) ([facility]) Unspecified peripheral vascular disease Lymphocytopenia Encounter for subsequent annual wellness visit (AWV) in Medicare patient- Primary PVD (peripheral vascular disease) ([facility]) Unspecified peripheral vascular disease Hypothyroidism, unspecified type (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) Tobacco user Tobacco use disorder Hypothyroidism, unspecified type [place] Anxiety- Primary Anxiety state, unspecified PVD (peripheral vascular disease) [place] Unspecified peripheral vascular disease Gastroesophageal reflux disease, unspecified whether esophagitis present Hypothyroidism, unspecified type ([facility]) Benzodiazepine use agreement exists Tobacco user Tobacco use disorder Flatulence symptom Flatulence, eructation, and gas pain Viral upper respiratory tract infection- Primary Acute upper respiratory infections of unspecified site Tobacco user Tobacco use disorder Anxiety Anxiety state, unspecified documented in this encounter [facility]* Diagnosis Anxiety- Primary Anxiety state, unspecified Other acute sinusitis, recurrence not specified- Primary Tobacco user Tobacco use disorder BMI 24.0-24.9, adult PVD (peripheral vascular disease) Unspecified peripheral vascular disease Chronic rhinitis Rib pain on left side- Primary Tobacco user Tobacco use disorder BMI 24.0-24.9, adult Flank pain Abdominal pain, unspecified site Rectal bleeding Hemorrhage of rectum and anus Dysfunction of both eustachian tubes- Primary PVD (peripheral vascular disease) Unspecified peripheral vascular disease Anxiety Anxiety state, unspecified Mixed hyperlipidemia Mixed hyperlipidemia Anxiety- Primary Anxiety state, unspecified Benzodiazepine use agreement exists Raynaud's disease without gangrene- Primary PVD (peripheral vascular disease) Unspecified peripheral vascular disease Gastroesophageal reflux disease, unspecified whether esophagitis present Hypothyroidism, unspecified type Mixed hyperlipidemia Mixed hyperlipidemia Localized swelling of left foot Anxiety- Primary Anxiety state, unspecified Hypothyroidism, unspecified type Dysfunction of both eustachian tubes Tobacco user Tobacco use disorder Benzodiazepine use agreement exists PVD (peripheral vascular disease) Unspecified peripheral vascular disease Lymphocytopenia Encounter for subsequent annual wellness visit (AWV) in Medicare patient- Primary PVD (peripheral vascular disease) Unspecified peripheral vascular disease Hypothyroidism, unspecified type Anxiety Anxiety state, unspecified Tobacco user Tobacco use disorder ERICA positive Lymphocytopenia Anxiety- Primary Anxiety state, unspecified BMI 24.0-24.9, adult Benzodiazepine use agreement exists 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 Tobacco user Tobacco use disorder Hypothyroidism, unspecified type Anxiety- Primary Anxiety state, unspecified PVD (peripheral vascular disease) Unspecified peripheral vascular disease Gastroesophageal reflux disease, unspecified whether esophagitis present Hypothyroidism, unspecified type Benzodiazepine use agreement exists Tobacco user Tobacco use disorder Flatulence symptom Flatulence, eructation, and gas pain Viral upper respiratory tract infection- Primary Acute upper respiratory infections of unspecified site Tobacco user Tobacco use disorder Anxiety- Primary Anxiety state, unspecified PVD (peripheral vascular disease) Unspecified peripheral vascular disease Gastroesophageal reflux disease, unspecified whether esophagitis present Hypothyroidism, unspecified type Tobacco user Tobacco use disorder Mixed hyperlipidemia Mixed hyperlipidemia Encounter for screening mammogram for malignant neoplasm of breast documented in this encounter [facility] N[facility]ative - Reported* Type Description Date Medical History anxiety Medical History Esophageal reflux Medical History Hypothyroidism Medical History peripheral vascular disease Surgical History appendectomy Surgical History partial hysterectomy Surgical History bowel surgery Surgical History colonoscopy Hospitalization History see above Hospitalization History abdominal pain [employer] Other Assessments Diagnosis Vaginal irritation Unspecified noninflammatory disorder of vagina Diagnosis Frequency of urination Urinary frequency Vaginal infection Vaginitis and vulvovaginitis, unspecified STD exposure Advance Directives No Advanced Directives Records FoundDocuments on File Type Date Recorded Patient Player Development Executive Expl anation ACP-Advance Directive ACP-Power of Actuarial Associate Advance Directive Response Recorded Date/ Time Advance [...] sister Heart disease Unknown Malignant neoplasm Unknown Relationship Condition Age at Onset Recorded Date/T nya brother Diabetes mellitus Unknown Heart disease Unknown Hypertension Unknown father Myocardial infarction Unknown Family history of mental disorder Unknown Unknown family member Unknown mother Unknown Diabetes mellitus Unknown son Cardiomyopathy Unknown sister Heart disease Unknown Malignant neoplasm Unknown Chief Complaint and Reason for Visit Chief Complaint Poss Sinus Infection , Rib Pain plugged ears, dysuria, runny nose Reason for Visit Frequency of urinati on Chief Complaint Unknown Chief Complaint Unknown NEW Lymphocytopenia Chief Complaint Unknown NEW Lymphocytopenia Lymphocytopenia g02.97 f17.210 Reason for Visit Family history of chrystal pus erythematosus Family history of rheumatoid arthritis Family history of sarcoidosis Sussy's thyroiditis Lymphopenia Screening for lung cancer Tobacco smoker, less than 10 cigarettes per day Chief Complaint Unknown NEW Lymphocytopenia g02.97 f17.210 Lymphocytopenia Follow Up Reason for Visit Family history of chrystal pus erythematosus Family history of rheumatoid arthritis Family history of sarcoidosis Sussy's thyroiditis Lymphopenia Screening for lung cancer Tobacco smoker, less than 10 cigarettes per day Family history of lupus erythematosus Family history of rheumatoid arthritis Family history of sarcoidosis Sussy's thyroiditis Lymphopenia Screening for lung cancer Tobacco smoker, less than 10 cigarettes per day Additional Source Comments INFORMATION SOURCE (unrecogn ized section and content) DATE CREATED AUTHOR 12/08/2021 [facility] DATE CREATED AUTHOR AUTHOR'S ORGANIZ ATION 08/06/2022 [facility] DATE CREATED AUTHOR AUTHOR'S ORGANIZ ATION 11/04/2023 [facility] DATE CREATED AUTHOR AUTHOR'S ORGANIZ ATION 11/26/2023 [facility] DATE CREATED AUTHOR AUTHOR'S ORGANIZ ATION 05/03/2024 [facility] DATE CREATED AUTHOR AUTHOR'S ORGANIZ ATION 10/06/2024 [facility] Care Teams (unrecognized sec tion and content) Historical Archeologist Relationship Specialty Start Date End Date Sr Kvng Urbina DO [address] [place] [address] PCP - General Family Medicine 06/30/15 Historical Archeologist Relationship Specialty Start Date End Date Norman Matias MD [address] [place] [phone] PCP - [facility] Medicine 03/21/23 Historical Archeologist Relationship Specialty Start Date End Date Norman Matias MD [address] [place] [address] PCP - [facility] 03/21/23 Team Status: Active Member Role Status Dates Outreach [facility] Primary Care Provider Active Team Status: Inactive Member Role Status Dates Pao Terry RN Attending Provider Active Start : March 08, 2023 End: March 08, 2023 Team Status: Inactive Member Role Status Dates Nuzhat Liz APRN Attending Provider Active Start: May 26, 2023 End: May 26, 2023 [facility] Primary Care Provider Active Start: May 26, 2023 End: May 26, 2023 Team Status: Inactive Member Role Status Dates Ruth Humphries Attending Provider Active Start: September 19, 2023 End: September 19, 2023 Team Status: Active Member Role Status Dates Ruth Humphries Primary Care Provider Active Team Status: Inactive Member Role Status Dates Josselyn Gomez MD Attending Provider Active Start: October 12, 2023 End: October 12, 2023 Ruth Humphries Primary Care Provide r, Referring Provider Active Start: October 12, 2023 End: October 12, 2023 Team Status: Active Member Role Status Dates Ruth Humphries Primary Care Provide r, Referring Provider Active Start: October 13, 2023 Josselyn Gomez MD Attending Provider Active Start: October 13, 2023 Team Status: Inactive Member Role Status Dates Ruth Humphries Primary Care Provider Active Sta rt: November 01, 2023 End: November 01, 2023 Josselyn Gomez MD Attending Provider Active Start: November 01, 2023 End: November 01, 2023 Team Status: Active Member Role Status Dates Ruth Humphries Primary Care Provide r, Referring Provider Active Start: November 02, 2023 Josselyn Gomez MD Attending Provider Active Start: November 02, 2023 Team Status: Inactive Member Role Status Dates Ruth Humphries Primary Care Provider Active Sta rt: November 02, 2023 End: November 02, 2023 Josselyn Gomez MD Attending Provider Active Start: November 02, 2023 End: November 02, 2023 Team Status: Inactive Member Role Status Dates Ruth Humphries Primary Care Provider Active Sta rt: November 16, 2023 End: November 16, 2023 Beck Holloway MD Attending Provider Active St art: November 16, 2023 End: November 16, 2023 Historical Archeologist Relationship Specialty Start Date End Date Norman Matias MD [address] [place] [phone] PCP - General Family Medicine 03/21/23 Historical Archeologist Relationship Specialty Start Date End Date Norman Matias MD [address] [place] [phone] PCP - General Family Medicine 03/21/23 Historical Archeologist Relationship Specialty Start Date End Date Norman Matias MD [address] [place] [phone] PCP - General Family Medicine 03/21/23 Historical Archeologist Relationship Specialty Start Date End Date Norman Matias MD [address] [place] [phone] PCP - General Family Medicine 03/21/23 Historical Archeologist Relationship Specialty Start Date End Date Norman Matias MD [address] [place] [phone] PCP - General Family Medicine 03/21/23 Historical Archeologist Relationship Specialty Start Date End Date Noramn Matias MD [address] [place] [phone] PCP - General Family Medicine 03/21/23 Historical Archeologist Relationship Specialty Start Date End Date Norman Matias MD [address] [place] [phone] PCP - General Family Medicine 03/21/23 Historical Archeologist Relationship Specialty Start Date End Date Norman Matias MD [address] [place] [phone] PCP - General Family Medicine 03/21/23 Ruth Humphries NP [address] [place] [phone] PCP - [facility] 04/06/24 Historical Archeologist Relationship Specialty Start Date End Date Normna Matias MD [address] [place] [phone] PCP - General Family Medicine 03/21/23 Ruth Humphries NP [address] [place] [phone] PCP - [facility] 04/06/24 Historical Archeologist Relationship Specialty Start Date End Date Norman Matias MD [address] [place] [phone] PCP - General Family Medicine 03/21/23 Ruth Humphries NP [address] [place] [phone] PCP - [facility] 04/06/24 Historical Archeologist Relationship Specialty Start Date End Date Norman Matias MD [address] [place] [phone] PCP - General Family Medicine 03/21/23 Ruth Humphries NP [address] [place] [phone] PCP - [facility] 04/06/24 Historical Archeologist Relationship Specialty Start Date End Date Norman Matias MD [address] [place] [phone] PCP - General Family [facility] 03/21/23 Ruth Humphries NP [address] [place] [phone] PCP - [facility] Re[facility] 04/06/24 Historical Archeologist Relationship Specialty Start Date End Date Norman Matias MD [address] [place] [phone] PCP - General Family Medicine 03/21/23 Ruth Humphries NP [address] [place] [phone] PCP - [facility] 04/06/24 REASON FOR VISIT (unrecogniz ed section and content) Reason Comments Anxiety Reason Comments Med Refill Reason Comments Sore Throat Reason Onset Date Comments Med Refill 07/11/2024 Goals (unrecognized section and content) Goals may [...] BE BASED ON THE PRIMARY CLINICAL RECORDS. [facility], [facility]. provides no warranty or guarantee of the accuracy or completeness of information in this document.
--- NOTE | 2024-10-15 06:54 | MM_ITS ---
Patient Name: MARGARITA COSME MR#: [id number] : 1945 Exam Date: 10/15/2024 Ordering Doctor: BECKY MCCOY CNP RADIOLOGY REPORT PROCEDURE: MM TOMOSYNTHESIS SCREENING BI COMPARISON: MM TOMOSYNTHESIS SCREENING BI, 09/19/2023. MM TOMOSYNTHESIS SCREENING BI, 09/15/2022. MG MAMM SCREEN ISIDRO W CAD, 07/31/2019. MG MAMM ISIDRO SCRN W CAD DIG, 04/20/2013. INDICATIONS: screening for malignant neoplasm of breast Calculator Name NCI Breast Cancer Risk Assessment Tool 5 Year Breast Cancer Risk 1.70% Lifetime Breast Cancer Risk 3.00% Personal Breast Cancer No Personal Ovarian Cancer No Treatments None Family Cancers Sister with cervical cancer at age ~30. LOCATION: [facility] BREAST COMPOSITION: There are scattered areas of fibroglandular density. FINDINGS: DIAGNOSTIC CATEGORY 1--NEGATIVE. RIGHT BREAST: No significant suspicious finding. LEFT BREAST: No significant suspicious finding. RECOMMENDATIONS: ROUTINE MAMMOGRAM AND CLINICAL EVALUATION IN 12 MONTHS. PLEASE NOTE: A NORMAL MAMMOGRAM DOES NOT EXCLUDE THE POSSIBILITY OF BREAST CANCER. A CLINICALLY SUSPICIOUS PALPABLE LUMP SHOULD BE BIOPSIED. Dictated by: Rishi Devlin MD on 10/15/2024 at 12:09 Approved by: Rishi Devlin MD on 10/15/2024 at 12:13
[2024-10-15 07:20] LABS: Hematocrit 41.3 % (36.0-48.0); Hemoglobin 13.3 g/dL (12.0-16.0); Immature Granulocytes Abs Auto 0.02 10^3/uL (0.00-0.03); Immature Granulocytes Pct Auto 0.4 % (0.0-0.5); Lymphocytes Absolute Auto 0.9 10^3/uL (1.2-3.8); Mean Corpuscular HGB Conc 32.2 g/dL (29.9-35.2); Mean Corpuscular Hemoglobin 29.7 pg (26.7-34.0); Mean Corpuscular Volume 92.2 fL (81.0-99.0); Platelet Count 255 10^3/uL (150-450); Red Blood Count 4.48 10^6/uL (4.20-5.40); White Blood Count 5.6 10^3/uL (4.0-11.0)
[2024-10-15 07:32] LABS: Glucose Urine UA NEGATIVE (NEGATIVE)
[2024-10-15 08:03] LABS: Albumin Globulin Ratio 1.1; Albumin Level 4.0 g/dL (3.4-5.0); Alkaline Phosphatase 88 U/L (46-116); Anion Gap 13.2; Aspartate Amino Transferase 8 U/L (15-37); Blood Urea Nitrogen 10.0 mg/dL (7.0-18.0); Calcium 9.2 mg/dL (8.5-10.1); Carbon Dioxide 28.6 mmol/L (21.0-32.0); Chloride 104 mmol/L (98-107); Cholesterol 290 mg/dL (<=200); Estimated GFR (African America >60 (>=60 mL/min/1.73m^2); Estimated GFR (Non-African Ame >60 (>=60 mL/min/1.73m^2); Globulin 3.7 g/dL; Glucose 76 mg/dL (74-106); HDL Cholesterol 63 mg/dL (40-60); Potassium 3.8 mmol/L (3.5-5.1); Sodium 142 mmol/L (136-145); Thyroid Stimulating Hormone 3.160 uIU/mL (0.358-3.740); Total Protein 7.7 g/dL (6.4-8.2); Triglycerides 173 mg/dL (<=150); VLDL CHOLESTEROL 34.6 mg/dL
[2024-10-15 08:06] LABS: Cast Seen? NONE SEEN #/LPF (NONE SEEN); Crystals Seen? None Seen #/HPF (None Seen)
[2024-10-15 08:13] LABS: Alanine Aminotransferase 21 U/L (14-59)
== END 2024-10-15 06:30 | disposition home or self-care (01) ==
LOC: MAMMO 06:31
PROVIDERS: PCP Nurse Practitioner; Visit Provider Nurse Practitioner
DX: Z12.31 Encounter for screening mammogram for malignant neoplasm of breast (principal); I73.9 Peripheral vascular disease, unspecified; K21.9 Gastro-esophageal reflux disease without esophagitis; E03.9 Hypothyroidism, unspecified; F41.9 Anxiety disorder, unspecified; E78.2 Mixed hyperlipidemia; Z72.0 Tobacco use; Z80.8 Family history of malignant neoplasm of other organs or systems
CPT/HCPCS: 36415; 77063; 77067; 80053; 80061; 81001; 84439; 84443; 85025